=== PATIENT | male | born 1965 | race Two or more races ===

== ENCOUNTER 2017-01-29 08:22 | Inpatient (IN) | payer OTHER ==
[~2017-01-29] VITALS: Ht 188 cm; Wt 99.1 kg
[2017-01-29] VITALS (13 sets, daily range): BP systolic 93–135; BP diastolic 57–73
[~2017-01-29 08:22] MED LIST: GEMF600T3 PO; LISI10TA2 PO; OMEG1CAP38 PO; PRAV40TA2 PO
[2017-01-29 08:57] LABS: HEMATOCRIT 44.7 % (39.0-53.0); HEMOGLOBIN 15.1 g/dL (13.0-17.5); RED BLOOD COUNT 5.18 x10^6/uL (4.30-5.70); RED CELL DISTRIBUTION WIDTH 13.6 % (11.5-14.5); WHITE BLOOD COUNT 3.7 x10^3/uL (4.0-11.0)
[2017-01-29 09:08] LABS: CALCIUM 8.9 mg/dL (8.5-10.1); CREATININE 0.8 mg/dL (0.7-1.3); GFR 101.5; POTASSIUM 3.6 mmol/L (3.5-5.1); PROTHROMBIN TIME PATIENT 12.9 SEC (11.7-14.0)
[2017-01-29] MEDS ORDERED: LIDOCAINE 2% 20 ML VIAL. ONE (09:22)
[2017-01-29] MEDS ORDERED: IOHEXOL 300 MG/ML 100ML VIAL. ONE (09:22)
[2017-01-29] MEDS ORDERED: MIDAZOLAM HCL/PF 2 MG/2 ML VIAL. ONE (09:36)
[2017-01-29] MEDS ORDERED: fentaNYL PF VIAL 100 MCG/2 ML VIAL ONE (09:36)
--- NOTE | 2017-01-29 09:42 | PDOC ---
MODERATE SEDATION ASSESSMENT RISKS/ALTERNATIVES Risks/Alternatives Risks and alternatives of this type of sedation and procedure discussed with: RISK/ALTERNATIVES: Patient H & P ON CHART H & P H & P on chart and reviewed for co-morbid conditions and appropriate labs. H&P ON CHART: Yes STATUS PREG STATUS ASSESSED: Yes MEDS/ALLERGIES REVIEWED Meds/Allergies Reviewed Medications and Allergies including time and route of recently administered narcotics and sedatives. MEDS/ALLERGIES REVIEWED: Yes ASA RATING ASA RATING: II AIRWAY ASSESSMENT Airway Assessment Airway patency, oral function limitations, presence of caps, crowns, dentures, partials, and ability to extend neck assessed. AIRWAY ASSESSMENT: Yes MALLAMPATI SCORE MALLAMPATI SCORE: II PRE-SEDATION ASSESSMENT PRE-SEDATION ASSESSMENT: Yes ASIF BOWDEN MD Jan 29, 2017 09:42
[2017-01-29] MEDS ORDERED: NITROGLYCERIN SUBLINGUAL 0.4 MG BOTTLE OF 25. SL PRN (10:15)
[2017-01-29] MEDS ORDERED: IOHEXOL 300 MG/ML 100ML VIAL. IART ONE (10:15)
[2017-01-29] MEDS ORDERED: LIDOCAINE 2% 20 ML VIAL. IJ ONE (10:15)
[2017-01-29] MEDS ORDERED: MIDAZOLAM HCL/PF 2 MG/2 ML VIAL. IV ONE (10:15)
[2017-01-29] MEDS ORDERED: 0.9 % SODIUM CHLORIDE 10 ML DISP.SYRIN. IV PRN (10:15)
[2017-01-29] MEDS ORDERED: fentaNYL PF VIAL 100 MCG/2 ML VIAL IV ONE (10:15)
[2017-01-29] MEDS ORDERED: GEMF600T3 PO (11:09)
[2017-01-29] MEDS ORDERED: DAPA1TAB PO (11:09)
[2017-01-29] MEDS ORDERED: DEXTROSE 50% 25 GM / 50ML DISP.SYRIN. IV PRN (11:45)
[2017-01-29] MEDS: INSULIN ASPART 300 UNITS/3 ML INSULN.PEN SQ SCH ×2 (12:00→17:00)
[2017-01-29 12:17] LABS: BASO % 1 % (0-3); EOS % 1 % (0-3); HEMATOCRIT 45.1 % (39.0-53.0); HEMOGLOBIN 15.3 g/dL (13.0-17.5); LYMPH # 1.6 x10^3/uL (1.0-4.8); LYMPH % 44 % (24-48); MEAN CORPUSCULAR HEMOGLOBIN 29 pg (25-35); MEAN CORPUSCULAR HGB CONC 34 g/dL (31-37); MEAN CORPUSCULAR VOLUME 87 fL (79-100); MONO % 8 % (0-9); NEUT % 46 % (31-73); PLATELET COUNT 144 x10^3/uL (140-400); RED BLOOD COUNT 5.18 x10^6/uL (4.30-5.70); RED CELL DISTRIBUTION WIDTH 13.9 % (11.5-14.5); WHITE BLOOD COUNT 3.6 x10^3/uL (4.0-11.0)
[2017-01-29] MEDS ORDERED: PNEUMOCOCCAL VAX SCREEN BY RX. MC PRN (12:30)
[2017-01-29] MEDS ORDERED: PNEUMOC CONJ VACC 23-VALENT 0.5 ML VIAL. VAX IM ONE (13:00)
[2017-01-29] MEDS ORDERED: LISINOPRIL 10 MG TABLET PO SCH (15:30)
--- NOTE | 2017-01-29 15:51 | CARD ---
APPROVED REPORT Procedure(s) performed: Moderate Sedation: 40 Minutes HISTORY The patient is a 51 year-old male with a history of : previous [place], diabetes mellitus with treatment, coronary artery disease, previous PCI (The PCI date was ), hypertension, dyslipidemia. INDICATION The indication(s) include : positive stress test, unstable angina , chest pain. CASE TECHNIQUE The patient was brought electively into the cardiac catheterization lab. A timeout was performed conf irming the patient's name, date of , procedure, and site of procedure. All necessary parties wer e wearing the appropriate personal protective equipment and radiation monitoring devices. After expla ining the risks and benefits of the procedure, informed consent was obtained.(See nursing notes for m edications administered). The right groin was sterilely prepped and draped. The right femoral groin w as infiltrated with 2% Lidocaine subcutaneous anesthesia. During this case, Fluoroscopy and low osmol ar contrast were used for imaging. A sheath was inserted into the right femoral artery without diffic ulty. Coronary angiography was performed using coronary diagnostic catheters. The left coronary syste m was accessed and visualized with a Diagnostic catheter. The right coronary system was accessed and visualized with a Diagnostic catheter. The left ventricle was accessed and visualized with a Diagnost ic catheter. Left ventricular/Aortic Valve gradient assessed on pullback. Left ventriculogram was per formed in SCHMIDT projection. Hemostasis was obtained with manual pressure following sheath removal witho ut any complications. The patient tolerated the procedure well and there were no complications associ ated with the procedure. Coronary Angiography The patient's coronary anatomy is right dominant. The left main coronary artery is a medium size vessel free of disease. The left main bifurcates to th e left anterior descending and circumflex. The left anterior descending artery is a medium size vessel with stenosis. There is a 90% stenosis in the mid segment. The first diagonal branch is a medium size vessel with stenosis. There is a 90% scottie nosis in the proximal segment. The second diagonal branch is a small size vessel free of disease. The third diagonal branch is a small size vessel free of disease. The circumflex artery is a medium size vessel with stenosis. There is a 100% stenosis in the mid segm ent. The first obtuse marginal branch is a medium size vessel free of disease. The second obtuse raudel inal branch is a medium size vessel with stenosis. There is a 100% stenosis in the mid segment. above the stents The right coronary artery is a medium size vessel with stenosis. There is a 85% stenosis in the mid s egment. and a 90% distal lesion The right posterior descending artery is a medium size vessel with in timal irregularities and without significant stenosis. The right posterolateral branch is a medium si ze vessel with stenosis. There is a 100% stenosis in the ostial segment. Left Ventriculography The left ventricle is normal in size with normal contractility. The left ventricular ejection fractio n is estimated to be 50%. The left ventricular end diastolic pressure is 12 mmHg. There was no gradie nt across the aortic valve upon pullback. Conclusion This pt with a Hx of stenting to the RCA and the OM has all of the stents occluded. Severe [place] vessel CAD in a diabetic pt. The LV EF is low normal. I would recommend CABGS. Recommendations CABG
[2017-01-29] MEDS: GEMFIBROZIL 600 MG TABLET. PO SCH (15:55)
[2017-01-29] MEDS: OMEGA-3 FATTY ACIDS/FISH OIL 1,000 MG CAPSULE. PO SCH (15:55)
--- NOTE | 2017-01-29 18:12 | HP ---
ADMIT DATE: 01/29/2017 CHIEF COMPLAINT: Chest pain. HISTORY OF PRESENT ILLNESS: This patient is a 51-year-old gentleman with a known history of hypertension and diabetes who has known coronary artery disease and has had multiple stenting of the circumflex and the right coronary artery. The patient came to see me because he kept having episodes of exertional chest pains and a stress test was done in the office that showed significant changes with the EKG. It was decided to bring the patient in for a heart catheterization. After we obtained an informed consent, a heart catheterization was performed earlier today and it shows severe triple vessel coronary artery disease with a left ventricular ejection fraction of 50%. At the present time, the patient denies having any chest pains. PAST MEDICAL HISTORY: Significant for hypertension, diabetes and coronary artery disease. PHYSICAL EXAMINATION: GENERAL: The patient is not in acute distress at this time. HEENT: Pupils are reactive, oral mucosa well hydrated. NECK: Supple. No JVD. LUNGS: Clear. HEART: Regular rate and rhythm, normal S1, normal S2, no S3, no S4, no rubs, no clicks, no murmurs. ABDOMEN: Soft. Bowel sounds are present. EXTREMITIES: No edema. NEUROLOGIC: Grossly intact. IMPRESSION: This patient came in with exertional angina and has a known history of coronary artery disease with previous stenting. He had a heart catheterization done today that shows severe triple vessel coronary artery disease, therefore we are going to consult the CV surgeon for bypass surgery. This will be done during this admission. I have discussed this with the patient as well as the family. ASIF BOWDEN MD DR: MONIQUE/felipe JOB#: [id number] / [id number]
--- NOTE | 2017-01-29 18:28 | PDOC2 ---
CONSULT Date of Consult Date of Consult DATE: 01/29/17 TIME: 18:19 Reason for Consult Reason for Consult: Severe three-vessel coronary artery disease Referring Physician Referring Physician: Dr. Crow Identification/Chief Complaint Chief Complaint Angina and shortness of breath Problems: Source Source: Chart review, Patient History of Present Illness Reason for Visit: The patient is a 51-year-old male, with a history of diabetes and hyperlipidemia , and known ischemic heart disease status post PCI to the RCA and obtuse marginal proximally 10 years ago, who presents with a long-standing history of angina on exertion. He also reports shortness of breath. He had a stress test which was positive. He underwent coronary angiography today which demonstrated a 90% proximal LAD stenosis, an occluded mid left circumflex with an occluded OM stent, ostial disease in a relatively large first diagonal, an occluded RCA stent with a potentially bypassable RPDA. LV function is preserved on LV gram. I was consulted to consider the patient for coronary surgical revascularization. Past Medical History Cardiovascular: CAD, HTN, Hyperlipidemia Pulmonary: No pertinent hx GI: No pertinent hx Heme/Onc: No pertinent hx Hepatobiliary: No pertinent hx Psych: No pertinent hx Rheumatologic: No pertinent hx Infectious disease: No pertinent hx ENT: No pertinent hx Renal/: No pertinent hx Endocrine: No pertinent hx Dermatology: No pertinent hx Past Surgical History Past Surgical History: No pertinent history Family History Family History: No Significant Social History No ALCOHOL: none Drugs: None Lives: with Family Current Medications Current Medications Current Medications Heparin Sodium/ Sodium Chloride 500 ml @ As Directed STK-MED ONCE .ROUTE ; Start 01/29/17 at 09:21; Stop 01/29/17 at 09:22; Status DC Iohexol (Omnipaque 300 Mg/ml) 100 ml STK-MED ONCE .ROUTE ; Start 01/29/17 at 09 :22; Stop 01/29/17 at 09:23; Status DC Lidocaine HCl 20 ml STK-MED ONCE .ROUTE ; Start 01/29/17 at 09:22; Stop at 09:23; Status DC Fentanyl Citrate (Fentanyl 2ml Vial) 100 mcg STK-MED ONCE .ROUTE ; Start at 09:36; Stop 01/29/17 at 09:37; Status DC Midazolam HCl (Versed) 2 mg STK-MED ONCE .ROUTE ; Start 01/29/17 at 09:36; Stop 01/29/17 at 09:37; Status DC Heparin Sodium/ Sodium Chloride 1,000 unit 1X ONCE IART Last administered on 01/29/17 10:16; Start 01/29/17 at 10:15; Stop 01/29/17 at 10:16; Status DC Midazolam HCl (Versed) 2 mg 1X ONCE IV Last administered on 01/29/17 10:17; Start 01/29/17 at 10:15; Stop 01/29/17 at 10:16; Status DC Fentanyl Citrate (Fentanyl 2ml Vial) 100 mcg 1X ONCE IV Last administered on 01/29/17 10:17; Start 01/29/17 at 10:15; Stop 01/29/17 at 10:16; Status DC Iohexol (Omnipaque 300 Mg/ml) 100 ml 1X ONCE IART Last administered on 10:16; Start 01/29/17 at 10:15; Stop 01/29/17 at 10:16; Status DC Lidocaine HCl 17 ml 1X ONCE IJ Last administered on 01/29/17 10:16; Start 01/29/17 at 10:15; Stop 01/29/17 at 10:16; Status DC Sodium Chloride (Normal Saline Flush) 3 ml QSHIFT PRN IV AFTER MEDS AND BLOOD DRAWS; Start 01/29/17 at 10:15; Stop 01/30/17 at 10:14 Nitroglycerin (Nitrostat) 0.4 mg PRN Q5MIN PRN SL CHEST PAIN; Start 01/29/17 at 10:15; Stop 01/30/17 at 10:14 Gemfibrozil (Lopid) 600 mg DAILY PO Last administered on 01/29/17 15:55; Start 01/29/17 at 12:30 Fish Oil (Fish Oil) 1,000 mg DAILY PO Last administered on 01/29/17 15:55; Start 01/29/17 at 12:30 Atorvastatin Calcium (Lipitor) 10 mg QHS PO ; Start 01/29/17 at 21:00 Insulin Aspart (NovoLOG) 0-5 UNITS TIDWMEALS SQ ; Start 01/29/17 at 12:30 Dextrose (Dextrose 50%-Water Syringe) 12.5 gm PRN Q15MIN PRN IV SEE COMMENTS; Start 01/29/17 at 11:45 Pneumococcal Polyvalent Vaccine (Do NOT chart on this placeholder) 1 each PRN 1X PRN MC SEE COMMENTS; Start 01/29/17 at 12:30; Status UNV Pneumococcal Polyvalent Vaccine (Pneumovax 23) 0.5 ml ONCE ONCE VAX IM ; Start 01/29/17 at 13:00; Stop 01/29/17 at 13:01; Status DC Lisinopril (Prinivil) 10 mg DAILY PO ; Start 01/29/17 at 15:30; Stop 01/29/17 at 18:09; Status DC Metoprolol Tartrate (Lopressor) 25 mg BID PO ; Start 01/29/17 at 21:00 Zolpidem Tartrate (Ambien) 5 mg PRN QHS PRN PO INSOMNIA, MAY REPEAT IN 1HR; Start 01/29/17 at 18:15 Cefazolin Sodium/ Dextrose 50 ml @ 100 mls/hr 1X ONCE IV ; Start 01/30/17 at 06:00; Stop 01/30/17 at 06:29 Active Scripts Active Reported Gemfibrozil 600 Mg Tablet 1 Tab PO DAILY Xigduo Xr 5 mg-500 mg Tablet (Dapagliflozin/Metformin HCl) 1 Each Tab.bp.24h 1 Each PO BID Avery 3 Fish Oil Softgel (Avery-3 Fatty Acids/Fish Oil) 1 Each Capsule.dr 1 Each PO DAILY Pravastatin Sodium 40 Mg Tablet 40 Mg PO DAILY Lisinopril 10 Mg Tablet 10 Mg PO DAILY Allergies Allergies: Coded Allergies: No Known Drug Allergies (Unverified , 01/17/17) ROS General: No: Chills, Night Sweats, Fatigue, Malaise, Appetite PSYCHOLOGICAL ROS: No: Anxiety, Behavioral Disorder, Concentration difficultie , Decreased libido, Depression, Disorientation, Hallucinations, Hostility, Irritablity, Memory difficulties, Mood Swings, Obsessive thoughts, Physical abuse, Sexual abuse, Sleep disturbances, Suicidal ideation Eyes: No Blurry vision, No Decreased vision, No Double vision, No Dry eyes, No Excessive tearing, No Eye Pain, No Itchy Eyes, No Loss of vision, No Photophobia , No Scotomata, No Uses contacts, No Uses glasses HEENT: No: Heacaches, Visual Changes, Hearing change, Nasal congestion, Nasal discharge, Oral lesions, Sinus pain, Sore Throat, Epistaxis, Sneezing, Snoring, Tinnitus, Vertigo, Vocal changes ALLERGY AND IMMUNOLOGY: No: Hives, Insect Bite Sensitivity, Itchy/Watery Eyes, Nasal Congestion, Post Nasal Drip, Seasonal Allergies Hematological and Lymphatic: No: Bleeding Problems, Blood Clots, Blood Transfusions, Brusing, Night Sweats, Pallor, Swollen Lymph Nodes Respiratory: YES: SOB with excertion, No: Cough, Hemoptysis, Orthopnea, Pleuritic Pain, Shortness of breath, Sputum Changes, Stridor, Tachypnea, Wheezing Cardiovascular: yes Chest Pain, No Palpitations, No Orthopnea, No Paroxysmal Noc. Dyspnea, No Edema, No Lt Headedness Gastrointestinal: No Nausea, No Vomiting, No Abdominal Pain, No Diarrhea, No Constipation, No Melena, No Hematochezia Genitourinary: No Dysuria, No Frequency, No Incontinence, No Hematuria, No Retention, No Discharge, No Urgency, No Pain, No Flank Pain Musculoskeletal: No Gait Disturbance, No Joint Pain, No Joint Stiffness, No Joint Swelling, No Muscle Pain, No Muscular Weakness, No Pain In:, No Swelling In: Neurological: No Behavorial Changes, No Bowel/Bladder ControlChng, No Confusion , No Dizziness, No Gait Disturbance, No Headaches, No Impaired Coord/balance, No Memory Loss, No Numbness/Tingling, No Seizures, No Speech Problems, No Tremors, No Visual Changes, No Weakness Skin: Yes Other, No Dry Skin, No Eczema, No Hair Changes, No Lumps, No Mole Changes, No Mottling, No Nail Changes, No Pruritus, No Rash, No Skin Lesion Changes, No Acne Physical Exam General: Alert, Oriented X3, No acute distress HEENT: Atraumatic, PERRLA Lungs: Clear to auscultation Heart: Regular rate, Normal S1, Normal S2 Abdomen: Normal bowel sounds, Soft, No tenderness, No hepatosplenomegaly Extremities: No edema, Normal pulses, Other (Kristian's test positive on the left) Skin: No significant lesion Neuro: Normal gait, Normal speech, Strength at 5/5 X4 ext, Normal tone, Sensation intact, Cranial nerves 3-12 NL, Reflexes 2+ MUSCULOSKELETAL: No deformity Vitals VITALS Vital Signs Date Time Temp Pulse Resp B/P (MAP) Pulse Ox O2 Delivery O2 Flow Rate FiO2 01/29/17 15:29 100/67 01/29/17 15:00 98.2 72 16 98 Nasal Cannula 98.2 01/29/17 12:02 2.0 Labs Labs Laboratory Tests Test 01/29/17 08:50 01/29/17 09:04 01/29/17 11:45 01/29/17 17:33 White Blood Count 3.6 x10^3/uL (4.0-11.0) Red Blood Count 5.18 x10^6/uL (4.30-5.70) Hemoglobin 15.3 g/dL (13.0-17.5) Hematocrit 45.1 % (39.0-53.0) Mean Corpuscular Volume 87 fL (79-100) Mean Corpuscular Hemoglobin 29 pg (25-35) Mean Corpuscular Hemoglobin Concent 34 g/dL (31-37) Red Cell Distribution Width 13.9 % (11.5-14.5) Platelet Count 144 x10^3/uL (140-400) Neutrophils (%) (Auto) 46 % (31-73) Lymphocytes (%) (Auto) 44 % (24-48) Monocytes (%) (Auto) 8 % (0-9) Eosinophils (%) (Auto) 1 % (0-3) Basophils (%) (Auto) 1 % (0-3) Neutrophils # (Auto) 1.7 x10^3uL (1.8-7.7) Lymphocytes # (Auto) 1.6 x10^3/uL (1.0-4.8) Monocytes # (Auto) 0.3 x10^3/uL (0.0-1.1) Eosinophils # (Auto) 0.0 x10^3/uL (0.0-0.7) Basophils # (Auto) 0.0 x10^3/uL (0.0-0.2) Prothrombin Time 12.9 SEC (11.7-14.0) Prothromb Time International Ratio 1.0 (0.8-1.1) Sodium Level 140 mmol/L (136-145) Potassium Level 3.6 mmol/L (3.5-5.1) Chloride Level 103 mmol/L (98-107) Carbon Dioxide Level 27 mmol/L (21-32) Anion Gap 10 (6-14) Blood Urea Nitrogen 14 mg/dL (8-26) Creatinine 0.8 mg/dL (0.7-1.3) Estimated GFR (Cockcroft-Gault) 101.5 Glucose Level 127 mg/dL (70-99) Calcium Level 8.9 mg/dL (8.5-10.1) Glucose (Fingerstick) 76 mg/dL (70-99) 117 mg/dL (70-99) 86 mg/dL (70-99) Laboratory Tests Test 01/29/17 08:50 01/29/17 09:04 01/29/17 11:45 01/29/17 17:33 White Blood Count 3.6 x10^3/uL (4.0-11.0) Red Blood Count 5.18 x10^6/uL (4.30-5.70) Hemoglobin 15.3 g/dL (13.0-17.5) Hematocrit 45.1 % (39.0-53.0) Mean Corpuscular Volume 87 fL (79-100) Mean Corpuscular Hemoglobin 29 pg (25-35) Mean Corpuscular Hemoglobin Concent 34 g/dL (31-37) Red Cell Distribution Width 13.9 % (11.5-14.5) Platelet Count 144 x10^3/uL (140-400) Neutrophils (%) (Auto) 46 % (31-73) Lymphocytes (%) (Auto) 44 % (24-48) Monocytes (%) (Auto) 8 % (0-9) Eosinophils (%) (Auto) 1 % (0-3) Basophils (%) (Auto) 1 % (0-3) Neutrophils # (Auto) 1.7 x10^3uL (1.8-7.7) Lymphocytes # (Auto) 1.6 x10^3/uL (1.0-4.8) Monocytes # (Auto) 0.3 x10^3/uL (0.0-1.1) Eosinophils # (Auto) 0.0 x10^3/uL (0.0-0.7) Basophils # (Auto) 0.0 x10^3/uL (0.0-0.2) Prothrombin Time 12.9 SEC (11.7-14.0) Prothromb Time International Ratio 1.0 (0.8-1.1) Sodium Level 140 mmol/L (136-145) Potassium Level 3.6 mmol/L (3.5-5.1) Chloride Level 103 mmol/L (98-107) Carbon Dioxide Level 27 mmol/L (21-32) Anion Gap 10 (6-14) Blood Urea Nitrogen 14 mg/dL (8-26) Creatinine 0.8 mg/dL (0.7-1.3) Estimated GFR (Cockcroft-Gault) 101.5 Glucose Level 127 mg/dL (70-99) Calcium Level 8.9 mg/dL (8.5-10.1) Glucose (Fingerstick) 76 mg/dL (70-99) 117 mg/dL (70-99) 86 mg/dL (70-99) Images Images Coronary Angiography The patient's coronary anatomy is right dominant. The left main coronary artery is a medium size vessel free of disease. The left main bifurcates to the left anterior descending and circumflex. The left anterior descending artery is a medium size vessel with stenosis. There is a 90% stenosis in the mid segment. The first diagonal branch is a medium size vessel with stenosis. There is a 90% stenosis in the proximal segment. The second diagonal branch is a small size vessel free of disease. The third diagonal branch is a small size vessel free of disease. The circumflex artery is a medium size vessel with stenosis. There is a 100% stenosis in the mid segment. The first obtuse marginal branch is a medium size vessel free of disease. The second obtuse marginal branch is a medium size vessel with stenosis. There is a 100% stenosis in the mid segment. above the stents The right coronary artery is a medium size vessel with stenosis. There is a 85% stenosis in the mid segment. and a 90% distal lesion The right posterior descending artery is a medium size vessel with intimal irregularities and without significant stenosis. The right posterolateral branch is a medium size vessel with stenosis. There is a 100% stenosis in the ostial segment. Left Ventriculography The left ventricle is normal in size with normal contractility. The left ventricular ejection fraction is estimated to be 50%. The left ventricular end diastolic pressure is 12 mmHg. There was no gradient across the aortic valve upon pullback. Conclusion This pt with a Hx of stenting to the RCA and the OM has all of the stents occluded. Severe [place] vessel CAD in a diabetic pt. The LV EF is low normal. Assessment/Plan Assessment/Plan 51-year-old male, with a history of diabetes and hyperlipidemia, and known ischemic heart disease status post PCI to the RCA and obtuse marginal proximally 10 years ago, who presents with a long-standing history of angina on exertion. He also reports shortness of breath. He had a stress test which was positive. He underwent coronary angiography today which demonstrated a 90% proximal LAD stenosis, an occluded mid left circumflex with an occluded OM stent , ostial disease in a relatively large first diagonal, an occluded RCA stent with a potentially bypassable RPDA. LV function is preserved on LV gram. I was consulted to consider the patient for coronary surgical revascularization. The patient is a good candidate for CABG Will plan for CABG 3-4 on , February 01, 2017. I will use a left radial artery for the OM and the diagonal. It is possible that the OM may not be bypassable considering that the patient currently has a long stent. I will not be able to sew a graft on to the stent. Hopefully no be a spot distal to the stent in order to bypass the OM. Otherwise he will need a AMAYA to LAD, radial artery to D1 and possibly OM1, SVG to RPDA. I quoted a perioperative mortality of 1-2%, 1% risk of renal failure, 1% risk of stroke, 5%-10% risk of pneumonia, 5% risk of wound infection, 5-10% of re- sternotomy for bleeding, 5% risk of perioperative ID, 20%-30% risk of postoperative arrhythmias. The patient accepts these risks and agrees to proceed. Will obtain Transthoracic echo Carotid duplex Bilateral lower extremity vein mapping Noncontrast CT of the chest Crossmatch to units PRBCs, on hold for OR He has a good Kristian's test. He has a strong ulnar pulse on the left. He is right -handed. SB MOMIN MD Jan 29, 2017 18:28
[2017-01-29] MEDS: ATORVASTATIN CALCIUM 10 MG TABLET. PO SCH (20:53)
[2017-01-29] MEDS: METOPROLOL TART IMMED RELEASE 25 MG TABLET. PO SCH (20:54)
[2017-01-30 03:21] VITALS: BP 96/60
[2017-01-30 05:14] LABS: BASO % 1 % (0-3); EOS % 1 % (0-3); HEMATOCRIT 44.3 % (39.0-53.0); HEMOGLOBIN 15.2 g/dL (13.0-17.5); LYMPH # 2.3 x10^3/uL (1.0-4.8); LYMPH % 46 % (24-48); MEAN CORPUSCULAR HEMOGLOBIN 30 pg (25-35); MEAN CORPUSCULAR HGB CONC 34 g/dL (31-37); MEAN CORPUSCULAR VOLUME 86 fL (79-100); MONO % 8 % (0-9); NEUT % 45 % (31-73); PLATELET COUNT 142 x10^3/uL (140-400); RED BLOOD COUNT 5.14 x10^6/uL (4.30-5.70); RED CELL DISTRIBUTION WIDTH 14.1 % (11.5-14.5); WHITE BLOOD COUNT 4.9 x10^3/uL (4.0-11.0)
[2017-01-30 05:23] LABS: INR 1.1 (0.8-1.1); PROTHROMBIN TIME PATIENT 13.1 SEC (11.7-14.0)
[2017-01-30 05:43] LABS: ALBUMIN 3.8 g/dL (3.4-5.0); CALCIUM 8.8 mg/dL (8.5-10.1); CREATININE 0.7 mg/dL (0.7-1.3); DIRECT BILIRUBIN 0.1 mg/dL (0.0-0.2); GFR 118.4; POTASSIUM 3.4 mmol/L (3.5-5.1); TOTAL BILIRUBIN 0.6 mg/dL (0.2-1.0); TOTAL PROTEIN 7.5 g/dL (6.4-8.2)
[2017-01-30 07:00] VITALS: BP 102/67
--- NOTE | 2017-01-30 07:22 | RAD ---
Carotid ultrasound, 01/29/2017: History: Preop for CABG, vascular disease Duplex evaluation of the carotid arteries in neck was performed including grayscale, color-flow and spectral Doppler analysis There is mild smooth intimal thickening bilaterally. No significant focal plaque formation is seen. The peak systolic velocity in the right internal carotid artery is 59 cm/s with an end-diastolic velocity of 25 cm/s. The peak systolic velocity in the left internal carotid artery is 54 cm per sec with an end-diastolic velocity of 26 cm/s. Antegrade flow is present in both vertebral arteries in the neck. IMPRESSION: No duplex evidence of significant carotid stenosis in the neck. Note: Stenosis calculations for CTA, MRA and conventional angiography are based upon determination of the distal ICA diameter in accordance with the NASCET methodology. Stenosis calculations for Doppler studies are derived from validated velocity criteria which are known to correlate with NASCET methodology of determining stenosis.
--- NOTE | 2017-01-30 07:25 | RAD ---
Bilateral lower extremity vein mapping, 01/29/2017: History: Preop for coronary artery surgery Grayscale evaluation of the saphenous veins in both lower extremities was performed as requested. On the right, the greater saphenous vein is patent measuring 3.0 to 4.2 mm in diameter in the thigh and 2.6 to 3.3 mm in the lower leg. The right lesser saphenous vein is patent measuring 1.9 to 2.7 mm. On the left, the greater saphenous vein in the thigh is patent measuring 3.6 to 6.6 mm. In the lower leg it measures 2.8 to 3.3 mm. The left lesser saphenous vein is patent measuring 2.4 to 2.8 mm. IMPRESSION: Patent greater saphenous and lesser saphenous veins in both lower extremities with measurements as described above and fully delineated on the technologist worksheet available in the [employer] PACS system.
--- NOTE | 2017-01-30 07:30 | RAD ---
Portable chest, 01/30/2017: History: Preop CABG The heart size and pulmonary vascularity are normal. There is minimal linear atelectasis or scarring in the left base. The lungs are otherwise clear. No pleural fluid is evident. Impression: Minimal left basilar linear atelectasis or scarring.
[2017-01-30] MEDS: INSULIN ASPART 300 UNITS/3 ML INSULN.PEN SQ SCH ×3 (07:44→17:00)
[2017-01-30] MEDS: METOPROLOL TART IMMED RELEASE 25 MG TABLET. PO SCH ×2 (08:59→21:38)
[2017-01-30] MEDS: GEMFIBROZIL 600 MG TABLET. PO SCH (08:59)
[2017-01-30] MEDS: OMEGA-3 FATTY ACIDS/FISH OIL 1,000 MG CAPSULE. PO SCH (08:59)
--- NOTE | 2017-01-30 09:45 | RAD ---
CT chest without contrast 01/20/2017 Clinical indication: Preoperative CABG. Assess for lung lesions and ascending aortic calcifications. Comparison: None. Technique: Multiple CT images of the chest were obtained without contrast according to standard protocol. PQRS Compliance Statement: One or more of the following individualized dose reduction techniques were utilized for this examination: 1. Automated exposure control 2. Adjustment of the mA and/or kV according to patient size 3. Use of iterative reconstruction technique CT chest findings: Heart size is normal without significant pericardial effusion. There are three-vessel coronary artery calcifications. The thoracic aorta is normal in caliber with trace calcifications at the thoracic aortic arch. No axillary, mediastinal or obvious hilar lymphadenopathy, though evaluation is limited in the absence of intravenous contrast. The central airways are patent. There is a subpleural noncalcified nodule in the left lower lobe measuring 0.4 cm series 2/image 45. There is minimal linear atelectasis or scarring in the lung bases. No pleural effusion or pneumothorax. There are no destructive osseous lesions. Limited images of the upper abdomen: Grossly unremarkable. Impression: 1. Small, 0.4 cm, noncalcified left lower lobe pulmonary nodule, indeterminate. Follow-up CT chest in 3 months is recommended to assess for stability. 2. Normal caliber thoracic aorta with trace calcified atheromatous disease of the thoracic aortic arch. 3. Three-vessel coronary artery calcifications.
[2017-01-30 10:51] VITALS: BP 115/75
[2017-01-30 14:58] VITALS: BP 123/69
--- NOTE | 2017-01-30 16:58 | CARD ---
APPROVED REPORT EXAM: Two-dimensional and M-mode echocardiogram with Doppler and color Doppler. Other Information Quality : Good INDICATION Cardiac Disease: CAD Chest Pain Pre-Op CABG 2D DIMENSIONS RVDd2.9 (2.9-3.5cm)Left Atrium(2D)3.4 (1.6-4.0cm) IVSd1.2 (0.7-1.1cm)Aortic Root(2D)3.0 (2.0-3.7cm) LVDd5.0 (3.9-5.9cm)LVOT Diameter2.3 (1.8-2.4cm) PWd1.1 (0.7-1.1cm)LVDs4.0 (2.5-4.0cm) FS (%) 25.0 %SV50.3 ml LVEF(%)50.0 (>50%) Aortic Valve AoV Peak Jefferson.114.3cm/sAoV VTI22.5cm AO Peak GR.5.2mmHgLVOT Peak [place].97.2cm/s LVOT VTI 19.68cmAO Mean GR.3mmHg HAILE (VMAX)3.34oq3VBD (VTI)3.49cm2 Mitral Valve MV E Ntgyblzx68.0cm/sMV DECEL LRCN039io MV A Nechqwgq91.6cm/sMV TRS77mb E/A Ratio0.8MVA (PHT)3.63cm2 TDI E/Lateral E'4.3E/Medial E'7.2 Pulmonary Vein S1 Ckhmejrf09.8cm/sD2 Hsxrmzpd49.9cm/s LEFT VENTRICLE The left ventricle is normal size. There is mild concentric left ventricular hypertrophy. The Ejectio n Fraction of the LV is 50%. There is hypokinesis in the lateral wall. There is hypokinesis in the in ferior wall. Transmitral Doppler flow pattern is Grade I-abnormal relaxation pattern. RIGHT VENTRICLE The right ventricle is normal size. The right ventricular systolic function is normal. ATRIA The left atrium size is normal. The right atrium size is normal. The interatrial septum is intact wit h no evidence for an atrial septal defect or patent foramen ovale as noted on 2-D or Doppler imaging. AORTIC VALVE The aortic valve is normal in structure and function. Doppler and Color Flow revealed no significant aortic regurgitation. There is no significant aortic valvular stenosis. MITRAL VALVE The mitral valve is normal in structure and function. There is no evidence of mitral valve prolapse. There is no mitral valve stenosis. Doppler and Color Flow revealed no mitral valve regurgitation note d. TRICUSPID VALVE The tricuspid valve is normal in structure and function. Doppler and Color Flow revealed no tricuspid valve regurgitation noted. There is no tricuspid valve stenosis. PULMONIC VALVE The pulmonary valve is normal in structure and function. Doppler and Color Flow revealed no pulmonic valvular regurgitation. There is no pulmonic valvular stenosis. GREAT VESSELS The aortic root is normal in size. The ascending aorta is normal in size. The IVC is normal in size a nd collapses >50% with inspiration. PERICARDIAL EFFUSION There is no evidence of significant pericardial effusion. Critical Notification Critical Value: No <Conclusion> The Ejection Fraction of the LV is 50%. There is mild concentric left ventricular hypertrophy. Transmitral Doppler flow pattern is Grade I-abnormal relaxation pattern. The left atrium size is normal. The right atrium size is normal. The aortic valve is normal in structure and function. The mitral valve is normal in structure and function. The tricuspid valve is normal in structure and function. The pulmonary valve is normal in structure and function. There is no evidence of significant pericardial effusion.
--- NOTE | 2017-01-30 17:33 | PDOC ---
PROGRESS NOTES Subjective Subjective No new complaints. Patient going for CABG tomorrow. Objective Objective Vital Signs Date Time Temp Pulse Resp B/P (MAP) Pulse Ox O2 Delivery O2 Flow Rate FiO2 01/30/17 14:58 98.5 76 16 123/69 (87) 98 Room Air 98.5 01/29/17 20:00 2.0 Intake and Output 01/31/17 07:00 # Voids 3 Physical Exam Physical Exam No significant changes cardiac exam Assessment Assessment A escamilla with severe coronary artery disease. Going for CABG in a.m. Comment Review of Relevant I have reviewed the following items nguyễn (where applicable) has been applied. Labs Laboratory Tests Test 01/29/17 08:50 01/29/17 09:04 01/29/17 11:45 01/29/17 17:33 White Blood Count 3.6 x10^3/uL (4.0-11.0) Red Blood Count 5.18 x10^6/uL (4.30-5.70) Hemoglobin 15.3 g/dL (13.0-17.5) Hematocrit 45.1 % (39.0-53.0) Mean Corpuscular Volume 87 fL (79-100) Mean Corpuscular Hemoglobin 29 pg (25-35) Mean Corpuscular Hemoglobin Concent 34 g/dL (31-37) Red Cell Distribution Width 13.9 % (11.5-14.5) Platelet Count 144 x10^3/uL (140-400) Neutrophils (%) (Auto) 46 % (31-73) Lymphocytes (%) (Auto) 44 % (24-48) Monocytes (%) (Auto) 8 % (0-9) Eosinophils (%) (Auto) 1 % (0-3) Basophils (%) (Auto) 1 % (0-3) Neutrophils # (Auto) 1.7 x10^3uL (1.8-7.7) Lymphocytes # (Auto) 1.6 x10^3/uL (1.0-4.8) Monocytes # (Auto) 0.3 x10^3/uL (0.0-1.1) Eosinophils # (Auto) 0.0 x10^3/uL (0.0-0.7) Basophils # (Auto) 0.0 x10^3/uL (0.0-0.2) Prothrombin Time 12.9 SEC (11.7-14.0) Prothromb Time International Ratio 1.0 (0.8-1.1) Sodium Level 140 mmol/L (136-145) Potassium Level 3.6 mmol/L (3.5-5.1) Chloride Level 103 mmol/L (98-107) Carbon Dioxide Level 27 mmol/L (21-32) Anion Gap 10 (6-14) Blood Urea Nitrogen 14 mg/dL (8-26) Creatinine 0.8 mg/dL (0.7-1.3) Estimated GFR (Cockcroft-Gault) 101.5 Glucose Level 127 mg/dL (70-99) Calcium Level 8.9 mg/dL (8.5-10.1) Glucose (Fingerstick) 76 mg/dL (70-99) 117 mg/dL (70-99) 86 mg/dL (70-99) Test 01/29/17 21:20 01/30/17 03:50 01/30/17 07:21 01/30/17 11:51 Glucose (Fingerstick) 156 mg/dL (70-99) 126 mg/dL (70-99) 157 mg/dL (70-99) White Blood Count 4.9 x10^3/uL (4.0-11.0) Red Blood Count 5.14 x10^6/uL (4.30-5.70) Hemoglobin 15.2 g/dL (13.0-17.5) Hematocrit 44.3 % (39.0-53.0) Mean Corpuscular Volume 86 fL (79-100) Mean Corpuscular Hemoglobin 30 pg (25-35) Mean Corpuscular Hemoglobin Concent 34 g/dL (31-37) Red Cell Distribution Width 14.1 % (11.5-14.5) Platelet Count 142 x10^3/uL (140-400) Neutrophils (%) (Auto) 45 % (31-73) Lymphocytes (%) (Auto) 46 % (24-48) Monocytes (%) (Auto) 8 % (0-9) Eosinophils (%) (Auto) 1 % (0-3) Basophils (%) (Auto) 1 % (0-3) Neutrophils # (Auto) 2.2 x10^3uL (1.8-7.7) Lymphocytes # (Auto) 2.3 x10^3/uL (1.0-4.8) Monocytes # (Auto) 0.4 x10^3/uL (0.0-1.1) Eosinophils # (Auto) 0.0 x10^3/uL (0.0-0.7) Basophils # (Auto) 0.0 x10^3/uL (0.0-0.2) Prothrombin Time 13.1 SEC (11.7-14.0) Prothromb Time International Ratio 1.1 (0.8-1.1) Activated Partial Thromboplast Time 33 SEC (24-38) Sodium Level 138 mmol/L (136-145) Potassium Level 3.4 mmol/L (3.5-5.1) Chloride Level 102 mmol/L (98-107) Carbon Dioxide Level 28 mmol/L (21-32) Anion Gap 8 (6-14) Blood Urea Nitrogen 15 mg/dL (8-26) Creatinine 0.7 mg/dL (0.7-1.3) Estimated GFR (Cockcroft-Gault) 118.4 BUN/Creatinine Ratio 21 (6-20) Glucose Level 107 mg/dL (70-99) Calcium Level 8.8 mg/dL (8.5-10.1) Total Bilirubin 0.6 mg/dL (0.2-1.0) Direct Bilirubin 0.1 mg/dL (0.0-0.2) Aspartate Amino Transf (AST/SGOT) 18 U/L (15-37) Alanine Aminotransferase (ALT/SGPT) 25 U/L (16-63) Alkaline Phosphatase 58 U/L (46-116) Total Protein 7.5 g/dL (6.4-8.2) Albumin 3.8 g/dL (3.4-5.0) Albumin/Globulin Ratio 1.0 (1.0-1.7) Test 01/30/17 16:30 Glucose (Fingerstick) 132 mg/dL (70-99) Laboratory Tests Test 01/29/17 17:33 01/29/17 21:20 01/30/17 03:50 01/30/17 07:21 Glucose (Fingerstick) 86 mg/dL (70-99) 156 mg/dL (70-99) 126 mg/dL (70-99) White Blood Count 4.9 x10^3/uL (4.0-11.0) Red Blood Count 5.14 x10^6/uL (4.30-5.70) Hemoglobin 15.2 g/dL (13.0-17.5) Hematocrit 44.3 % (39.0-53.0) Mean Corpuscular Volume 86 fL (79-100) Mean Corpuscular Hemoglobin 30 pg (25-35) Mean Corpuscular Hemoglobin Concent 34 g/dL (31-37) Red Cell Distribution Width 14.1 % (11.5-14.5) Platelet Count 142 x10^3/uL (140-400) Neutrophils (%) (Auto) 45 % (31-73) Lymphocytes (%) (Auto) 46 % (24-48) Monocytes (%) (Auto) 8 % (0-9) Eosinophils (%) (Auto) 1 % (0-3) Basophils (%) (Auto) 1 % (0-3) Neutrophils # (Auto) 2.2 x10^3uL (1.8-7.7) Lymphocytes # (Auto) 2.3 x10^3/uL (1.0-4.8) Monocytes # (Auto) 0.4 x10^3/uL (0.0-1.1) Eosinophils # (Auto) 0.0 x10^3/uL (0.0-0.7) Basophils # (Auto) 0.0 x10^3/uL (0.0-0.2) Prothrombin Time 13.1 SEC (11.7-14.0) Prothromb Time International Ratio 1.1 (0.8-1.1) Activated Partial Thromboplast Time 33 SEC (24-38) Sodium Level 138 mmol/L (136-145) Potassium Level 3.4 mmol/L (3.5-5.1) Chloride Level 102 mmol/L (98-107) Carbon Dioxide Level 28 mmol/L (21-32) Anion Gap 8 (6-14) Blood Urea Nitrogen 15 mg/dL (8-26) Creatinine 0.7 mg/dL (0.7-1.3) Estimated GFR (Cockcroft-Gault) 118.4 BUN/Creatinine Ratio 21 (6-20) Glucose Level 107 mg/dL (70-99) Calcium Level 8.8 mg/dL (8.5-10.1) Total Bilirubin 0.6 mg/dL (0.2-1.0) Direct Bilirubin 0.1 mg/dL (0.0-0.2) Aspartate Amino Transf (AST/SGOT) 18 U/L (15-37) Alanine Aminotransferase (ALT/SGPT) 25 U/L (16-63) Alkaline Phosphatase 58 U/L (46-116) Total Protein 7.5 g/dL (6.4-8.2) Albumin 3.8 g/dL (3.4-5.0) Albumin/Globulin Ratio 1.0 (1.0-1.7) Test 01/30/17 11:51 01/30/17 16:30 Glucose (Fingerstick) 157 mg/dL (70-99) 132 mg/dL (70-99) Medications Current Medications Heparin Sodium/ Sodium Chloride 500 ml @ As Directed STK-MED ONCE .ROUTE ; Start 01/29/17 at 09:21; Stop 01/29/17 at 09:22; Status DC Iohexol (Omnipaque 300 Mg/ml) 100 ml STK-MED ONCE .ROUTE ; Start 01/29/17 at 09 :22; Stop 01/29/17 at 09:23; Status DC Lidocaine HCl 20 ml STK-MED ONCE .ROUTE ; Start 01/29/17 at 09:22; Stop at 09:23; Status DC Fentanyl Citrate (Fentanyl 2ml Vial) 100 mcg STK-MED ONCE .ROUTE ; Start at 09:36; Stop 01/29/17 at 09:37; Status DC Midazolam HCl (Versed) 2 mg STK-MED ONCE .ROUTE ; Start 01/29/17 at 09:36; Stop 01/29/17 at 09:37; Status DC Heparin Sodium/ Sodium Chloride 1,000 unit 1X ONCE IART Last administered on 01/29/17t 10:16; Start 01/29/17 at 10:15; Stop 01/29/17 at 10:16; Status DC Midazolam HCl (Versed) 2 mg 1X ONCE IV Last administered on 01/29/17t 10:17; Start 01/29/17 at 10:15; Stop 01/29/17 at 10:16; Status DC Fentanyl Citrate (Fentanyl 2ml Vial) 100 mcg 1X ONCE IV Last administered on 01/29/17 10:17; Start 01/29/17 at 10:15; Stop 01/29/17 at 10:16; Status DC Iohexol (Omnipaque 300 Mg/ml) 100 ml 1X ONCE IART Last administered on 10:16; Start 01/29/17 at 10:15; Stop 01/29/17 at 10:16; Status DC Lidocaine HCl 17 ml 1X ONCE IJ Last administered on 01/29/17 10:16; Start 01/29/17 at 10:15; Stop 01/29/17 at 10:16; Status DC Sodium Chloride (Normal Saline Flush) 3 ml QSHIFT PRN IV AFTER MEDS AND BLOOD DRAWS; Start 01/29/17 at 10:15; Stop 01/30/17 at 10:14; Status DC Nitroglycerin (Nitrostat) 0.4 mg PRN Q5MIN PRN SL CHEST PAIN; Start 01/29/17 at 10:15; Stop 01/30/17 at 10:14; Status DC Gemfibrozil (Lopid) 600 mg DAILY PO Last administered on 01/30/17 08:59; Start 01/29/17 at 12:30 Fish Oil (Fish Oil) 1,000 mg DAILY PO Last administered on 01/30/17 08:59; Start 01/29/17 at 12:30 Atorvastatin Calcium (Lipitor) 10 mg QHS PO Last administered on 01/29/17 20: 53; Start 01/29/17 at 21:00 Insulin Aspart (NovoLOG) 0-5 UNITS TIDWMEALS SQ ; Start 01/29/17 at 12:30 Dextrose (Dextrose 50%-Water Syringe) 12.5 gm PRN Q15MIN PRN IV SEE COMMENTS; Start 01/29/17 at 11:45 Pneumococcal Polyvalent Vaccine (Do NOT chart on this placeholder) 1 each PRN 1X PRN MC SEE COMMENTS; Start 01/29/17 at 12:30; Status UNV Pneumococcal Polyvalent Vaccine (Pneumovax 23) 0.5 ml ONCE ONCE VAX IM ; Start 01/29/17 at 13:00; Stop 01/29/17 at 13:01; Status DC Lisinopril (Prinivil) 10 mg DAILY PO ; Start 01/29/17 at 15:30; Stop 01/29/17 at 18:09; Status DC Metoprolol Tartrate (Lopressor) 25 mg BID PO Last administered on 01/30/17t 08 :59; Start 01/29/17 at 21:00 Zolpidem Tartrate (Ambien) 5 mg PRN QHS PRN PO INSOMNIA, MAY REPEAT IN 1HR; Start 01/29/17 at 18:15 Cefazolin Sodium/ Dextrose 50 ml @ 100 mls/hr 1X ONCE IV ; Start 01/30/17 at 06:00; Stop 01/30/17 at 06:29; Status DC Cefazolin Sodium/ Dextrose 50 ml @ 100 mls/hr 1X PREOP ONCE IV ; Start at 06:00; Stop 01/30/17 at 09:48; Status DC Ondansetron HCl (Zofran) 4 mg PRN Q6HRS PRN IV NAUSEA/VOMITING; Start at 07:00; Stop 02/01/17 at 06:59 Fentanyl Citrate (Fentanyl 2ml Vial) 25 mcg PRN Q5MIN PRN IV MILD PAIN; Start 01/31/17 at 07:00; Stop 02/01/17 at 06:59 Fentanyl Citrate (Fentanyl 2ml Vial) 50 mcg PRN Q5MIN PRN IV MODERATE PAIN; Start 01/31/17 at 07:00; Stop 02/01/17 at 06:59 Morphine Sulfate 1 mg PRN Q10MIN PRN IV SEVERE PAIN; Start 01/31/17 at 07:00; Stop 02/01/17 at 06:59 Ringer's Solution 1,000 ml @ 30 mls/hr Q24H IV ; Start 01/31/17 at 07:00; Stop 01/31/17 at 18:59 Lidocaine HCl (Xylocaine-Mpf 1% Vial) 2 ml PRN 1X PRN ID IV START; Start 01/31 at 07:00; Stop 02/01/17 at 06:59 Hydromorphone HCl (Dilaudid) 0.5 mg PRN Q10MIN PRN IV SEV PAIN, Second choice; Start 01/31/17 at 07:00; Stop 02/01/17 at 06:59 Prochlorperazine Edisylate (Compazine) 5 mg PACU PRN PRN IV NAUSEA, MRX1; Start 01/31/17 at 07:00; Stop 02/01/17 at 06:59 Active Scripts Active Reported Gemfibrozil 600 Mg Tablet 1 Tab PO DAILY Xigduo Xr 5 mg-500 mg Tablet (Dapagliflozin/Metformin HCl) 1 Each Tab.bp.24h 1 Each PO BID [place] 3 Fish Oil Softgel ([place]-3 Fatty Acids/Fish Oil) 1 Each Capsule. 1 Each PO DAILY Pravastatin Sodium 40 Mg Tablet 40 Mg PO DAILY Lisinopril 10 Mg Tablet 10 Mg PO DAILY Vitals/I & O Vital Sign - Last 24 Hours 01/29/17 01/29/17 01/29/17 01/29/17 19:20 20:00 20:54 23:52 Temp 98.2 97.3 98.2 97.3 Pulse 85 85 60 Resp 18 16 B/P (MAP) 112/67 (82) 112/67 93/57 (69) Pulse Ox 96 97 O2 Delivery Room Air Room Air Room Air O2 Flow Rate 2.0 01/30/17 01/30/17 01/30/17 01/30/17 03:21 07:00 08:00 08:59 Temp 97.9 98.4 97.9 98.4 Pulse 59 64 64 Resp 17 B/P (MAP) 96/60 (72) 102/67 (79) 102/67 Pulse Ox 98 98 O2 Delivery Room Air Room Air Room Air 01/30/17 01/30/17 10:51 14:58 Temp 98.4 98.5 98.4 98.5 Pulse 72 76 Resp 16 16 B/P (MAP) 115/75 (88) 123/69 (87) Pulse Ox 97 98 O2 Delivery Room Air Room Air ASIF BOWDEN MD Jan 30, 2017 17:33
[2017-01-30 19:07] VITALS: BP 106/74
[2017-01-30] MEDS: ATORVASTATIN CALCIUM 10 MG TABLET. PO SCH (21:38)
[2017-01-30 22:43] VITALS: BP 116/81
[2017-01-31] VITALS (17 sets, daily range): BP systolic 90–144; BP diastolic 55–81
--- NOTE | 2017-01-31 06:19 | EKG ---
[facility] [address] [place] [address] Test Date: 2017-01-31 Test Time: 06:16:04 Pat Name: YANCI RODRIGUEZ Department: Room: 211 1 Gender: M Institutional Commodity Analyst: JAROD : 1965 Requested By: SB MOMIN Order Number: [id number] Reading MD: Alvin Flynn MD Measurements Intervals [place] Rate: 72 P: 31 [place]: 166 QRS: 28 QRSD: 100 T: 8 QT: 388 QTc: 431 Interpretive Statements SINUS RHYTHM Electronically Signed On 01-31-2017 8:27:53 SUPERVISOR GLUING by Alvin Flynn MD
[2017-01-31] MEDS ORDERED: HEPARIN 30,000 UNIT/30 ML VIAL. ONE ×2 (06:36→07:29)
[2017-01-31] MEDS ORDERED: ROCURONIUM 100 MG/10 ML VIAL. ONE ×3 (06:37→11:23)
[2017-01-31] MEDS ORDERED: NITROGLYCERIN PREMIX 250 ML IV ONE (06:39)
[2017-01-31] MEDS ORDERED: AMINOCAPROIC ACID 5,000 MG/20 ML VIAL. IV ONE (06:41)
[2017-01-31] MEDS ORDERED: PHENYLEPHRINE 10 MG/ML VIAL. ONE (06:41)
[2017-01-31] MEDS ORDERED: ETOMIDATE 20 MG/10 ML VIAL. IV ONE (06:41)
[2017-01-31] MEDS ORDERED: LIDOCAINE 2% PF Vial for OR 5 ML VIAL. ONE (06:41)
[2017-01-31] MEDS ORDERED: SUFentanil 100 MCG/2 ML AMPUL. ONE ×4 (06:42→12:48)
[2017-01-31] MEDS ORDERED: MIDAZOLAM HCL/PF 2 MG/2 ML VIAL. ONE (06:43)
[2017-01-31] MEDS ORDERED: LIDOCAINE 1% PF 2 ML VIAL. ID PRN (07:00)
[2017-01-31] MEDS ORDERED: ONDANSETRON PF 4 MG/2 ML VIAL. IV PRN (07:00)
[2017-01-31] MEDS ORDERED: MORPHINE SULFATE 2 MG/ML DISP.SYRIN. IV PRN (07:00)
[2017-01-31] MEDS ORDERED: PROCHLORPERAZINE 10 MG/2 ML VIAL. IV PRN ×2 (07:00→15:00)
[2017-01-31] MEDS ORDERED: HYDROmorphone 2 MG/ML VIAL IV PRN (07:00)
[2017-01-31] MEDS ORDERED: fentaNYL PF VIAL 100 MCG/2 ML VIAL IV PRN ×2 (07:00)
[2017-01-31] MEDS ORDERED: IV RINGERS,LACTATED 1000ML 1,000 ML IV SCH (07:00)
[2017-01-31] MEDS ORDERED: 0.9 % SODIUM CHLORIDE 50 ML VIAL. IJ ONE (07:10)
[2017-01-31] MEDS ORDERED: ASPIRIN 300 MG SUPP.RECT ONE (07:10)
[2017-01-31] MEDS ORDERED: PAPAVERINE 60 MG/2 ML VIAL FOR OR ONLY. ONE (07:10)
[2017-01-31] MEDS ORDERED: VANCOMYCIN 10GM VIAL for OR. ONE (07:10)
[2017-01-31] MEDS ORDERED: SURGICEL HEMOSTAT 4X8 EACH. ONE (07:10)
[2017-01-31] MEDS ORDERED: ALBUMIN HUMAN 25% 200 ML IV ONE (07:27)
[2017-01-31] MEDS ORDERED: MAGNESIUM SULFATE 5 GM/10 ML VIAL. ONE (07:28)
[2017-01-31] MEDS ORDERED: MANNITOL 25% 12.5 G/50 ML VIAL FOR OR. ONE ×2 (07:28→13:40)
[2017-01-31] MEDS ORDERED: CALCIUM CHLORIDE 1,000 MG/10 ML DISP.SYRIN IV ONE (07:28)
[2017-01-31] MEDS ORDERED: HEPARIN 20,000 UNIT in IV RINGERS,LACTATED 1000ML 1,000 ML IRR ONE (08:00)
[2017-01-31] MEDS: INSULIN ASPART 300 UNITS/3 ML INSULN.PEN SQ SCH ×3 (08:00→17:00)
[2017-01-31] MEDS ORDERED: POTASSIUM CHLORIDE 15 MEQ, SODIUM BICARBONATE VIAL 12.5 MEQ in IV ELECTROLYTE-S (PH 7.4... IRR ONE (08:00)
[2017-01-31] MEDS ORDERED: ALBUMIN HUMAN 5% 1,000 ML IV ONE (08:00)
[2017-01-31] MEDS ORDERED: POTASSIUM CHLORIDE 70 MEQ, SODIUM BICARBONATE VIAL 12.5 MEQ, LIDOCAINE 2% 24 ML in IV E... IRR ONE (08:00)
[2017-01-31] MEDS ORDERED: HEPARIN for IV BOLUS 10,000 UNIT/10 ML VIAL. ONE (08:28)
[2017-01-31] MEDS ORDERED: HEPARIN PRESERVATIVE FREE 800 UNIT, NITROGLYCERIN 4 MG, VERAPAMIL 8 MG, SODIUM BICARBON... IRR ONE ×5 (08:30)
[2017-01-31] MEDS: OMEGA-3 FATTY ACIDS/FISH OIL 1,000 MG CAPSULE. PO SCH (09:00)
[2017-01-31] MEDS: METOPROLOL TART IMMED RELEASE 25 MG TABLET. PO SCH ×4 (09:00→21:00)
[2017-01-31] MEDS: GEMFIBROZIL 600 MG TABLET. PO SCH (09:00)
[2017-01-31] MEDS ORDERED: ceFAZolin 1GM IVPB FOR OMNI 100 ML IV ONE (10:06)
[2017-01-31] MEDS ORDERED: INSULIN REGULAR VIAL 150 UNIT in 0.9 % SODIUM CHLORIDE 150ML 150 ML IV ONE (10:15)
[2017-01-31] MEDS ORDERED: NOREPINEPHRIN PREMIX 250 ML IV ONE (10:15)
[2017-01-31] MEDS ORDERED: MIDAZOLAM HCL/PF 5 MG/5 ML VIAL. ONE ×2 (11:23→11:51)
[2017-01-31] MEDS ORDERED: ROCURONIUM 50 MG/5 ML VIAL. ONE (13:23)
[2017-01-31 13:52] LABS: HEMATOCRIT 31.4 % (39.0-53.0); HEMOGLOBIN 10.9 g/dL (13.0-17.5); WHITE BLOOD COUNT 4.9 x10^3/uL (4.0-11.0)
[2017-01-31 14:00] LABS: INR 1.7 (0.8-1.1); PROTHROMBIN TIME PATIENT 18.9 SEC (11.7-14.0)
--- NOTE | 2017-01-31 14:28 | PDOC ---
BRIEF OPERATIVE NOTE Date: Jan 31, 2017 Pre-Op Diagnosis Unstable angina Three vessel coronary artery disease Hypertension Hyperlipidemia Post-Op Diagnosis Unstable angina Three vessel coronary artery disease Hypertension Hyperlipidemia Procedure Performed CABG x 4 (AMAYA to LAD, radial to D1, SVG to OM, SVG to RPDA) Left radial artery harvest Left endoscopic greater saphenous vein harvest Surgeon Sb Momin MD Freight Unloader ANDRÉS Wang Anesthesiologist Jeremi Lawson Anesthesia Type: General Blood Loss Cellsaver IV Fluid Crystalloid: 2600 mls Albumin: 500 mls Cellsaver: 1000 mls Urine Output 700 mls Specimens Obtained None Findings Good 2mm LAD, D1 targets 1.5mm RPDA and OM targets (distal to stent) Excellent quality and flow AMAYA Good quality left radial and left GSV conduits Complications None Operative Note Additional remarks: CPB time: 136 min x clamp time: 110 min SB MOMIN MD Jan 31, 2017 14:28
[2017-01-31] MEDS ORDERED: CLEVIDIPINE BUTYRATE 100 ML IV PRN (14:30)
--- NOTE | 2017-01-31 14:36 | PDOC4 ---
Operative Note Operative Note Date Jan 31, 2017 Preoperative diagnosis Unstable angina Three vessel coronary artery disease S/p PCI to RCA and OM Hypertension Hyperlipidemia Postoperative diagnosis Unstable angina Three vessel coronary artery disease S/p PCI to RCA and OM Hypertension Hyperlipidemia Procedure CABG x 4 (AMAYA to LAD, radial to D1, SVG to OM, SVG to RPDA) Left radial artery harvest Left endoscopic greater saphenous vein harvest Surgeon Edel Momin MD Provisioning Specialist ANDRÉS Wang Anesthesiologist Jeremi Moy. Anesthesia General Blood loss Cellsaver IV fluids Crystalloid: 2600 mls Albumin: 500 mls Cellsaver: 1000 mls Urine output 700 mls Specimens obtained None Findings Good 2mm LAD, D1 targets 1.5mm RPDA and OM targets (distal to stent) Excellent quality and flow AMAYA Good quality left radial and left GSV conduits Complications None Additional remarks CPB time: 136 min x clamp time: 110 min Indication The patient is a 51-year-old male, with a history of diabetes and hyperlipidemia , and known ischemic heart disease, status post PCI to the RCA and obtuse marginal proximally 10 years ago, who presented with a long-standing history of angina on exertion. He also reports shortness of breath. He had a stress test which was positive. He underwent coronary angiography which demonstrated a 90% proximal LAD stenosis, an occluded mid left circumflex with an occluded OM stent , ostial disease in a relatively large first diagonal, an occluded RCA stent with a potentially bypassable RPDA. LV function was preserved on LV gram. A CABG was indicated. The risks, benefits and limitations of the procedure were explained to the patient who agreed to proceed. Informed consent was obtained. Operation After appropriate identification, the patient was brought to the operating room and placed supine on the operating table. Anesthesia was induced and the airway was secured with an endotracheal tube. A right IJ [place]-Rocky catheter and a right radial arterial line were placed. Antibiotics were delivered and the patient was preped and draped in the usual standard surgical sterile fashion. A timeout was then performed. We initially proceeded with harvesting the left radial artery with incision distal to the antecubital fossa and proximal to the wrist. The radial artery was harvested with the Harmonic. The incision was closed using 2-0 Vicryl. Fascia, 3-0 Vicryl for subcutaneous tissue and 4-0 Monocryl for the epidermis. A median sternotomy was then performed and the internal mammary artery was harvested, which was of good size and with excellent flow. Simultaneously the left greater saphenous vein was harvested endoscopically, which was of good quality and caliber. The pericardium was incised. The patient was heparinized. Cardiopulmonary bypass was established through the ascending aorta and the right atrium. The patient was cooled to 34 . Myocardial protection was achieved with antegrade blood cardioplegia. The cross-clamp was applied and diastolic arrest was achieved. Intermittent dosages of cardioplegia were given. Grafts: Saphenous vein graft to right posterior descending coronary artery, end to side anastomosis with 7-0 Prolene. 2 mm vessel. Saphenous vein graft to obtuse marginal coronary artery, end to side anastomosis with 7-0 Prolene. Calcified, 1.5 mm vessel. Left radial artery to diagonal 1 coronary artery, end to side anastomosis with 7 -0 Prolene. 2 mm vessel Left internal mammary artery to left anterior descending, end to side anastomosis with 7-0 Prolene. 2 mm vessel Three proximal anastomosis were performed using a 6-0 Prolene running suture. The cross-clamp was removed. The heart was allowed to rewarm and reperfuse. The grafts were de-aired. The patient resumed normal sinus rhythm and was from cardiopulmonary bypass without pharmacologic support. Heparin was reversed with protamine. Atrial and ventricular pacing wires were placed. Hemostasis was confirmed. An angled 32 Georg[place] chest tube was placed in the left pleural space, a 32Fr angled in the posterior pericardium and a 32 straight in the anterior pericardium. The sternotomy was closed with seven stainless steel wires. The incision was closed with a layer of 0 Vicryl, followed by 2-0 Vicryl and then 4-0 Monocryl for the epidermis. Sterile dressings were applied. The total cardiopulmonary bypass time was 136 minutes and the cross-clamp time was 110 minutes. The instrument, sponge and needle counts were correct. The patient was then transferred to the ICU in critical. EDEL MOMIN MD Jan 31, 2017 14:36
[2017-01-31 14:42] LABS: ART BE ISTAT -1 mmol/L (0-3); ART GLUC ISTAT 140 mg/dL (70-99); ART HCO3 ISTAT 23 mmol/L (21-28); ART HCT ISTAT 38 % (37-52); ART HGB ISTAT 12.9 g/dL (14-18); ART ION CA ISTAT 1.15 mmol/L (1.13-1.32); ART K ISTAT 3.5 mmol/L (3.5-5.0); ART NA ISTAT 139 mmol/L (135-145); ART PCO2 ISTAT 34 mmHg (35-45); ART PH ISTAT 7.43 (7.35-7.45); ART PO2 ISTAT 204 mmHg (75-100); ART SAT O2 SAT 100 % (95-99); ART TCO2 ISTAT 24 mmol/L (21-32); TOSPEC ART
[2017-01-31 14:42] LABS: ART BE ISTAT 0 mmol/L (0-3); ART GLUC ISTAT 142 mg/dL (70-99); ART HCO3 ISTAT 23 mmol/L (21-28); ART HCT ISTAT 41 % (37-52); ART HGB ISTAT 13.9 g/dL (14-18); ART ION CA ISTAT 1.12 mmol/L (1.13-1.32); ART K ISTAT 3.9 mmol/L (3.5-5.0); ART NA ISTAT 139 mmol/L (135-145); ART PCO2 ISTAT 31 mmHg (35-45); ART PH ISTAT 7.48 (7.35-7.45); ART PO2 ISTAT 220 mmHg (75-100); ART SAT O2 SAT 100 % (95-99); ART TCO2 ISTAT 24 mmol/L (21-32); TOSPEC ART
[2017-01-31 14:43] LABS: ART BE ISTAT -1 mmol/L (0-3); ART GLUC ISTAT 135 mg/dL (70-99); ART HCO3 ISTAT 24 mmol/L (21-28); ART HCT ISTAT 33 % (37-52); ART HGB ISTAT 11.2 g/dL (14-18); ART ION CA ISTAT 1.12 mmol/L (1.13-1.32); ART NA ISTAT 140 mmol/L (135-145); ART PCO2 ISTAT 40 mmHg (35-45); ART PH ISTAT 7.38 (7.35-7.45); ART PO2 ISTAT 262 mmHg (75-100); ART SAT O2 SAT 100 % (95-99); ART TCO2 ISTAT 25 mmol/L (21-32); TOSPEC ART
[2017-01-31 14:43] LABS: ART BE ISTAT 0 mmol/L (0-3); ART GLUC ISTAT 104 mg/dL (70-99); ART HCO3 ISTAT 24 mmol/L (21-28); ART HCT ISTAT 34 % (37-52); ART HGB ISTAT 11.6 g/dL (14-18); ART K ISTAT 3.7 mmol/L (3.5-5.0); ART NA ISTAT 141 mmol/L (135-145); ART PCO2 ISTAT 33 mmHg (35-45); ART PH ISTAT 7.46 (7.35-7.45); ART PO2 ISTAT 356 mmHg (75-100); ART SAT O2 SAT 100 % (95-99); ART TCO2 ISTAT 24 mmol/L (21-32); TOSPEC ART
[2017-01-31 14:43] LABS: ART BE ISTAT 4 mmol/L (0-3); ART GLUC ISTAT 113 mg/dL (70-99); ART HCO3 ISTAT 28 mmol/L (21-28); ART HCT ISTAT 30 % (37-52); ART HGB ISTAT 10.2 g/dL (14-18); ART ION CA ISTAT 1.51 mmol/L (1.13-1.32); ART K ISTAT 3.7 mmol/L (3.5-5.0); ART NA ISTAT 140 mmol/L (135-145); ART PCO2 ISTAT 36 mmHg (35-45); ART PO2 ISTAT 427 mmHg (75-100); ART SAT O2 SAT 100 % (95-99); ART TCO2 ISTAT 29 mmol/L (21-32); TOSPEC ART
[2017-01-31 14:43] LABS: ART BE ISTAT 0 mmol/L (0-3); ART GLUC ISTAT 134 mg/dL (70-99); ART HCO3 ISTAT 24 mmol/L (21-28); ART HCT ISTAT 34 % (37-52); ART HGB ISTAT 11.6 g/dL (14-18); ART ION CA ISTAT 1.12 mmol/L (1.13-1.32); ART K ISTAT 3.8 mmol/L (3.5-5.0); ART NA ISTAT 140 mmol/L (135-145); ART PCO2 ISTAT 36 mmHg (35-45); ART PH ISTAT 7.43 (7.35-7.45); ART PO2 ISTAT 225 mmHg (75-100); ART SAT O2 SAT 100 % (95-99); ART TCO2 ISTAT 25 mmol/L (21-32); TOSPEC ART
[2017-01-31 14:43] LABS: ART BE ISTAT 1 mmol/L (0-3); ART GLUC ISTAT 130 mg/dL (70-99); ART HCO3 ISTAT 26 mmol/L (21-28); ART HCT ISTAT 34 % (37-52); ART HGB ISTAT 11.6 g/dL (14-18); ART ION CA ISTAT 1.13 mmol/L (1.13-1.32); ART K ISTAT 3.9 mmol/L (3.5-5.0); ART NA ISTAT 140 mmol/L (135-145); ART PCO2 ISTAT 40 mmHg (35-45); ART PH ISTAT 7.42 (7.35-7.45); ART PO2 ISTAT 246 mmHg (75-100); ART SAT O2 SAT 100 % (95-99); ART TCO2 ISTAT 27 mmol/L (21-32); TOSPEC ART
[2017-01-31 14:43] LABS: ART BE ISTAT -1 mmol/L (0-3); ART GLUC ISTAT 132 mg/dL (70-99); ART HCO3 ISTAT 23 mmol/L (21-28); ART HCT ISTAT 34 % (37-52); ART HGB ISTAT 11.6 g/dL (14-18); ART ION CA ISTAT 1.03 mmol/L (1.13-1.32); ART K ISTAT 4.7 mmol/L (3.5-5.0); ART NA ISTAT 138 mmol/L (135-145); ART PCO2 ISTAT 33 mmHg (35-45); ART PH ISTAT 7.44 (7.35-7.45); ART PO2 ISTAT 275 mmHg (75-100); ART SAT O2 SAT 100 % (95-99); ART TCO2 ISTAT 24 mmol/L (21-32); TOSPEC ART
[2017-01-31] MEDS ORDERED: AMIODARONE 150 MG in IV DEXTROSE 5% 100 ML IV STA (14:51)
[2017-01-31] MEDS: IV RINGERS,LACTATED 1000ML 1,000 ML IV SCH (14:51)
--- NOTE | 2017-01-31 14:53 | RAD ---
Portable chest, 01/31/2017: History: Postop evaluation Comparison is made to a study from 01/30/2017. There as been an interval median sternotomy. The ET tube tip lies well above the sandra. A right jugular [place]-Rocky catheter extends into the proximal right main pulmonary artery region. An NG tube extends into the stomach. At least 2 mediastinal drains and a left chest tube are in place. An additional linear radiopacity overlies the right atrium of uncertain significance. Clinical correlation is suggested. The heart size and pulmonary vascularity are normal. There is mild streaky atelectasis/infiltrate in the left base. The right lung is clear. There is a tiny left apical pneumothorax. IMPRESSION: 1. Multiple tubes and catheters have been placed as described above. 2. Tiny left apical pneumothorax. 3. Mild left basilar atelectasis/infiltrate.
[2017-01-31] MEDS ORDERED: 0.9 % SODIUM CHLORIDE 10 ML DISP.SYRIN. IV PRN (15:00)
[2017-01-31] MEDS ORDERED: MAGNESIUM SULFATE 1GM 100 ML IV PRN (15:00)
[2017-01-31] MEDS ORDERED: oxyCODONE/APAP 5/325 1 TAB TABLET PO PRN (15:00)
[2017-01-31] MEDS ORDERED: ALBUTEROL SULFATE 2.5 MG/3 ML NEBU. NEB PRN (15:00)
[2017-01-31] MEDS ORDERED: ACETAMINOPHEN 325 MG TABLET. PO PRN (15:00)
[2017-01-31] MEDS ORDERED: KCL PER PROTOCOL MC PRN (15:00)
[2017-01-31] MEDS ORDERED: PROPOFOL 100 ML IV PRN (15:00)
[2017-01-31] MEDS ORDERED: ACETAMINOPHEN 650 MG SUPP.RECT. PR PRN (15:00)
[2017-01-31] MEDS ORDERED: ELECTROLYTE (ICU) PROTOCOL. MC PRN (15:00)
[2017-01-31] MEDS ORDERED: BISACODYL 10 MG SUPP.RECT. PR PRN (15:00)
[2017-01-31] MEDS ORDERED: DEXTROSE 50% 25 GM / 50ML DISP.SYRIN. IV PRN (15:00)
[2017-01-31] MEDS ORDERED: MEPERIDINE PF 25 MG/ML VIAL. IV PRN (15:00)
[2017-01-31] MEDS ORDERED: AMIODARONE 900 MG in IV DEXTROSE 5% 500 ML IV PRN (15:00)
[2017-01-31] MEDS ORDERED: INSULIN REGULAR VIAL 150 UNIT in 0.9 % SODIUM CHLORIDE 150ML 150 ML IV PRN (15:00)
[2017-01-31] MEDS ORDERED: MORPHINE SULFATE 10 MG/ML VIAL. ONE ×2 (15:00→15:09)
[2017-01-31] MEDS ORDERED: MORPHINE SULFATE 4 MG/ML DISP.SYRIN. IV PRN (15:15)
[2017-01-31] MEDS: ALBUMIN HUMAN 5% 250 ML IV PRN ×2 (15:25→19:15)
--- NOTE | 2017-01-31 15:29 | EKG ---
[facility] [address] [place] [address] Test Date: 2017-01-31 Test Time: 15:25:34 Pat Name: YANCI RODRIGUEZ Department: Room: 112 1 Gender: M Chemical Engraver: JAROD : 1965 Requested By: CHENG LEIJA Order Number: [id number] Reading MD: Steven Rich Measurements Intervals [place] Rate: 79 P: 44 MS: 174 QRS: 77 QRSD: 96 T: 30 QT: 382 QTc: 439 Interpretive Statements SINUS RHYTHM NORMAL ECG RI6.01 Compared to ECG 01/31/2017 06:16:04 No significant changes Electronically Signed On 01-31-2017 16:13:26 BUTTER PRODUCTION SUPERVISOR by Steven Rich
[2017-01-31 15:33] LABS: BASE EXCESS COOX -3 mmol/L (-3-3); CARBON MONOXIDE 0.3 % (0.0-1.9); HCO3 COOX 23 mmol/L (21-28); METHEMOGLOBIN 0.7 % (0.0-1.9); OXYHEMOGLOBIN 98.2 %; PCO2 COOX 44 mmHg (35-46); PH COOX 7.33 (7.35-7.45); PO2 COOX 291 mmHg (75-108); SAT O2 COOX 99 % (92-99); TOTAL HEMOGLOBIN 14.2 g/dL
[2017-01-31 15:34] LABS: FIO2 COOX 80
[2017-01-31 15:46] LABS: HEMATOCRIT 40.2 % (39.0-53.0); HEMOGLOBIN 13.7 g/dL (13.0-17.5); RED BLOOD COUNT 4.61 x10^6/uL (4.30-5.70); RED CELL DISTRIBUTION WIDTH 13.6 % (11.5-14.5); WHITE BLOOD COUNT 7.1 x10^3/uL (4.0-11.0)
[2017-01-31 15:59] LABS: CALCIUM 9.4 mg/dL (8.5-10.1); CREATININE 0.8 mg/dL (0.7-1.3); GFR 101.5; POTASSIUM 4.2 mmol/L (3.5-5.1)
[2017-01-31] MEDS: ASPIRIN ENTERIC COATED 325 MG TABLET.DR. PO SCH (16:00)
[2017-01-31] MEDS: MORPHINE SULFATE 4 MG/ML DISP.SYRIN. IV PRN ×3 (16:01→21:01)
[2017-01-31 16:05] LABS: INR 1.3 (0.8-1.1); PROTHROMBIN TIME PATIENT 15.8 SEC (11.7-14.0)
[2017-01-31] MEDS ORDERED: MAGNESIUM SULFATE 2GM 50 ML IV ONE (17:45)
[2017-01-31] MEDS ORDERED: POTASSIUM CHLORIDE 20MEQ 50 ML IV ONE ×2 (17:45→22:15)
[2017-01-31 17:49] LABS: HCO3 ABG 23 mmol/L (21-28); PCO2 ABG 52 mmHg (35-46); PH ABG 7.26 (7.35-7.45); PO2 ABG 101 mmHg (75-108); SAT O2 ABG 97 % (92-99)
[2017-01-31 17:51] LABS: FIO2 ABG 40
--- NOTE | 2017-01-31 18:55 | PDOC ---
PROGRESS NOTES Subjective Subjective Pt intubated post CABGS VS Stable Objective Objective Vital Signs Date Time Temp Pulse Resp B/P (MAP) Pulse Ox O2 Delivery O2 Flow Rate FiO2 01/31/17 18:00 98.9 84 16 96/59 (71) 99 Ventilator 98.9 01/31/17 16:01 2.0 Intake and Output 01/31/17 07:00 Intake Total 550 ml Balance 550 ml Intake Oral 550 ml # Voids 5 Physical Exam Physical Exam moving air well heart sounds with a rub Assessment Assessment Pt hemodynamically stable post CABGS. Agree with present plan Comment Review of Relevant I have reviewed the following items nguyễn (where applicable) has been applied. Labs Laboratory Tests Test 01/29/17 21:20 01/30/17 03:50 01/30/17 07:21 01/30/17 11:51 Glucose (Fingerstick) 156 mg/dL (70-99) 126 mg/dL (70-99) 157 mg/dL (70-99) White Blood Count 4.9 x10^3/uL (4.0-11.0) Red Blood Count 5.14 x10^6/uL (4.30-5.70) Hemoglobin 15.2 g/dL (13.0-17.5) Hematocrit 44.3 % (39.0-53.0) Mean Corpuscular Volume 86 fL (79-100) Mean Corpuscular Hemoglobin 30 pg (25-35) Mean Corpuscular Hemoglobin Concent 34 g/dL (31-37) Red Cell Distribution Width 14.1 % (11.5-14.5) Platelet Count 142 x10^3/uL (140-400) Neutrophils (%) (Auto) 45 % (31-73) Lymphocytes (%) (Auto) 46 % (24-48) Monocytes (%) (Auto) 8 % (0-9) Eosinophils (%) (Auto) 1 % (0-3) Basophils (%) (Auto) 1 % (0-3) Neutrophils # (Auto) 2.2 x10^3uL (1.8-7.7) Lymphocytes # (Auto) 2.3 x10^3/uL (1.0-4.8) Monocytes # (Auto) 0.4 x10^3/uL (0.0-1.1) Eosinophils # (Auto) 0.0 x10^3/uL (0.0-0.7) Basophils # (Auto) 0.0 x10^3/uL (0.0-0.2) Prothrombin Time 13.1 SEC (11.7-14.0) Prothromb Time International Ratio 1.1 (0.8-1.1) Activated Partial Thromboplast Time 33 SEC (24-38) Sodium Level 138 mmol/L (136-145) Potassium Level 3.4 mmol/L (3.5-5.1) Chloride Level 102 mmol/L (98-107) Carbon Dioxide Level 28 mmol/L (21-32) Anion Gap 8 (6-14) Blood Urea Nitrogen 15 mg/dL (8-26) Creatinine 0.7 mg/dL (0.7-1.3) Estimated GFR (Cockcroft-Gault) 118.4 BUN/Creatinine Ratio 21 (6-20) Glucose Level 107 mg/dL (70-99) Calcium Level 8.8 mg/dL (8.5-10.1) Total Bilirubin 0.6 mg/dL (0.2-1.0) Direct Bilirubin 0.1 mg/dL (0.0-0.2) Aspartate Amino Transf (AST/SGOT) 18 U/L (15-37) Alanine Aminotransferase (ALT/SGPT) 25 U/L (16-63) Alkaline Phosphatase 58 U/L (46-116) Total Protein 7.5 g/dL (6.4-8.2) Albumin 3.8 g/dL (3.4-5.0) Albumin/Globulin Ratio 1.0 (1.0-1.7) Test 01/30/17 16:30 01/30/17 20:32 01/31/17 05:14 01/31/17 08:23 Glucose (Fingerstick) 132 mg/dL (70-99) 171 mg/dL (70-99) 113 mg/dL (70-99) Bedside Hemoglobin (Calculated) 13.9 g/dL (14-18) Bedside Hematocrit 41 % (37-52) Bedside Arterial pH 7.48 (7.35-7.45) Bedside Arterial pCO2 31 mmHg (35-45) Bedside Arterial pO2 220 mmHg (75-100) Bedside Arterial HCO3 23 mmol/L (21-28) Bedside Arterial Total CO2 24 mmol/L (21-32) Arterial Bld O2 Saturation (Measur) 100 % (95-99) Bedside Arterial Blood Base Excess 0 mmol/L (0-3) Bedside FiO2 100.0 Bedside Sodium 139 mmol/L (135-145) Bedside Potassium 3.9 mmol/L (3.5-5.0) Glucose Level 142 mg/dL (70-99) Bedside Ionized Calcium (Juan) 1.12 mmol/L (1.13-1.32) Test 01/31/17 10:39 01/31/17 11:20 01/31/17 11:54 01/31/17 12:29 Bedside Hemoglobin (Calculated) 12.9 g/dL (14-18) 11.6 g/dL (14-18) 11.2 g/dL (14-18) 11.6 g/dL (14-18) Bedside Hematocrit 38 % (37-52) 34 % (37-52) 33 % (37-52) 34 % (37-52) Bedside Arterial pH 7.43 (7.35-7.45) 7.44 (7.35-7.45) 7.38 (7.35-7.45) 7.43 (7.35-7.45) Bedside Arterial pCO2 34 mmHg (35-45) 33 mmHg (35-45) 40 mmHg (35-45) 36 mmHg (35-45) Bedside Arterial pO2 204 mmHg (75-100) 275 mmHg (75-100) 262 mmHg (75-100) 225 mmHg (75-100) Bedside Arterial HCO3 23 mmol/L (21-28) 23 mmol/L (21-28) 24 mmol/L (21-28) 24 mmol/L (21-28) Bedside Arterial Total CO2 24 mmol/L (21-32) 24 mmol/L (21-32) 25 mmol/L (21-32) 25 mmol/L (21-32) Arterial Bld O2 Saturation (Measur) 100 % (95-99) 100 % (95-99) 100 % (95-99) 100 % (95-99) Bedside Arterial Blood Base Excess -1 mmol/L (0-3) -1 mmol/L (0-3) -1 mmol/L (0-3) 0 mmol/L (0-3) Bedside FiO2 100.0 70.0 70.0 70.0 Bedside Sodium 139 mmol/L (135-145) 138 mmol/L (135-145) 140 mmol/L (135-145) 140 mmol/L (135-145) Bedside Potassium 3.5 mmol/L (3.5-5.0) 4.7 mmol/L (3.5-5.0) 4.0 mmol/L (3.5-5.0) 3.8 mmol/L (3.5-5.0) Glucose Level 140 mg/dL (70-99) 132 mg/dL (70-99) 135 mg/dL (70-99) 134 mg/dL (70-99) Bedside Ionized Calcium (Juan) 1.15 mmol/L (1.13-1.32) 1.03 mmol/L (1.13-1.32) 1.12 mmol/L (1.13-1.32) 1.12 mmol/L (1.13-1.32) Test 01/31/17 13:00 01/31/17 13:43 01/31/17 13:49 01/31/17 14:26 Bedside Hemoglobin (Calculated) 11.6 g/dL (14-18) 10.2 g/dL (14-18) 11.6 g/dL (14-18) Bedside Hematocrit 34 % (37-52) 30 % (37-52) 34 % (37-52) Bedside Arterial pH 7.42 (7.35-7.45) 7.50 (7.35-7.45) 7.46 (7.35-7.45) Bedside Arterial pCO2 40 mmHg (35-45) 36 mmHg (35-45) 33 mmHg (35-45) Bedside Arterial pO2 246 mmHg (75-100) 427 mmHg (75-100) 356 mmHg (75-100) Bedside Arterial HCO3 26 mmol/L (21-28) 28 mmol/L (21-28) 24 mmol/L (21-28) Bedside Arterial Total CO2 27 mmol/L (21-32) 29 mmol/L (21-32) 24 mmol/L (21-32) Arterial Bld O2 Saturation (Measur) 100 % (95-99) 100 % (95-99) 100 % (95-99) Bedside Arterial Blood Base Excess 1 mmol/L (0-3) 4 mmol/L (0-3) 0 mmol/L (0-3) Bedside FiO2 75.0 100.0 100.0 Bedside Sodium 140 mmol/L (135-145) 140 mmol/L (135-145) 141 mmol/L (135-145) Bedside Potassium 3.9 mmol/L (3.5-5.0) 3.7 mmol/L (3.5-5.0) 3.7 mmol/L (3.5-5.0) Glucose Level 130 mg/dL (70-99) 113 mg/dL (70-99) 104 mg/dL (70-99) Bedside Ionized Calcium (Juan) 1.13 mmol/L (1.13-1.32) 1.51 mmol/L (1.13-1.32) 1.40 mmol/L (1.13-1.32) White Blood Count 4.9 x10^3/uL (4.0-11.0) Hemoglobin 10.9 g/dL (13.0-17.5) Hematocrit 31.4 % (39.0-53.0) Platelet Count 69 x10^3/uL (140-400) Prothrombin Time 18.9 SEC (11.7-14.0) Prothromb Time International Ratio 1.7 (0.8-1.1) Activated Partial Thromboplast Time 35 SEC (24-38) Fibrinogen 215 mg/dL (200-440) Test 01/31/17 14:51 01/31/17 15:21 01/31/17 15:30 01/31/17 17:30 O2 Saturation 99 % (92-99) 97 % (92-99) Arterial Blood pH 7.33 (7.35-7.45) 7.26 (7.35-7.45) Arterial Blood pCO2 at Patient Temp 44 mmHg (35-46) 52 mmHg (35-46) Arterial Blood pO2 at Patient Temp 291 mmHg (75-108) 101 mmHg (75-108) Arterial Blood HCO3 23 mmol/L (21-28) 23 mmol/L (21-28) Arterial Blood Base Excess -3 mmol/L (-3-3) -4 mmol/L (-3-3) Oxyhemoglobin 98.2 % Methemoglobin 0.7 % (0.0-1.9) Carbon Monoxide, Quantitative 0.3 % (0.0-1.9) FiO2 80 40 Glucose (Fingerstick) 108 mg/dL (70-99) White Blood Count 7.1 x10^3/uL (4.0-11.0) Red Blood Count 4.61 x10^6/uL (4.30-5.70) Hemoglobin 13.7 g/dL (13.0-17.5) Hematocrit 40.2 % (39.0-53.0) Mean Corpuscular Volume 87 fL (79-100) Mean Corpuscular Hemoglobin 30 pg (25-35) Mean Corpuscular Hemoglobin Concent 34 g/dL (31-37) Red Cell Distribution Width 13.6 % (11.5-14.5) Platelet Count 88 x10^3/uL (140-400) Prothrombin Time 15.8 SEC (11.7-14.0) Prothromb Time International Ratio 1.3 (0.8-1.1) Activated Partial Thromboplast Time 35 SEC (24-38) Sodium Level 141 mmol/L (136-145) Potassium Level 4.2 mmol/L (3.5-5.1) Chloride Level 108 mmol/L (98-107) Carbon Dioxide Level 26 mmol/L (21-32) Anion Gap 7 (6-14) Blood Urea Nitrogen 12 mg/dL (8-26) Creatinine 0.8 mg/dL (0.7-1.3) Estimated GFR (Cockcroft-Gault) 101.5 Glucose Level 106 mg/dL (70-99) Calcium Level 9.4 mg/dL (8.5-10.1) Magnesium Level 2.0 mg/dL (1.8-2.4) Laboratory Tests Test 01/30/17 20:32 01/31/17 05:14 01/31/17 08:23 01/31/17 10:39 Glucose (Fingerstick) 171 mg/dL (70-99) 113 mg/dL (70-99) Bedside Hemoglobin (Calculated) 13.9 g/dL (14-18) 12.9 g/dL (14-18) Bedside Hematocrit 41 % (37-52) 38 % (37-52) Bedside Arterial pH 7.48 (7.35-7.45) 7.43 (7.35-7.45) Bedside Arterial pCO2 31 mmHg (35-45) 34 mmHg (35-45) Bedside Arterial pO2 220 mmHg (75-100) 204 mmHg (75-100) Bedside Arterial HCO3 23 mmol/L (21-28) 23 mmol/L (21-28) Bedside Arterial Total CO2 24 mmol/L (21-32) 24 mmol/L (21-32) Arterial Bld O2 Saturation (Measur) 100 % (95-99) 100 % (95-99) Bedside Arterial Blood Base Excess 0 mmol/L (0-3) -1 mmol/L (0-3) Bedside FiO2 100.0 100.0 Bedside Sodium 139 mmol/L (135-145) 139 mmol/L (135-145) Bedside Potassium 3.9 mmol/L (3.5-5.0) 3.5 mmol/L (3.5-5.0) Glucose Level 142 mg/dL (70-99) 140 mg/dL (70-99) Bedside Ionized Calcium (Juan) 1.12 mmol/L (1.13-1.32) 1.15 mmol/L (1.13-1.32) Test 01/31/17 11:20 01/31/17 11:54 01/31/17 12:29 01/31/17 13:00 Bedside Hemoglobin (Calculated) 11.6 g/dL (14-18) 11.2 g/dL (14-18) 11.6 g/dL (14-18) 11.6 g/dL (14-18) Bedside Hematocrit 34 % (37-52) 33 % (37-52) 34 % (37-52) 34 % (37-52) Bedside Arterial pH 7.44 (7.35-7.45) 7.38 (7.35-7.45) 7.43 (7.35-7.45) 7.42 (7.35-7.45) Bedside Arterial pCO2 33 mmHg (35-45) 40 mmHg (35-45) 36 mmHg (35-45) 40 mmHg (35-45) Bedside Arterial pO2 275 mmHg (75-100) 262 mmHg (75-100) 225 mmHg (75-100) 246 mmHg (75-100) Bedside Arterial HCO3 23 mmol/L (21-28) 24 mmol/L (21-28) 24 mmol/L (21-28) 26 mmol/L (21-28) Bedside Arterial Total CO2 24 mmol/L (21-32) 25 mmol/L (21-32) 25 mmol/L (21-32) 27 mmol/L (21-32) Arterial Bld O2 Saturation (Measur) 100 % (95-99) 100 % (95-99) 100 % (95-99) 100 % (95-99) Bedside Arterial Blood Base Excess -1 mmol/L (0-3) -1 mmol/L (0-3) 0 mmol/L (0-3) 1 mmol/L (0-3) Bedside FiO2 70.0 70.0 70.0 75.0 Bedside Sodium 138 mmol/L (135-145) 140 mmol/L (135-145) 140 mmol/L (135-145) 140 mmol/L (135-145) Bedside Potassium 4.7 mmol/L (3.5-5.0) 4.0 mmol/L (3.5-5.0) 3.8 mmol/L (3.5-5.0) 3.9 mmol/L (3.5-5.0) Glucose Level 132 mg/dL (70-99) 135 mg/dL (70-99) 134 mg/dL (70-99) 130 mg/dL (70-99) Bedside Ionized Calcium (Juan) 1.03 mmol/L (1.13-1.32) 1.12 mmol/L (1.13-1.32) 1.12 mmol/L (1.13-1.32) 1.13 mmol/L (1.13-1.32) Test 01/31/17 13:43 01/31/17 13:49 01/31/17 14:26 01/31/17 14:51 Bedside Hemoglobin (Calculated) 10.2 g/dL (14-18) 11.6 g/dL (14-18) Bedside Hematocrit 30 % (37-52) 34 % (37-52) Bedside Arterial pH 7.50 (7.35-7.45) 7.46 (7.35-7.45) Bedside Arterial pCO2 36 mmHg (35-45) 33 mmHg (35-45) Bedside Arterial pO2 427 mmHg (75-100) 356 mmHg (75-100) Bedside Arterial HCO3 28 mmol/L (21-28) 24 mmol/L (21-28) Bedside Arterial Total CO2 29 mmol/L (21-32) 24 mmol/L (21-32) Arterial Bld O2 Saturation (Measur) 100 % (95-99) 100 % (95-99) Bedside Arterial Blood Base Excess 4 mmol/L (0-3) 0 mmol/L (0-3) Bedside FiO2 100.0 100.0 Bedside Sodium 140 mmol/L (135-145) 141 mmol/L (135-145) Bedside Potassium 3.7 mmol/L (3.5-5.0) 3.7 mmol/L (3.5-5.0) Glucose Level 113 mg/dL (70-99) 104 mg/dL (70-99) Bedside Ionized Calcium (Juan) 1.51 mmol/L (1.13-1.32) 1.40 mmol/L (1.13-1.32) White Blood Count 4.9 x10^3/uL (4.0-11.0) Hemoglobin 10.9 g/dL (13.0-17.5) Hematocrit 31.4 % (39.0-53.0) Platelet Count 69 x10^3/uL (140-400) Prothrombin Time 18.9 SEC (11.7-14.0) Prothromb Time International Ratio 1.7 (0.8-1.1) Activated Partial Thromboplast Time 35 SEC (24-38) Fibrinogen 215 mg/dL (200-440) O2 Saturation 99 % (92-99) Arterial Blood pH 7.33 (7.35-7.45) Arterial Blood pCO2 at Patient Temp 44 mmHg (35-46) Arterial Blood pO2 at Patient Temp 291 mmHg (75-108) Arterial Blood HCO3 23 mmol/L (21-28) Arterial Blood Base Excess -3 mmol/L (-3-3) Oxyhemoglobin 98.2 % Methemoglobin 0.7 % (0.0-1.9) Carbon Monoxide, Quantitative 0.3 % (0.0-1.9) FiO2 80 Test 01/31/17 15:21 01/31/17 15:30 01/31/17 17:30 Glucose (Fingerstick) 108 mg/dL (70-99) White Blood Count 7.1 x10^3/uL (4.0-11.0) Red Blood Count 4.61 x10^6/uL (4.30-5.70) Hemoglobin 13.7 g/dL (13.0-17.5) Hematocrit 40.2 % (39.0-53.0) Mean Corpuscular Volume 87 fL (79-100) Mean Corpuscular Hemoglobin 30 pg (25-35) Mean Corpuscular Hemoglobin Concent 34 g/dL (31-37) Red Cell Distribution Width 13.6 % (11.5-14.5) Platelet Count 88 x10^3/uL (140-400) Prothrombin Time 15.8 SEC (11.7-14.0) Prothromb Time International Ratio 1.3 (0.8-1.1) Activated Partial Thromboplast Time 35 SEC (24-38) Sodium Level 141 mmol/L (136-145) Potassium Level 4.2 mmol/L (3.5-5.1) Chloride Level 108 mmol/L (98-107) Carbon Dioxide Level 26 mmol/L (21-32) Anion Gap 7 (6-14) Blood Urea Nitrogen 12 mg/dL (8-26) Creatinine 0.8 mg/dL (0.7-1.3) Estimated GFR (Cockcroft-Gault) 101.5 Glucose Level 106 mg/dL (70-99) Calcium Level 9.4 mg/dL (8.5-10.1) Magnesium Level 2.0 mg/dL (1.8-2.4) O2 Saturation 97 % (92-99) Arterial Blood pH 7.26 (7.35-7.45) Arterial Blood pCO2 at Patient Temp 52 mmHg (35-46) Arterial Blood pO2 at Patient Temp 101 mmHg (75-108) Arterial Blood HCO3 23 mmol/L (21-28) Arterial Blood Base Excess -4 mmol/L (-3-3) FiO2 40 Medications Current Medications Heparin Sodium/ Sodium Chloride 500 ml @ As Directed STK-MED ONCE .ROUTE ; Start 01/29/17 at 09:21; Stop 01/29/17 at 09:22; Status DC Iohexol (Omnipaque 300 Mg/ml) 100 ml STK-MED ONCE .ROUTE ; Start 01/29/17 at 09 :22; Stop 01/29/17 at 09:23; Status DC Lidocaine HCl 20 ml STK-MED ONCE .ROUTE ; Start 01/29/17 at 09:22; Stop at 09:23; Status DC Fentanyl Citrate (Fentanyl 2ml Vial) 100 mcg STK-MED ONCE .ROUTE ; Start at 09:36; Stop 01/29/17 at 09:37; Status DC Midazolam HCl (Versed) 2 mg STK-MED ONCE .ROUTE ; Start 01/29/17 at 09:36; Stop 01/29/17 at 09:37; Status DC Heparin Sodium/ Sodium Chloride 1,000 unit 1X ONCE IART Last administered on 01/29/17 10:16; Start 01/29/17 at 10:15; Stop 01/29/17 at 10:16; Status DC Midazolam HCl (Versed) 2 mg 1X ONCE IV Last administered on 01/29/17 10:17; Start 01/29/17 at 10:15; Stop 01/29/17 at 10:16; Status DC Fentanyl Citrate (Fentanyl 2ml Vial) 100 mcg 1X ONCE IV Last administered on 01/29/17 10:17; Start 01/29/17 at 10:15; Stop 01/29/17 at 10:16; Status DC Iohexol (Omnipaque 300 Mg/ml) 100 ml 1X ONCE IART Last administered on 10:16; Start 01/29/17 at 10:15; Stop 01/29/17 at 10:16; Status DC Lidocaine HCl 17 ml 1X ONCE IJ Last administered on 01/29/17 10:16; Start 01/29/17 at 10:15; Stop 01/29/17 at 10:16; Status DC Sodium Chloride (Normal Saline Flush) 3 ml QSHIFT PRN IV AFTER MEDS AND BLOOD DRAWS; Start 01/29/17 at 10:15; Stop 01/30/17 at 10:14; Status DC Nitroglycerin (Nitrostat) 0.4 mg PRN Q5MIN PRN SL CHEST PAIN; Start 01/29/17 at 10:15; Stop 01/30/17 at 10:14; Status DC Gemfibrozil (Lopid) 600 mg DAILY PO Last administered on 01/30/17 08:59; Start 01/29/17 at 12:30 Fish Oil (Fish Oil) 1,000 mg DAILY PO Last administered on 01/30/17 08:59; Start 01/29/17 at 12:30 Atorvastatin Calcium (Lipitor) 10 mg QHS PO Last administered on 01/30/17 21: 38; Start 01/29/17 at 21:00 Insulin Aspart (NovoLOG) 0-5 UNITS TIDWMEALS SQ ; Start 01/29/17 at 12:30 Dextrose (Dextrose 50%-Water Syringe) 12.5 gm PRN Q15MIN PRN IV SEE COMMENTS; Start 01/29/17 at 11:45 Pneumococcal Polyvalent Vaccine (Do NOT chart on this placeholder) 1 each PRN 1X PRN MC SEE COMMENTS; Start 01/29/17 at 12:30; Status UNV Pneumococcal Polyvalent Vaccine (Pneumovax 23) 0.5 ml ONCE ONCE VAX IM ; Start 01/29/17 at 13:00; Stop 01/29/17 at 13:01; Status DC Lisinopril (Prinivil) 10 mg DAILY PO ; Start 01/29/17 at 15:30; Stop 01/29/17 at 18:09; Status DC Metoprolol Tartrate (Lopressor) 25 mg BID PO Last administered on 01/30/17 21 :38; Start 01/29/17 at 21:00 Zolpidem Tartrate (Ambien) 5 mg PRN QHS PRN PO INSOMNIA, MAY REPEAT IN 1HR; Start 01/29/17 at 18:15 Cefazolin Sodium/ Dextrose 50 ml @ 100 mls/hr 1X ONCE IV ; Start 01/30/17 at 06:00; Stop 01/30/17 at 06:29; Status DC Cefazolin Sodium/ Dextrose 50 ml @ 100 mls/hr 1X PREOP ONCE IV ; Start at 06:00; Stop 01/30/17 at 09:48; Status DC Ondansetron HCl (Zofran) 4 mg PRN Q6HRS PRN IV NAUSEA/VOMITING; Start at 07:00; Stop 02/01/17 at 06:59 Fentanyl Citrate (Fentanyl 2ml Vial) 25 mcg PRN Q5MIN PRN IV MILD PAIN; Start 01/31/17 at 07:00; Stop 02/01/17 at 06:59 Fentanyl Citrate (Fentanyl 2ml Vial) 50 mcg PRN Q5MIN PRN IV MODERATE PAIN; Start 01/31/17 at 07:00; Stop 02/01/17 at 06:59 Morphine Sulfate 1 mg PRN Q10MIN PRN IV SEVERE PAIN; Start 01/31/17 at 07:00; Stop 02/01/17 at 06:59 Ringer's Solution 1,000 ml @ 30 mls/hr Q24H IV Last administered on t 15:25; Start 01/31/17 at 07:00; Stop 01/31/17 at 18:59 Lidocaine HCl (Xylocaine-Mpf 1% Vial) 2 ml PRN 1X PRN ID IV START; Start 01/31 at 07:00; Stop 02/01/17 at 06:59 Hydromorphone HCl (Dilaudid) 0.5 mg PRN Q10MIN PRN IV SEV PAIN, Second choice; Start 01/31/17 at 07:00; Stop 02/01/17 at 06:59 Prochlorperazine Edisylate (Compazine) 5 mg PACU PRN PRN IV NAUSEA, MRX1; Start 01/31/17 at 07:00; Stop 02/01/17 at 06:59 Heparin Sodium (Porcine) 30,000 unit STK-MED ONCE .ROUTE ; Start 01/31/17 at 06 :36; Stop 01/31/17 at 06:37; Status DC Rocuronium [place] (Zemuron) 100 mg STK-MED ONCE .ROUTE ; Start 01/31/17 at 06: 37; Stop 01/31/17 at 06:38; Status DC Ephedrine Sulfate (Akovaz) 50 mg STK-MED ONCE .ROUTE ; Start 01/31/17 at 06:37 ; Stop 01/31/17 at 06:38; Status DC Nitroglycerin/ Dextrose 250 ml @ As Directed STK-MED ONCE IV ; Start 01/31/17 at 06:39; Stop 01/31/17 at 06:40; Status DC Aminocaproic Acid (Amicar) 5,000 mg STK-MED ONCE IV ; Start 01/31/17 at 06:41; Stop 01/31/17 at 06:42; Status DC Etomidate (Amidate) 20 mg STK-MED ONCE IV ; Start 01/31/17 at 06:41; Stop at 06:42; Status DC Lidocaine HCl (Lidocaine Pf 2% Vial) 5 ml STK-MED ONCE .ROUTE ; Start 01/31/17 at 06:41; Stop 01/31/17 at 06:42; Status DC Phenylephrine HCl (Ramy-Synephrine Inj) 10 mg STK-MED ONCE .ROUTE ; Start at 06:41; Stop 01/31/17 at 06:42; Status DC Sufentanil Citrate (Sufenta) 100 mcg STK-MED ONCE .ROUTE ; Start 01/31/17 at 06 :42; Stop 01/31/17 at 06:43; Status DC Midazolam HCl (Versed) 2 mg STK-MED ONCE .ROUTE ; Start 01/31/17 at 06:43; Stop 01/31/17 at 06:44; Status DC Vancomycin HCl (Vanco) 10 gm STK-MED ONCE .ROUTE Last administered on 08:19; Start 01/31/17 at 07:10; Stop 01/31/17 at 07:11; Status DC Cellulose 1 each STK-MED ONCE .ROUTE Last administered on 01/31/17 08:19; Start 01/31/17 at 07:10; Stop 01/31/17 at 07:11; Status DC Papaverine HCl 60 mg STK-MED ONCE .ROUTE Last administered on 01/31/17 08:19 ; Start 01/31/17 at 07:10; Stop 01/31/17 at 07:11; Status DC Aspirin (Aspirin) 300 mg STK-MED ONCE .ROUTE Last administered on 01/31/17 14 :45; Start 01/31/17 at 07:10; Stop 01/31/17 at 07:11; Status DC Sodium Chloride (Sodium Chloride) 50 ml STK-MED ONCE IJ Last administered on 08:19; Start 01/31/17 at 07:10; Stop 01/31/17 at 07:11; Status DC Cefazolin Sodium/ Dextrose 50 ml @ As Directed STK-MED ONCE IV ; Start at 07:20; Stop 01/31/17 at 07:21; Status DC Albumin Human 200 ml @ As Directed STK-MED ONCE IV ; Start 01/31/17 at 07:27; Stop 01/31/17 at 07:28; Status DC Mannitol (Mannitol) 12.5 g STK-MED ONCE .ROUTE ; Start 01/31/17 at 07:28; Stop 01/31/17 at 07:29; Status DC Magnesium Sulfate 5 gm STK-MED ONCE .ROUTE ; Start 01/31/17 at 07:28; Stop at 07:29; Status DC Calcium Chloride 1,000 mg STK-MED ONCE IV ; Start 01/31/17 at 07:28; Stop at 07:29; Status DC Heparin Sodium (Porcine) 30,000 unit STK-MED ONCE .ROUTE ; Start 01/31/17 at 07 :29; Stop 01/31/17 at 07:30; Status DC Potassium Chloride 70 meq/ Sodium Bicarbonate 12.5 meq/Lidocaine HCl 24 ml/ Parenteral Electrolytes 571.5 ml @ 571.5 mls/ hr 1X PERIOP ONCE IRR ; Start 01/31/17 at 08:00; Stop 01/31/17 at 08:59; Status DC Potassium Chloride 15 meq/ Sodium Bicarbonate 12.5 meq/Parenteral Electrolytes 520 ml @ 520 mls/hr 1X PERIOP ONCE IRR ; Start 01/31/17 at 08:00; Stop 01/31 at 08:59; Status DC Heparin Sodium (Porcine) 59813 unit/Ringer's Solution 1,020 ml @ 1,020 mls/hr 1X PERIOP ONCE IRR Last administered on 01/31/17 08:19; Start 01/31/17 at 08:00; Stop 01/31/17 at 08:59; Status DC Cefazolin Sodium 1 gm/Sodium Chloride 500 ml @ 500 mls/hr 1X PERIOP ONCE IRR Last administered on 01/31/17 08:19; Start 01/31/17 at 08:00; Stop 01/31/17 at 08:59; Status DC Albumin Human 1,000 ml @ As Directed STK-MED ONCE IV ; Start 01/31/17 at 08:00 ; Stop 01/31/17 at 08:03; Status DC Heparin Sodium (Porcine) 800 unit/ Nitroglycerin 4 mg/Verapamil HCl 8 mg/Sodium Bicarbonate 0.34 meq/Ringer's Solution 512.34 ml @ 512.34 mls/hr 1X PERIOP ONCE IRR Last administered on 01/31/17 08:19; Start 01/31/17 at 08:30; Stop 01/31/17 at 09:29; Status DC Sufentanil Citrate (Sufenta) 100 mcg STK-MED ONCE .ROUTE ; Start 01/31/17 at 08 :16; Stop 01/31/17 at 08:17; Status DC Heparin Sodium (Porcine) (Heparin Sodium) 10,000 unit STK-MED ONCE .ROUTE ; Start 01/31/17 at 08:28; Stop 01/31/17 at 08:29; Status DC Rocuronium [place] (Zemuron) 100 mg STK-MED ONCE .ROUTE ; Start 01/31/17 at 08: 48; Stop 01/31/17 at 08:49; Status DC Sufentanil Citrate (Sufenta) 100 mcg STK-MED ONCE .ROUTE ; Start 01/31/17 at 09 :45; Stop 01/31/17 at 09:46; Status DC Norepinephrine Bitartrate 250 ml @ 1.875 mls/ hr 1X ONCE IV ; Start 01/31/17 at 10:15; Stop 02/05/17 at 23:34 Insulin Human Regular 150 unit/ Sodium Chloride 151.5 ml @ 0 mls/hr 1X ONCE IV ; Start 01/31/17 at 10:15; Stop 01/31/17 at 10:16; Status DC Cefazolin Sodium 100 ml @ As Directed STK-MED ONCE IV ; Start 01/31/17 at 10: 06; Stop 01/31/17 at 10:07; Status DC Rocuronium [place] (Zemuron) 100 mg STK-MED ONCE .ROUTE ; Start 01/31/17 at 11: 23; Stop 01/31/17 at 11:24; Status DC Midazolam HCl (Versed) 5 mg STK-MED ONCE .ROUTE ; Start 01/31/17 at 11:23; Stop 01/31/17 at 11:24; Status DC Midazolam HCl (Versed) 5 mg STK-MED ONCE .ROUTE ; Start 01/31/17 at 11:51; Stop 01/31/17 at 11:52; Status DC Sufentanil Citrate (Sufenta) 100 mcg STK-MED ONCE .ROUTE ; Start 01/31/17 at 12 :48; Stop 01/31/17 at 12:49; Status DC Rocuronium [place] (Zemuron) 50 mg STK-MED ONCE .ROUTE ; Start 01/31/17 at 13: 23; Stop 01/31/17 at 13:24; Status DC Mannitol (Mannitol) 12.5 g STK-MED ONCE .ROUTE ; Start 01/31/17 at 13:40; Stop 01/31/17 at 13:41; Status DC Clevidipine 100 ml @ 0 mls/hr CONT PRN IV PER PROTOCOL Last administered on 15:57; Start 01/31/17 at 14:30 Sodium Chloride (Normal Saline Flush) 3 ml PRN Q12HR PRN IV AFTER MEDS AND BLOOD DRAWS; Start 01/31/17 at 15:00 Ringer's Solution 1,000 ml @ 30 mls/hr Q24H IV Last administered on 14:51; Start 01/31/17 at 14:51 Albumin Human 250 ml @ 60 mls/hr PRN Q4HRS PRN IV SEE I/O RECORD Last administered on 01/31/17 15:25; Start 01/31/17 at 15:00 Insulin Human Regular 150 unit/ Sodium Chloride 151.5 ml @ 0 mls/hr CONT PRN PRN IV SEE I/O RECORD; Start 01/31/17 at 15:00 Dextrose (Dextrose 50%-Water Syringe) 25 gm PRN Q15MIN PRN IV LOW BLOOD SUGAR; Start 01/31/17 at 15:00 Amiodarone HCl 150 mg/Dextrose 103 ml @ 200 mls/hr STAT STAT IV Last administered on 01/31/17 15:16; Start 01/31/17 at 14:51; Stop 01/31/17 at 15 :24; Status DC Amiodarone HCl 900 mg/Dextrose 518 ml @ 33.33 mls/ hr CONT PRN IV I/O Last administered on 01/31/17 15:16; Start 01/31/17 at 15:00 Info 1 ea CONT PRN PRN MC SEE COMMENTS; Start 01/31/17 at 15:00 Info 1 ea CONT PRN PRN MC SEE COMMENTS; Start 01/31/17 at 15:00 Magnesium Sulfate/ Dextrose 100 ml @ 100 mls/hr PRN DAILY PRN IV FOR MAG < 2.2 ; Start 01/31/17 at 15:00 Famotidine (Pepcid Vial) 20 mg BID IVP ; Start 01/31/17 at 21:00 Ondansetron HCl (Zofran) 4 mg PRN Q4HRS PRN IV NAUSEA/VOMITING; Start at 15:00 Prochlorperazine Edisylate (Compazine) 10 mg PRN Q6HRS PRN IV NAUSEA/VOMITING ( 2ND Choice); Start 01/31/17 at 15:00 Morphine Sulfate 2 mg PRN Q1HR PRN IV PAIN Last administered on 01/31/17t 16: 01; Start 01/31/17 at 15:00 Acetaminophen (Tylenol) 650 mg PRN Q4HRS PRN PO MILD PAIN / TEMP; Start at 15:00 Acetaminophen (Acetaminophen Supp) 650 mg PRN Q4HRS PRN MA MILD PAIN / TEMP; Start 01/31/17 at 15:00 Meperidine HCl (Demerol) 12.5 mg PRN Q15MIN PRN IV SHIVERING; Start 01/31/17 at 15:00; Stop 02/01/17 at 14:51 Propofol 100 ml @ 0 mls/hr CONT PRN PRN IV POSTOP SEDATION UNTIL EXTUBATE; Start 01/31/17 at 15:00 Bisacodyl (Dulcolax Supp) 10 mg PRN DAILY PRN MA NO BOWEL MOVEMENT; Start at 15:00 Aspirin (Ecotrin) 325 mg DAILYWBKFT PO ; Start 01/31/17 at 16:00 Albuterol Sulfate (Ventolin Neb Soln) 2.5 mg PRN Q4HRS PRN NEB SHORTNESS OF BREATH; Start 01/31/17 at 15:00 Metoprolol Tartrate (Lopressor) 25 mg BID PO ; Start 01/31/17 at 16:00 Nicardipine HCl 50 mg/Sodium Chloride 270 ml @ 0 mls/hr CONT PRN PRN IV PER PROTOCOL; Start 01/31/17 at 15:00 Oxycodone/ Acetaminophen (Percocet 5/325) 1 tab PRN Q4HRS PRN PO MILD PAIN; Start 01/31/17 at 15:00 Oxycodone/ Acetaminophen (Percocet 5/325) 2 tab PRN Q4HRS PRN PO MODERATE PAIN , SEVERE PAIN; Start 01/31/17 at 15:00 Cefazolin Sodium/ Dextrose 50 ml @ 100 mls/hr Q8H IV ; Start 01/31/17 at 22:00 ; Stop 02/02/17 at 06:29 Polyethylene Glycol (miraLAX PACKET) 17 gm QHS PO ; Start 02/01/17 at 21:00 Morphine Sulfate 1 mg PRN Q10MIN PRN IV PAIN; Start 01/31/17 at 15:15 Morphine Sulfate 10 mg STK-MED ONCE .ROUTE ; Start 01/31/17 at 15:09; Stop at 15:10; Status DC Magnesium Sulfate/ Dextrose 50 ml @ 25 mls/hr 1X ONCE IV Last administered on 01/31/17t 17:55; Start 01/31/17 at 17:45; Stop 01/31/17 at 19:44 Potassium Chloride 50 ml @ 50 mls/hr 1X ONCE IV Last administered on t 17:54; Start 01/31/17 at 17:45; Stop 01/31/17 at 18:44; Status DC Active Scripts Active Reported Gemfibrozil 600 Mg Tablet 1 Tab PO DAILY Xigduo Xr 5 mg-500 mg Tablet (Dapagliflozin/Metformin HCl) 1 Each Tab.bp.24h 1 Each PO BID Denniston 3 Fish Oil Softgel (Denniston-3 Fatty Acids/Fish Oil) 1 Each Capsule.dr 1 Each PO DAILY Pravastatin Sodium 40 Mg Tablet 40 Mg PO DAILY Lisinopril 10 Mg Tablet 10 Mg PO DAILY Vitals/I & O Vital Sign - Last 24 Hours 01/30/17 01/30/17 01/30/17 01/30/17 19:07 20:00 21:38 22:43 Temp 98.6 97.7 98.6 97.7 Pulse 78 78 72 Resp 16 16 B/P (MAP) 106/74 (85) 106/74 116/81 (93) Pulse Ox 96 95 O2 Delivery Room Air Room Air Room Air O2 Flow Rate 2.0 01/31/17 01/31/17 01/31/17 01/31/17 05:12 05:14 07:00 14:50 Temp 98.6 97.3 97.7 98.6 97.3 97.7 Pulse 70 67 71 76 Resp 16 20 12 B/P (MAP) 117/81 (93) 114/68 (83) 121/63 113/56 (75) Pulse Ox 100 98 100 O2 Delivery Room Air Room Air Ventilator 01/31/17 01/31/17 01/31/17 01/31/17 15:00 15:00 15:00 15:15 Temp 97.7 97.8 97.7 97.8 Pulse 77 77 78 Resp 13 10 B/P (MAP) 122/66 (84) 113/62 (79) Pulse Ox 100 100 100 O2 Delivery Ventilator Ventilator Ventilator 01/31/17 01/31/17 01/31/17 01/31/17 15:15 15:16 15:30 15:30 Temp 98.2 98.2 Pulse 77 80 78 78 Resp 11 B/P (MAP) 123/67 129/72 (91) Pulse Ox 100 O2 Delivery Ventilator 01/31/17 01/31/17 01/31/17 01/31/17 15:45 15:45 15:57 16:00 Temp 98.6 98.6 Pulse 80 78 Resp 11 B/P (MAP) 144/79 (100) 142/77 Pulse Ox 100 O2 Delivery Ventilator Mechanical Ventilator 01/31/17 01/31/17 01/31/17 01/31/17 16:00 16:00 16:01 16:30 Temp 98.9 98.9 Pulse 80 80 Resp 10 10 11 B/P (MAP) 126/66 (86) Pulse Ox 100 100 99 O2 Delivery Ventilator Room Air O2 Flow Rate 2.0 01/31/17 01/31/17 01/31/17 01/31/17 16:30 17:00 17:00 17:20 Temp 98.9 98.9 Pulse 82 89 86 Resp 10 11 B/P (MAP) 110/62 (78) 118/67 (84) Pulse Ox 99 99 100 O2 Delivery Ventilator Ventilator Ventilator 01/31/17 01/31/17 18:00 18:00 Temp 98.9 98.9 Pulse 83 84 Resp 16 B/P (MAP) 96/59 (71) Pulse Ox 99 O2 Delivery Ventilator Intake and Output 01/30/17 01/30/17 01/31/17 15:00 23:00 07:00 Intake Total 550 ml Balance 550 ml ASIF BOWDEN MD Jan 31, 2017 18:55
[2017-01-31 19:38] LABS: HCO3 ABG 19 mmol/L (21-28); PO2 ABG 107 mmHg (75-108); SAT O2 ABG 98 % (92-99)
[2017-01-31 19:39] LABS: FIO2 ABG 40; PCO2 ABG 30 mmHg (35-46); PH ABG 7.42 (7.35-7.45)
[2017-01-31 20:09] LABS: HCO3 ABG 22 mmol/L (21-28); PCO2 ABG 47 mmHg (35-46); PO2 ABG 118 mmHg (75-108); SAT O2 ABG 98 % (92-99)
[2017-01-31] MEDS ORDERED: SODIUM BICARB ADULT 8.4% 50 MEQ/50 ML DISP.SYRIN. IV ONE (20:30)
[2017-01-31 20:53] LABS: FIO2 ABG 40
[2017-01-31] MEDS: FAMOTIDINE 20 MG/2 ML VIAL IVP SCH (20:59)
[2017-01-31] MEDS: ATORVASTATIN CALCIUM 10 MG TABLET. PO SCH (21:00)
[2017-01-31 21:10] LABS: HEMATOCRIT 38.3 % (39.0-53.0)
[2017-01-31 22:29] LABS: HCO3 ABG 24 mmol/L (21-28); PCO2 ABG 44 mmHg (35-46); PH ABG 7.36 (7.35-7.45); PO2 ABG 110 mmHg (75-108); SAT O2 ABG 98 % (92-99)
[2017-01-31 22:53] LABS: FIO2 ABG 32
[2017-01-31] MEDS: KETOROLAC 15 MG/ML VIAL. IV SCH (23:04)
[2017-02-01] VITALS (24 sets, daily range): BP systolic 86–129; BP diastolic 52–78
[2017-02-01] MEDS: MORPHINE SULFATE 4 MG/ML DISP.SYRIN. IV PRN (01:09)
--- NOTE | 2017-02-01 04:12 | EKG ---
[facility] [address] [place] [address] Test Date: 2017-02-01 Test Time: 04:09:53 Pat Name: YANCI RODRIGUEZ Department: Room: 112 1 Gender: M [employer]obile [employer]er: : 1965 Requested By: CHENG LEIJA Order Number: [id number] Reading MD: Alvin Flynn MD Measurements Intervals Victor Rate: 81 P: 34 ME: 172 QRS: 43 QRSD: 92 T: 28 QT: 378 QTc: 445 Interpretive Statements SINUS RHYTHM MILD NON-SPECIFIC J-POINT ELEVATION, CORRELATE WITH SYMPTOMS. Electronically Signed On 02-01-2017 16:13:27 BOAT DISPATCHER by Alvin Flynn MD
[2017-02-01] MEDS: KETOROLAC 15 MG/ML VIAL. IV SCH ×4 (05:24→22:47)
[2017-02-01 05:28] LABS: HEMATOCRIT 36.7 % (39.0-53.0); HEMOGLOBIN 12.5 g/dL (13.0-17.5); RED BLOOD COUNT 4.17 x10^6/uL (4.30-5.70); RED CELL DISTRIBUTION WIDTH 13.7 % (11.5-14.5); WHITE BLOOD COUNT 6.3 x10^3/uL (4.0-11.0)
[2017-02-01 06:15] LABS: CALCIUM 8.3 mg/dL (8.5-10.1); CREATININE 0.7 mg/dL (0.7-1.3); GFR 118.4; MAGNESIUM 1.8 mg/dL (1.8-2.4); POTASSIUM 4.1 mmol/L (3.5-5.1)
[2017-02-01] MEDS: INSULIN ASPART 300 UNITS/3 ML INSULN.PEN SQ SCH ×3 (08:00→17:00)
[2017-02-01] MEDS ORDERED: POTASSIUM CHLORIDE 20MEQ 50 ML IV ONE (08:00)
[2017-02-01] MEDS ORDERED: MAGNESIUM SULFATE 2GM 50 ML IV ONE (08:00)
--- NOTE | 2017-02-01 08:48 | RAD ---
Single view chest radiograph 02/01/2017 Clinical indication: Post CABG. Comparison: Chest 01/31/2017 Findings: Interval removal of Barlow-Rocky catheter with right IJ vascular sheath in place. Removal of endotracheal and nasogastric tubes. Prior median sternotomy and CABG. Two left thoracostomy tubes are noted. Hypoinflation both lungs. Mild bibasilar atelectasis. Impression: 1. Removal of endotracheal and nasogastric tubes and right IJ Barlow-Rocky catheter. 2. Mild bibasilar atelectasis.
[2017-02-01] MEDS: METOPROLOL TART IMMED RELEASE 25 MG TABLET. PO SCH ×4 (09:00→21:00)
[2017-02-01] MEDS: oxyCODONE/APAP 5/325 1 TAB TABLET PO PRN ×3 (09:08→18:02)
[2017-02-01] MEDS: FAMOTIDINE 20 MG/2 ML VIAL IVP SCH ×2 (10:57→20:47)
[2017-02-01] MEDS: GEMFIBROZIL 600 MG TABLET. PO SCH (10:57)
[2017-02-01] MEDS: OMEGA-3 FATTY ACIDS/FISH OIL 1,000 MG CAPSULE. PO SCH (10:58)
[2017-02-01] MEDS: ASPIRIN ENTERIC COATED 325 MG TABLET.DR. PO SCH (10:58)
[2017-02-01] MEDS: ONDANSETRON PF 4 MG/2 ML VIAL. IV PRN ×2 (11:07→14:52)
[2017-02-01] MEDS ORDERED: FUROSEMIDE 20 MG/2 ML VIAL. IVP ONE (11:45)
[2017-02-01] MEDS: ALBUMIN HUMAN 5% 250 ML IV PRN ×2 (11:49→20:13)
--- NOTE | 2017-02-01 15:55 | PDOC ---
Progress Note Subjective Subjective Doing very well. Normotensive and in sinus rhythm. Minimal pain. Complains of some nausea. Hb 12.5, Creat 0.7. Chest x-ray looks good with expected postop findings. Minimal drain output. ROS ROS No nausea No vomiting No SOB No pain No rash Vital Sign Vital Signs Vital Signs Date Time Temp Pulse Resp B/P (MAP) Pulse Ox O2 Delivery O2 Flow Rate FiO2 02/01/17 15:00 70 14 87/53 (64) 100 Nasal Cannula 2.0 02/01/17 12:00 98.6 98.6 Physical Exam PHYSICAL EXAM GENERAL: NAD, Alert HEENT: PERRL, OC/OP NECK: Supple, no JVD, no LN LUNGS: Clear HEART: S1S2, no gallop, no murmur INCISIONS: intact, clean ABD: Soft, NT, no organomegaly, no rebound EXT: No edema, no cyanosis COUNT ROOM CLERK: Alert, oriented x 3, no focal neurologic deficit SKIN: No rash IV: ok Labs Lab Laboratory Tests Test 01/31/17 17:30 01/31/17 17:46 01/31/17 19:30 01/31/17 19:31 O2 Saturation 97 % (92-99) 98 % (92-99) Arterial Blood pH 7.26 (7.35-7.45) 7.42 (7.35-7.45) Arterial Blood pCO2 at Patient Temp 52 mmHg (35-46) 30 mmHg (35-46) Arterial Blood pO2 at Patient Temp 101 mmHg (75-108) 107 mmHg (75-108) Arterial Blood HCO3 23 mmol/L (21-28) 19 mmol/L (21-28) Arterial Blood Base Excess -4 mmol/L (-3-3) -4 mmol/L (-3-3) FiO2 40 40 Glucose (Fingerstick) 194 mg/dL (70-99) 194 mg/dL (70-99) Test 01/31/17 20:05 01/31/17 20:39 01/31/17 21:00 01/31/17 21:10 O2 Saturation 98 % (92-99) Arterial Blood pH 7.30 (7.35-7.45) Arterial Blood pCO2 at Patient Temp 47 mmHg (35-46) Arterial Blood pO2 at Patient Temp 118 mmHg (75-108) Arterial Blood HCO3 22 mmol/L (21-28) Arterial Blood Base Excess -4 mmol/L (-3-3) FiO2 40 Glucose (Fingerstick) 183 mg/dL (70-99) Hemoglobin 13.0 g/dL (13.0-17.5) Hematocrit 38.3 % (39.0-53.0) Mean Corpuscular Hemoglobin Concent 34 g/dL (31-37) Potassium Level 4.2 mmol/L (3.5-5.1) Nasal Screen MRSA (PCR) Negative (Negative) Test 01/31/17 21:44 01/31/17 22:25 01/31/17 23:02 02/01/17 00:19 Glucose (Fingerstick) 164 mg/dL (70-99) 96 mg/dL (70-99) 107 mg/dL (70-99) O2 Saturation 98 % (92-99) Arterial Blood pH 7.36 (7.35-7.45) Arterial Blood pCO2 at Patient Temp 44 mmHg (35-46) Arterial Blood pO2 at Patient Temp 110 mmHg (75-108) Arterial Blood HCO3 24 mmol/L (21-28) Arterial Blood Base Excess -1 mmol/L (-3-3) FiO2 32 Test 02/01/17 01:12 02/01/17 02:16 02/01/17 03:20 02/01/17 04:11 Glucose (Fingerstick) 71 mg/dL (70-99) 72 mg/dL (70-99) 119 mg/dL (70-99) 93 mg/dL (70-99) Test 02/01/17 05:00 02/01/17 05:17 02/01/17 06:40 02/01/17 08:00 White Blood Count 6.3 x10^3/uL (4.0-11.0) Red Blood Count 4.17 x10^6/uL (4.30-5.70) Hemoglobin 12.5 g/dL (13.0-17.5) Hematocrit 36.7 % (39.0-53.0) Mean Corpuscular Volume 88 fL (79-100) Mean Corpuscular Hemoglobin 30 pg (25-35) Mean Corpuscular Hemoglobin Concent 34 g/dL (31-37) Red Cell Distribution Width 13.7 % (11.5-14.5) Platelet Count 90 x10^3/uL (140-400) Sodium Level 139 mmol/L (136-145) Potassium Level 4.1 mmol/L (3.5-5.1) Chloride Level 105 mmol/L (98-107) Carbon Dioxide Level 25 mmol/L (21-32) Anion Gap 9 (6-14) Blood Urea Nitrogen 12 mg/dL (8-26) Creatinine 0.7 mg/dL (0.7-1.3) Estimated GFR (Cockcroft-Gault) 118.4 Glucose Level 168 mg/dL (70-99) Calcium Level 8.3 mg/dL (8.5-10.1) Magnesium Level 1.8 mg/dL (1.8-2.4) Glucose (Fingerstick) 79 mg/dL (70-99) 178 mg/dL (70-99) 193 mg/dL (70-99) Test 02/01/17 09:19 02/01/17 10:22 02/01/17 11:10 02/01/17 12:15 Glucose (Fingerstick) 186 mg/dL (70-99) 211 mg/dL (70-99) 165 mg/dL (70-99) 205 mg/dL (70-99) Test 02/01/17 13:23 02/01/17 14:28 02/01/17 15:41 Glucose (Fingerstick) 162 mg/dL (70-99) 138 mg/dL (70-99) 163 mg/dL (70-99) Objective Assessment POD#1, s/p CABG x 4 (AMAYA to LAD, radial to D1, SVG to OM, SVG to RPDA) Doing very well. Normotensive and in sinus rhythm. Minimal pain. Complains of some nausea. Hb 12.5, Creat 0.7. Chest x-ray looks good with expected postop findings. Minimal drain output. Plan Plan of Care D/c swan-prabha D/c a-line D/c mediastinal tubes Switch amiodarone drip to po for A. fib prophylaxis ASA, b gallo and statin Ambulation and pulmonary toilet OK to give iv Toradol for pain SB MOMIN MD Feb 01, 2017 15:55
--- NOTE | 2017-02-01 16:31 | PDOC ---
PROGRESS NOTES Subjective Subjective Patient is up in a chair. Usual postoperative complaints Objective Objective Vital Signs Date Time Temp Pulse Resp B/P (MAP) Pulse Ox O2 Delivery O2 Flow Rate FiO2 02/01/17 16:00 Nasal Cannula 2.0 02/01/17 16:00 72 19 98/53 (68) 100 02/01/17 12:00 98.6 98.6 Intake and Output 02/02/17 07:00 Intake Total 990 ml Output Total 855 ml Balance 135 ml Intake Oral 990 ml Output Urine Total 625 ml Chest Tube Drainage Total 230 ml Physical Exam Physical Exam No significant changes in cardiac exam Assessment Assessment Good progress post CABG. I agree with present plan. Comment Review of Relevant I have reviewed the following items nguyễn (where applicable) has been applied. Labs Laboratory Tests Test 01/30/17 20:32 01/31/17 05:14 01/31/17 08:23 01/31/17 10:38 Glucose (Fingerstick) 171 mg/dL (70-99) 113 mg/dL (70-99) Bedside Hemoglobin (Calculated) 13.9 g/dL (14-18) Bedside Hematocrit 41 % (37-52) Activated Clotting Time 101 SEC (90-125) 667 SEC (90-125) Bedside Arterial pH 7.48 (7.35-7.45) Bedside Arterial pCO2 31 mmHg (35-45) Bedside Arterial pO2 220 mmHg (75-100) Bedside Arterial HCO3 23 mmol/L (21-28) Bedside Arterial Total CO2 24 mmol/L (21-32) Arterial Bld O2 Saturation (Measur) 100 % (95-99) Bedside Arterial Blood Base Excess 0 mmol/L (0-3) Bedside FiO2 100.0 Bedside Sodium 139 mmol/L (135-145) Bedside Potassium 3.9 mmol/L (3.5-5.0) Glucose Level 142 mg/dL (70-99) Bedside Ionized Calcium (Juan) 1.12 mmol/L (1.13-1.32) Test 01/31/17 10:39 01/31/17 11:20 01/31/17 11:54 01/31/17 12:29 Bedside Hemoglobin (Calculated) 12.9 g/dL (14-18) 11.6 g/dL (14-18) 11.2 g/dL (14-18) 11.6 g/dL (14-18) Bedside Hematocrit 38 % (37-52) 34 % (37-52) 33 % (37-52) 34 % (37-52) Bedside Arterial pH 7.43 (7.35-7.45) 7.44 (7.35-7.45) 7.38 (7.35-7.45) 7.43 (7.35-7.45) Bedside Arterial pCO2 34 mmHg (35-45) 33 mmHg (35-45) 40 mmHg (35-45) 36 mmHg (35-45) Bedside Arterial pO2 204 mmHg (75-100) 275 mmHg (75-100) 262 mmHg (75-100) 225 mmHg (75-100) Bedside Arterial HCO3 23 mmol/L (21-28) 23 mmol/L (21-28) 24 mmol/L (21-28) 24 mmol/L (21-28) Bedside Arterial Total CO2 24 mmol/L (21-32) 24 mmol/L (21-32) 25 mmol/L (21-32) 25 mmol/L (21-32) Arterial Bld O2 Saturation (Measur) 100 % (95-99) 100 % (95-99) 100 % (95-99) 100 % (95-99) Bedside Arterial Blood Base Excess -1 mmol/L (0-3) -1 mmol/L (0-3) -1 mmol/L (0-3) 0 mmol/L (0-3) Bedside FiO2 100.0 70.0 70.0 70.0 Bedside Sodium 139 mmol/L (135-145) 138 mmol/L (135-145) 140 mmol/L (135-145) 140 mmol/L (135-145) Bedside Potassium 3.5 mmol/L (3.5-5.0) 4.7 mmol/L (3.5-5.0) 4.0 mmol/L (3.5-5.0) 3.8 mmol/L (3.5-5.0) Glucose Level 140 mg/dL (70-99) 132 mg/dL (70-99) 135 mg/dL (70-99) 134 mg/dL (70-99) Bedside Ionized Calcium (Juan) 1.15 mmol/L (1.13-1.32) 1.03 mmol/L (1.13-1.32) 1.12 mmol/L (1.13-1.32) 1.12 mmol/L (1.13-1.32) Activated Clotting Time 674 SEC (90-125) 584 SEC (90-125) 474 SEC (90-125) Test 01/31/17 13:00 01/31/17 13:43 01/31/17 13:49 01/31/17 14:26 Bedside Hemoglobin (Calculated) 11.6 g/dL (14-18) 10.2 g/dL (14-18) 11.6 g/dL (14-18) Bedside Hematocrit 34 % (37-52) 30 % (37-52) 34 % (37-52) Activated Clotting Time 485 SEC (90-125) 100 SEC (90-125) Bedside Arterial pH 7.42 (7.35-7.45) 7.50 (7.35-7.45) 7.46 (7.35-7.45) Bedside Arterial pCO2 40 mmHg (35-45) 36 mmHg (35-45) 33 mmHg (35-45) Bedside Arterial pO2 246 mmHg (75-100) 427 mmHg (75-100) 356 mmHg (75-100) Bedside Arterial HCO3 26 mmol/L (21-28) 28 mmol/L (21-28) 24 mmol/L (21-28) Bedside Arterial Total CO2 27 mmol/L (21-32) 29 mmol/L (21-32) 24 mmol/L (21-32) Arterial Bld O2 Saturation (Measur) 100 % (95-99) 100 % (95-99) 100 % (95-99) Bedside Arterial Blood Base Excess 1 mmol/L (0-3) 4 mmol/L (0-3) 0 mmol/L (0-3) Bedside FiO2 75.0 100.0 100.0 Bedside Sodium 140 mmol/L (135-145) 140 mmol/L (135-145) 141 mmol/L (135-145) Bedside Potassium 3.9 mmol/L (3.5-5.0) 3.7 mmol/L (3.5-5.0) 3.7 mmol/L (3.5-5.0) Glucose Level 130 mg/dL (70-99) 113 mg/dL (70-99) 104 mg/dL (70-99) Bedside Ionized Calcium (Juan) 1.13 mmol/L (1.13-1.32) 1.51 mmol/L (1.13-1.32) 1.40 mmol/L (1.13-1.32) White Blood Count 4.9 x10^3/uL (4.0-11.0) Hemoglobin 10.9 g/dL (13.0-17.5) Hematocrit 31.4 % (39.0-53.0) Platelet Count 69 x10^3/uL (140-400) Prothrombin Time 18.9 SEC (11.7-14.0) Prothromb Time International Ratio 1.7 (0.8-1.1) Activated Partial Thromboplast Time 35 SEC (24-38) Fibrinogen 215 mg/dL (200-440) Test 01/31/17 14:51 01/31/17 15:21 01/31/17 15:30 01/31/17 17:30 O2 Saturation 99 % (92-99) 97 % (92-99) Arterial Blood pH 7.33 (7.35-7.45) 7.26 (7.35-7.45) Arterial Blood pCO2 at Patient Temp 44 mmHg (35-46) 52 mmHg (35-46) Arterial Blood pO2 at Patient Temp 291 mmHg (75-108) 101 mmHg (75-108) Arterial Blood HCO3 23 mmol/L (21-28) 23 mmol/L (21-28) Arterial Blood Base Excess -3 mmol/L (-3-3) -4 mmol/L (-3-3) Oxyhemoglobin 98.2 % Methemoglobin 0.7 % (0.0-1.9) Carbon Monoxide, Quantitative 0.3 % (0.0-1.9) FiO2 80 40 Glucose (Fingerstick) 108 mg/dL (70-99) White Blood Count 7.1 x10^3/uL (4.0-11.0) Red Blood Count 4.61 x10^6/uL (4.30-5.70) Hemoglobin 13.7 g/dL (13.0-17.5) Hematocrit 40.2 % (39.0-53.0) Mean Corpuscular Volume 87 fL (79-100) Mean Corpuscular Hemoglobin 30 pg (25-35) Mean Corpuscular Hemoglobin Concent 34 g/dL (31-37) Red Cell Distribution Width 13.6 % (11.5-14.5) Platelet Count 88 x10^3/uL (140-400) Prothrombin Time 15.8 SEC (11.7-14.0) Prothromb Time International Ratio 1.3 (0.8-1.1) Activated Partial Thromboplast Time 35 SEC (24-38) Sodium Level 141 mmol/L (136-145) Potassium Level 4.2 mmol/L (3.5-5.1) Chloride Level 108 mmol/L (98-107) Carbon Dioxide Level 26 mmol/L (21-32) Anion Gap 7 (6-14) Blood Urea Nitrogen 12 mg/dL (8-26) Creatinine 0.8 mg/dL (0.7-1.3) Estimated GFR (Cockcroft-Gault) 101.5 Glucose Level 106 mg/dL (70-99) Calcium Level 9.4 mg/dL (8.5-10.1) Magnesium Level 2.0 mg/dL (1.8-2.4) Test 01/31/17 17:46 01/31/17 19:30 01/31/17 19:31 01/31/17 20:05 Glucose (Fingerstick) 194 mg/dL (70-99) 194 mg/dL (70-99) O2 Saturation 98 % (92-99) 98 % (92-99) Arterial Blood pH 7.42 (7.35-7.45) 7.30 (7.35-7.45) Arterial Blood pCO2 at Patient Temp 30 mmHg (35-46) 47 mmHg (35-46) Arterial Blood pO2 at Patient Temp 107 mmHg (75-108) 118 mmHg (75-108) Arterial Blood HCO3 19 mmol/L (21-28) 22 mmol/L (21-28) Arterial Blood Base Excess -4 mmol/L (-3-3) -4 mmol/L (-3-3) FiO2 40 40 Test 01/31/17 20:39 01/31/17 21:00 01/31/17 21:10 01/31/17 21:44 Glucose (Fingerstick) 183 mg/dL (70-99) 164 mg/dL (70-99) Hemoglobin 13.0 g/dL (13.0-17.5) Hematocrit 38.3 % (39.0-53.0) Mean Corpuscular Hemoglobin Concent 34 g/dL (31-37) Potassium Level 4.2 mmol/L (3.5-5.1) Nasal Screen MRSA (PCR) Negative (Negative) Test 01/31/17 22:25 01/31/17 23:02 02/01/17 00:19 02/01/17 01:12 O2 Saturation 98 % (92-99) Arterial Blood pH 7.36 (7.35-7.45) Arterial Blood pCO2 at Patient Temp 44 mmHg (35-46) Arterial Blood pO2 at Patient Temp 110 mmHg (75-108) Arterial Blood HCO3 24 mmol/L (21-28) Arterial Blood Base Excess -1 mmol/L (-3-3) FiO2 32 Glucose (Fingerstick) 96 mg/dL (70-99) 107 mg/dL (70-99) 71 mg/dL (70-99) Test 02/01/17 02:16 02/01/17 03:20 02/01/17 04:11 02/01/17 05:00 Glucose (Fingerstick) 72 mg/dL (70-99) 119 mg/dL (70-99) 93 mg/dL (70-99) White Blood Count 6.3 x10^3/uL (4.0-11.0) Red Blood Count 4.17 x10^6/uL (4.30-5.70) Hemoglobin 12.5 g/dL (13.0-17.5) Hematocrit 36.7 % (39.0-53.0) Mean Corpuscular Volume 88 fL (79-100) Mean Corpuscular Hemoglobin 30 pg (25-35) Mean Corpuscular Hemoglobin Concent 34 g/dL (31-37) Red Cell Distribution Width 13.7 % (11.5-14.5) Platelet Count 90 x10^3/uL (140-400) Sodium Level 139 mmol/L (136-145) Potassium Level 4.1 mmol/L (3.5-5.1) Chloride Level 105 mmol/L (98-107) Carbon Dioxide Level 25 mmol/L (21-32) Anion Gap 9 (6-14) Blood Urea Nitrogen 12 mg/dL (8-26) Creatinine 0.7 mg/dL (0.7-1.3) Estimated GFR (Cockcroft-Gault) 118.4 Glucose Level 168 mg/dL (70-99) Calcium Level 8.3 mg/dL (8.5-10.1) Magnesium Level 1.8 mg/dL (1.8-2.4) Test 02/01/17 05:17 02/01/17 06:40 02/01/17 08:00 02/01/17 09:19 Glucose (Fingerstick) 79 mg/dL (70-99) 178 mg/dL (70-99) 193 mg/dL (70-99) 186 mg/dL (70-99) Test 02/01/17 10:22 02/01/17 11:10 02/01/17 12:15 02/01/17 13:23 Glucose (Fingerstick) 211 mg/dL (70-99) 165 mg/dL (70-99) 205 mg/dL (70-99) 162 mg/dL (70-99) Test 02/01/17 14:28 02/01/17 15:41 Glucose (Fingerstick) 138 mg/dL (70-99) 163 mg/dL (70-99) Laboratory Tests Test 01/31/17 17:30 01/31/17 17:46 01/31/17 19:30 01/31/17 19:31 O2 Saturation 97 % (92-99) 98 % (92-99) Arterial Blood pH 7.26 (7.35-7.45) 7.42 (7.35-7.45) Arterial Blood pCO2 at Patient Temp 52 mmHg (35-46) 30 mmHg (35-46) Arterial Blood pO2 at Patient Temp 101 mmHg (75-108) 107 mmHg (75-108) Arterial Blood HCO3 23 mmol/L (21-28) 19 mmol/L (21-28) Arterial Blood Base Excess -4 mmol/L (-3-3) -4 mmol/L (-3-3) FiO2 40 40 Glucose (Fingerstick) 194 mg/dL (70-99) 194 mg/dL (70-99) Test 01/31/17 20:05 01/31/17 20:39 01/31/17 21:00 01/31/17 21:10 O2 Saturation 98 % (92-99) Arterial Blood pH 7.30 (7.35-7.45) Arterial Blood pCO2 at Patient Temp 47 mmHg (35-46) Arterial Blood pO2 at Patient Temp 118 mmHg (75-108) Arterial Blood HCO3 22 mmol/L (21-28) Arterial Blood Base Excess -4 mmol/L (-3-3) FiO2 40 Glucose (Fingerstick) 183 mg/dL (70-99) Hemoglobin 13.0 g/dL (13.0-17.5) Hematocrit 38.3 % (39.0-53.0) Mean Corpuscular Hemoglobin Concent 34 g/dL (31-37) Potassium Level 4.2 mmol/L (3.5-5.1) Nasal Screen MRSA (PCR) Negative (Negative) Test 01/31/17 21:44 01/31/17 22:25 01/31/17 23:02 02/01/17 00:19 Glucose (Fingerstick) 164 mg/dL (70-99) 96 mg/dL (70-99) 107 mg/dL (70-99) O2 Saturation 98 % (92-99) Arterial Blood pH 7.36 (7.35-7.45) Arterial Blood pCO2 at Patient Temp 44 mmHg (35-46) Arterial Blood pO2 at Patient Temp 110 mmHg (75-108) Arterial Blood HCO3 24 mmol/L (21-28) Arterial Blood Base Excess -1 mmol/L (-3-3) FiO2 32 Test 02/01/17 01:12 02/01/17 02:16 02/01/17 03:20 02/01/17 04:11 Glucose (Fingerstick) 71 mg/dL (70-99) 72 mg/dL (70-99) 119 mg/dL (70-99) 93 mg/dL (70-99) Test 02/01/17 05:00 02/01/17 05:17 02/01/17 06:40 02/01/17 08:00 White Blood Count 6.3 x10^3/uL (4.0-11.0) Red Blood Count 4.17 x10^6/uL (4.30-5.70) Hemoglobin 12.5 g/dL (13.0-17.5) Hematocrit 36.7 % (39.0-53.0) Mean Corpuscular Volume 88 fL (79-100) Mean Corpuscular Hemoglobin 30 pg (25-35) Mean Corpuscular Hemoglobin Concent 34 g/dL (31-37) Red Cell Distribution Width 13.7 % (11.5-14.5) Platelet Count 90 x10^3/uL (140-400) Sodium Level 139 mmol/L (136-145) Potassium Level 4.1 mmol/L (3.5-5.1) Chloride Level 105 mmol/L (98-107) Carbon Dioxide Level 25 mmol/L (21-32) Anion Gap 9 (6-14) Blood Urea Nitrogen 12 mg/dL (8-26) Creatinine 0.7 mg/dL (0.7-1.3) Estimated GFR (Cockcroft-Gault) 118.4 Glucose Level 168 mg/dL (70-99) Calcium Level 8.3 mg/dL (8.5-10.1) Magnesium Level 1.8 mg/dL (1.8-2.4) Glucose (Fingerstick) 79 mg/dL (70-99) 178 mg/dL (70-99) 193 mg/dL (70-99) Test 02/01/17 09:19 02/01/17 10:22 02/01/17 11:10 02/01/17 12:15 Glucose (Fingerstick) 186 mg/dL (70-99) 211 mg/dL (70-99) 165 mg/dL (70-99) 205 mg/dL (70-99) Test 02/01/17 13:23 02/01/17 14:28 02/01/17 15:41 Glucose (Fingerstick) 162 mg/dL (70-99) 138 mg/dL (70-99) 163 mg/dL (70-99) Medications Current Medications Heparin Sodium/ Sodium Chloride 500 ml @ As Directed STK-MED ONCE .ROUTE ; Start 01/29/17 at 09:21; Stop 01/29/17 at 09:22; Status DC Iohexol (Omnipaque 300 Mg/ml) 100 ml STK-MED ONCE .ROUTE ; Start 01/29/17 at 09 :22; Stop 01/29/17 at 09:23; Status DC Lidocaine HCl 20 ml STK-MED ONCE .ROUTE ; Start 01/29/17 at 09:22; Stop at 09:23; Status DC Fentanyl Citrate (Fentanyl 2ml Vial) 100 mcg STK-MED ONCE .ROUTE ; Start at 09:36; Stop 01/29/17 at 09:37; Status DC Midazolam HCl (Versed) 2 mg STK-MED ONCE .ROUTE ; Start 01/29/17 at 09:36; Stop 01/29/17 at 09:37; Status DC Heparin Sodium/ Sodium Chloride 1,000 unit 1X ONCE IART Last administered on 01/29/17 10:16; Start 01/29/17 at 10:15; Stop 01/29/17 at 10:16; Status DC Midazolam HCl (Versed) 2 mg 1X ONCE IV Last administered on 01/29/17 10:17; Start 01/29/17 at 10:15; Stop 01/29/17 at 10:16; Status DC Fentanyl Citrate (Fentanyl 2ml Vial) 100 mcg 1X ONCE IV Last administered on 01/29/17 10:17; Start 01/29/17 at 10:15; Stop 01/29/17 at 10:16; Status DC Iohexol (Omnipaque 300 Mg/ml) 100 ml 1X ONCE IART Last administered on 10:16; Start 01/29/17 at 10:15; Stop 01/29/17 at 10:16; Status DC Lidocaine HCl 17 ml 1X ONCE IJ Last administered on 01/29/17 10:16; Start 01/29/17 at 10:15; Stop 01/29/17 at 10:16; Status DC Sodium Chloride (Normal Saline Flush) 3 ml QSHIFT PRN IV AFTER MEDS AND BLOOD DRAWS; Start 01/29/17 at 10:15; Stop 01/30/17 at 10:14; Status DC Nitroglycerin (Nitrostat) 0.4 mg PRN Q5MIN PRN SL CHEST PAIN; Start 01/29/17 at 10:15; Stop 01/30/17 at 10:14; Status DC Gemfibrozil (Lopid) 600 mg DAILY PO Last administered on 02/01/17 10:57; Start 01/29/17 at 12:30 Fish Oil (Fish Oil) 1,000 mg DAILY PO Last administered on 02/01/17 10:58; Start 01/29/17 at 12:30 Atorvastatin Calcium (Lipitor) 10 mg QHS PO Last administered on 01/30/17 21: 38; Start 01/29/17 at 21:00 Insulin Aspart (NovoLOG) 0-5 UNITS TIDWMEALS SQ Last administered on t 11:13; Start 01/29/17 at 12:30 Dextrose (Dextrose 50%-Water Syringe) 12.5 gm PRN Q15MIN PRN IV SEE COMMENTS; Start 01/29/17 at 11:45 Pneumococcal Polyvalent Vaccine (Do NOT chart on this placeholder) 1 each PRN 1X PRN MC SEE COMMENTS; Start 01/29/17 at 12:30; Status UNV Pneumococcal Polyvalent Vaccine (Pneumovax 23) 0.5 ml ONCE ONCE VAX IM ; Start 01/29/17 at 13:00; Stop 01/29/17 at 13:01; Status DC Lisinopril (Prinivil) 10 mg DAILY PO ; Start 01/29/17 at 15:30; Stop 01/29/17 at 18:09; Status DC Metoprolol Tartrate (Lopressor) 25 mg BID PO Last administered on 01/30/17t 21 :38; Start 01/29/17 at 21:00 Zolpidem Tartrate (Ambien) 5 mg PRN QHS PRN PO INSOMNIA, MAY REPEAT IN 1HR; Start 01/29/17 at 18:15 Cefazolin Sodium/ Dextrose 50 ml @ 100 mls/hr 1X ONCE IV ; Start 01/30/17 at 06:00; Stop 01/30/17 at 06:29; Status DC Cefazolin Sodium/ Dextrose 50 ml @ 100 mls/hr 1X PREOP ONCE IV ; Start at 06:00; Stop 01/30/17 at 09:48; Status DC Ondansetron HCl (Zofran) 4 mg PRN Q6HRS PRN IV NAUSEA/VOMITING; Start at 07:00; Stop 02/01/17 at 06:59; Status DC Fentanyl Citrate (Fentanyl 2ml Vial) 25 mcg PRN Q5MIN PRN IV MILD PAIN; Start 01/31/17 at 07:00; Stop 02/01/17 at 06:59; Status DC Fentanyl Citrate (Fentanyl 2ml Vial) 50 mcg PRN Q5MIN PRN IV MODERATE PAIN; Start 01/31/17 at 07:00; Stop 02/01/17 at 06:59; Status DC Morphine Sulfate 1 mg PRN Q10MIN PRN IV SEVERE PAIN; Start 01/31/17 at 07:00; Stop 02/01/17 at 06:59; Status DC Ringer's Solution 1,000 ml @ 30 mls/hr Q24H IV Last administered on t 15:25; Start 01/31/17 at 07:00; Stop 01/31/17 at 18:59; Status DC Lidocaine HCl (Xylocaine-Mpf 1% Vial) 2 ml PRN 1X PRN ID IV START; Start 01/31 at 07:00; Stop 02/01/17 at 06:59; Status DC Hydromorphone HCl (Dilaudid) 0.5 mg PRN Q10MIN PRN IV SEV PAIN, Second choice; Start 01/31/17 at 07:00; Stop 02/01/17 at 06:59; Status DC Prochlorperazine Edisylate (Compazine) 5 mg PACU PRN PRN IV NAUSEA, MRX1; Start 01/31/17 at 07:00; Stop 02/01/17 at 06:59; Status DC Heparin Sodium (Porcine) 30,000 unit STK-MED ONCE .ROUTE ; Start 01/31/17 at 06 :36; Stop 01/31/17 at 06:37; Status DC Rocuronium Friendship (Zemuron) 100 mg STK-MED ONCE .ROUTE ; Start 01/31/17 at 06: 37; Stop 01/31/17 at 06:38; Status DC Ephedrine Sulfate (Akovaz) 50 mg STK-MED ONCE .ROUTE ; Start 01/31/17 at 06:37 ; Stop 01/31/17 at 06:38; Status DC Nitroglycerin/ Dextrose 250 ml @ As Directed STK-MED ONCE IV ; Start 01/31/17 at 06:39; Stop 01/31/17 at 06:40; Status DC Aminocaproic Acid (Amicar) 5,000 mg STK-MED ONCE IV ; Start 01/31/17 at 06:41; Stop 01/31/17 at 06:42; Status DC Etomidate (Amidate) 20 mg STK-MED ONCE IV ; Start 01/31/17 at 06:41; Stop at 06:42; Status DC Lidocaine HCl (Lidocaine Pf 2% Vial) 5 ml STK-MED ONCE .ROUTE ; Start 01/31/17 at 06:41; Stop 01/31/17 at 06:42; Status DC Phenylephrine HCl (Ramy-Synephrine Inj) 10 mg STK-MED ONCE .ROUTE ; Start at 06:41; Stop 01/31/17 at 06:42; Status DC Sufentanil Citrate (Sufenta) 100 mcg STK-MED ONCE .ROUTE ; Start 01/31/17 at 06 :42; Stop 01/31/17 at 06:43; Status DC Midazolam HCl (Versed) 2 mg STK-MED ONCE .ROUTE ; Start 01/31/17 at 06:43; Stop 01/31/17 at 06:44; Status DC Vancomycin HCl (Vanco) 10 gm STK-MED ONCE .ROUTE Last administered on 08:19; Start 01/31/17 at 07:10; Stop 01/31/17 at 07:11; Status DC Cellulose 1 each STK-MED ONCE .ROUTE Last administered on 01/31/17 08:19; Start 01/31/17 at 07:10; Stop 01/31/17 at 07:11; Status DC Papaverine HCl 60 mg STK-MED ONCE .ROUTE Last administered on 01/31/17 08:19 ; Start 01/31/17 at 07:10; Stop 01/31/17 at 07:11; Status DC Aspirin (Aspirin) 300 mg STK-MED ONCE .ROUTE Last administered on 01/31/17 14 :45; Start 01/31/17 at 07:10; Stop 01/31/17 at 07:11; Status DC Sodium Chloride (Sodium Chloride) 50 ml STK-MED ONCE IJ Last administered on 08:19; Start 01/31/17 at 07:10; Stop 01/31/17 at 07:11; Status DC Cefazolin Sodium/ Dextrose 50 ml @ As Directed STK-MED ONCE IV ; Start at 07:20; Stop 01/31/17 at 07:21; Status DC Albumin Human 200 ml @ As Directed STK-MED ONCE IV ; Start 01/31/17 at 07:27; Stop 01/31/17 at 07:28; Status DC Mannitol (Mannitol) 12.5 g STK-MED ONCE .ROUTE ; Start 01/31/17 at 07:28; Stop 01/31/17 at 07:29; Status DC Magnesium Sulfate 5 gm STK-MED ONCE .ROUTE ; Start 01/31/17 at 07:28; Stop at 07:29; Status DC Calcium Chloride 1,000 mg STK-MED ONCE IV ; Start 01/31/17 at 07:28; Stop at 07:29; Status DC Heparin Sodium (Porcine) 30,000 unit STK-MED ONCE .ROUTE ; Start 01/31/17 at 07 :29; Stop 01/31/17 at 07:30; Status DC Potassium Chloride 70 meq/ Sodium Bicarbonate 12.5 meq/Lidocaine HCl 24 ml/ Parenteral Electrolytes 571.5 ml @ 571.5 mls/ hr 1X PERIOP ONCE IRR ; Start 01/31/17 at 08:00; Stop 01/31/17 at 08:59; Status DC Potassium Chloride 15 meq/ Sodium Bicarbonate 12.5 meq/Parenteral Electrolytes 520 ml @ 520 mls/hr 1X PERIOP ONCE IRR ; Start 01/31/17 at 08:00; Stop 01/31 at 08:59; Status DC Heparin Sodium (Porcine) 74473 unit/Ringer's Solution 1,020 ml @ 1,020 mls/hr 1X PERIOP ONCE IRR Last administered on 01/31/17 08:19; Start 01/31/17 at 08:00; Stop 01/31/17 at 08:59; Status DC Cefazolin Sodium 1 gm/Sodium Chloride 500 ml @ 500 mls/hr 1X PERIOP ONCE IRR Last administered on 01/31/17 08:19; Start 01/31/17 at 08:00; Stop 01/31/17 at 08:59; Status DC Albumin Human 1,000 ml @ As Directed STK-MED ONCE IV ; Start 01/31/17 at 08:00 ; Stop 01/31/17 at 08:03; Status DC Heparin Sodium (Porcine) 800 unit/ Nitroglycerin 4 mg/Verapamil HCl 8 mg/Sodium Bicarbonate 0.34 meq/Ringer's Solution 512.34 ml @ 512.34 mls/hr 1X PERIOP ONCE IRR Last administered on 01/31/17 08:19; Start 01/31/17 at 08:30; Stop 01/31/17 at 09:29; Status DC Sufentanil Citrate (Sufenta) 100 mcg STK-MED ONCE .ROUTE ; Start 01/31/17 at 08 :16; Stop 01/31/17 at 08:17; Status DC Heparin Sodium (Porcine) (Heparin Sodium) 10,000 unit STK-MED ONCE .ROUTE ; Start 01/31/17 at 08:28; Stop 01/31/17 at 08:29; Status DC Rocuronium Friendship (Zemuron) 100 mg STK-MED ONCE .ROUTE ; Start 01/31/17 at 08: 48; Stop 01/31/17 at 08:49; Status DC Sufentanil Citrate (Sufenta) 100 mcg STK-MED ONCE .ROUTE ; Start 01/31/17 at 09 :45; Stop 01/31/17 at 09:46; Status DC Norepinephrine Bitartrate 250 ml @ 1.875 mls/ hr 1X ONCE IV ; Start 01/31/17 at 10:15; Stop 02/05/17 at 23:34 Insulin Human Regular 150 unit/ Sodium Chloride 151.5 ml @ 0 mls/hr 1X ONCE IV ; Start 01/31/17 at 10:15; Stop 01/31/17 at 10:16; Status DC Cefazolin Sodium 100 ml @ As Directed STK-MED ONCE IV ; Start 01/31/17 at 10: 06; Stop 01/31/17 at 10:07; Status DC Rocuronium Friendship (Zemuron) 100 mg STK-MED ONCE .ROUTE ; Start 01/31/17 at 11: 23; Stop 01/31/17 at 11:24; Status DC Midazolam HCl (Versed) 5 mg STK-MED ONCE .ROUTE ; Start 01/31/17 at 11:23; Stop 01/31/17 at 11:24; Status DC Midazolam HCl (Versed) 5 mg STK-MED ONCE .ROUTE ; Start 01/31/17 at 11:51; Stop 01/31/17 at 11:52; Status DC Sufentanil Citrate (Sufenta) 100 mcg STK-MED ONCE .ROUTE ; Start 01/31/17 at 12 :48; Stop 01/31/17 at 12:49; Status DC Rocuronium Friendship (Zemuron) 50 mg STK-MED ONCE .ROUTE ; Start 01/31/17 at 13: 23; Stop 01/31/17 at 13:24; Status DC Mannitol (Mannitol) 12.5 g STK-MED ONCE .ROUTE ; Start 01/31/17 at 13:40; Stop 01/31/17 at 13:41; Status DC Clevidipine 100 ml @ 0 mls/hr CONT PRN IV PER PROTOCOL Last administered on 15:57; Start 01/31/17 at 14:30 Sodium Chloride (Normal Saline Flush) 3 ml PRN Q12HR PRN IV AFTER MEDS AND BLOOD DRAWS; Start 01/31/17 at 15:00 Ringer's Solution 1,000 ml @ 30 mls/hr Q24H IV Last administered on 14:51; Start 01/31/17 at 14:51 Albumin Human 250 ml @ 60 mls/hr PRN Q4HRS PRN IV SEE I/O RECORD Last administered on 02/01/17 11:49; Start 01/31/17 at 15:00 Insulin Human Regular 150 unit/ Sodium Chloride 151.5 ml @ 0 mls/hr CONT PRN PRN IV SEE I/O RECORD; Start 01/31/17 at 15:00 Dextrose (Dextrose 50%-Water Syringe) 25 gm PRN Q15MIN PRN IV LOW BLOOD SUGAR; Start 01/31/17 at 15:00 Amiodarone HCl 150 mg/Dextrose 103 ml @ 200 mls/hr STAT STAT IV Last administered on 01/31/17 15:16; Start 01/31/17 at 14:51; Stop 01/31/17 at 15 :24; Status DC Amiodarone HCl 900 mg/Dextrose 518 ml @ 33.33 mls/ hr CONT PRN IV I/O Last administered on 01/31/17 15:16; Start 01/31/17 at 15:00 Info 1 ea CONT PRN PRN MC SEE COMMENTS; Start 01/31/17 at 15:00 Info 1 ea CONT PRN PRN MC SEE COMMENTS; Start 01/31/17 at 15:00 Magnesium Sulfate/ Dextrose 100 ml @ 100 mls/hr PRN DAILY PRN IV FOR MAG < 2.2 ; Start 01/31/17 at 15:00 Famotidine (Pepcid Vial) 20 mg BID IVP Last administered on 02/01/17 10:57; Start 01/31/17 at 21:00 Ondansetron HCl (Zofran) 4 mg PRN Q4HRS PRN IV NAUSEA/VOMITING Last administered on 02/01/17 14:52; Start 01/31/17 at 15:00 Prochlorperazine Edisylate (Compazine) 10 mg PRN Q6HRS PRN IV NAUSEA/VOMITING ( 2ND Choice); Start 01/31/17 at 15:00 Morphine Sulfate 2 mg PRN Q1HR PRN IV PAIN Last administered on 02/01/17 01: 09; Start 01/31/17 at 15:00 Acetaminophen (Tylenol) 650 mg PRN Q4HRS PRN PO MILD PAIN / TEMP; Start at 15:00 Acetaminophen (Acetaminophen Supp) 650 mg PRN Q4HRS PRN NV MILD PAIN / TEMP; Start 01/31/17 at 15:00 Meperidine HCl (Demerol) 12.5 mg PRN Q15MIN PRN IV SHIVERING; Start 01/31/17 at 15:00; Stop 02/01/17 at 14:51; Status DC Propofol 100 ml @ 0 mls/hr CONT PRN PRN IV POSTOP SEDATION UNTIL EXTUBATE; Start 01/31/17 at 15:00 Bisacodyl (Dulcolax Supp) 10 mg PRN DAILY PRN NV NO BOWEL MOVEMENT; Start at 15:00 Aspirin (Ecotrin) 325 mg DAILYWBKFT PO Last administered on 02/01/17 10:58; Start 01/31/17 at 16:00 Albuterol Sulfate (Ventolin Neb Soln) 2.5 mg PRN Q4HRS PRN NEB SHORTNESS OF BREATH; Start 01/31/17 at 15:00 Metoprolol Tartrate (Lopressor) 25 mg BID PO ; Start 01/31/17 at 16:00 Nicardipine HCl 50 mg/Sodium Chloride 270 ml @ 0 mls/hr CONT PRN PRN IV PER PROTOCOL; Start 01/31/17 at 15:00 Oxycodone/ Acetaminophen (Percocet 5/325) 1 tab PRN Q4HRS PRN PO MILD PAIN; Start 01/31/17 at 15:00 Oxycodone/ Acetaminophen (Percocet 5/325) 2 tab PRN Q4HRS PRN PO MODERATE PAIN , SEVERE PAIN Last administered on 02/01/17 13:25; Start 01/31/17 at 15:00 Cefazolin Sodium/ Dextrose 50 ml @ 100 mls/hr Q8H IV Last administered on 13:25; Start 01/31/17 at 22:00; Stop 02/02/17 at 06:29 Polyethylene Glycol (miraLAX PACKET) 17 gm QHS PO ; Start 02/01/17 at 21:00 Morphine Sulfate 1 mg PRN Q10MIN PRN IV PAIN; Start 01/31/17 at 15:15 Morphine Sulfate 10 mg STK-MED ONCE .ROUTE ; Start 01/31/17 at 15:09; Stop at 15:10; Status DC Magnesium Sulfate/ Dextrose 50 ml @ 25 mls/hr 1X ONCE IV Last administered on 01/31/17 17:55; Start 01/31/17 at 17:45; Stop 01/31/17 at 19:44; Status DC Potassium Chloride 50 ml @ 50 mls/hr 1X ONCE IV Last administered on 17:54; Start 01/31/17 at 17:45; Stop 01/31/17 at 18:44; Status DC Sodium Bicarbonate 50 meq 1X ONCE IV Last administered on 01/31/17 20:39; Start 01/31/17 at 20:30; Stop 01/31/17 at 20:31; Status DC Potassium Chloride 50 ml @ 50 mls/hr 1X ONCE IV Last administered on 22:18; Start 01/31/17 at 22:15; Stop 01/31/17 at 23:14; Status DC Ketorolac Tromethamine (Toradol) 15 mg Q6H IV Last administered on 02/01/17 10:57; Start 01/31/17 at 23:00; Stop 02/05/17 at 22:59 Potassium Chloride 50 ml @ 50 mls/hr 1X ONCE IV Last administered on 07:59; Start 02/01/17 at 08:00; Stop 02/01/17 at 08:59; Status DC Magnesium Sulfate/ Dextrose 50 ml @ 25 mls/hr 1X ONCE IV Last administered on 02/01/17 07:59; Start 02/01/17 at 08:00; Stop 02/01/17 at 09:59; Status DC Morphine Sulfate 10 mg STK-MED ONCE .ROUTE ; Start 01/31/17 at 15:00; Stop at 08:40; Status DC Furosemide (Lasix) 20 mg 1X ONCE IVP Last administered on 02/01/17t 13:25; Start 02/01/17 at 11:45; Stop 02/01/17 at 11:46; Status DC Amiodarone HCl (Cordarone) 200 mg BID PO ; Start 02/01/17 at 16:00 Active Scripts Active Reported Gemfibrozil 600 Mg Tablet 1 Tab PO DAILY Xigduo Xr 5 mg-500 mg Tablet (Dapagliflozin/Metformin HCl) 1 Each Tab.bp.24h 1 Each PO BID [place] 3 Fish Oil Softgel ([place]-3 Fatty Acids/Fish Oil) 1 Each Capsule.dr 1 Each PO DAILY Pravastatin Sodium 40 Mg Tablet 40 Mg PO DAILY Lisinopril 10 Mg Tablet 10 Mg PO DAILY Vitals/I & O Vital Sign - Last 24 Hours 01/31/17 01/31/17 01/31/17 01/31/17 17:00 17:00 17:20 18:00 Pulse 89 86 83 Resp 11 B/P (MAP) 118/67 (84) Pulse Ox 99 100 O2 Delivery Ventilator Ventilator 01/31/17 01/31/17 01/31/17 01/31/17 18:00 19:00 19:00 19:15 Temp 98.9 98.9 Pulse 84 80 74 Resp 16 16 B/P (MAP) 96/59 (71) 90/55 (67) Pulse Ox 99 99 O2 Delivery Ventilator Ventilator Ventilator 01/31/17 01/31/17 01/31/17 01/31/17 19:34 19:45 20:00 20:00 Temp 99.0 99.0 Pulse 81 81 Resp 16 14 B/P (MAP) 99/57 (71) 99/57 (71) Pulse Ox 100 100 99 O2 Delivery Ventilator CPAP trial Ventilator 01/31/17 01/31/17 01/31/17 01/31/17 20:00 20:30 21:00 21:00 Temp 99.2 99.2 Pulse 78 82 Resp 18 B/P (MAP) 104/55 (71) 104/55 (71) Pulse Ox 98 100 O2 Delivery Mechanical Ventilator Nasal Cannula Nasal Cannula O2 Flow Rate 5.0 3.0 01/31/17 01/31/17 01/31/17 01/31/17 21:01 22:00 22:00 23:00 Temp 99.1 99.4 99.1 99.4 Pulse 82 82 84 Resp 18 16 18 B/P (MAP) 114/57 (76) 111/57 (75) 126/63 (84) Pulse Ox 100 100 O2 Delivery Nasal Cannula Nasal Cannula Nasal Cannula O2 Flow Rate 5.0 3.0 2.0 01/31/17 01/31/17 01/31/17 01/31/17 23:00 23:59 23:59 23:59 Temp 99.2 99.2 Pulse 84 83 83 Resp 20 B/P (MAP) 126/63 (84) 119/57 (77) Pulse Ox 100 O2 Delivery Nasal Cannula Nasal Cannula O2 Flow Rate 2.0 2.0 02/01/17 02/01/17 02/01/17 02/01/17 01:00 01:00 01:09 02:00 Temp 99.0 98.9 99.0 98.9 Pulse 80 80 82 Resp 18 18 16 B/P (MAP) 113/55 (74) 112/54 (73) Pulse Ox 99 99 O2 Delivery Nasal Cannula Nasal Cannula O2 Flow Rate 2.0 2.0 02/01/17 02/01/17 02/01/17 02/01/17 02:00 03:00 03:00 04:00 Temp 99.1 99.1 99.1 99.1 Pulse 82 80 80 82 Resp 16 20 B/P (MAP) 115/54 (74) 119/54 (75) Pulse Ox 99 99 O2 Delivery Nasal Cannula Nasal Cannula O2 Flow Rate 2.0 2.0 02/01/17 02/01/17 02/01/17 02/01/17 04:00 04:00 05:00 05:00 Temp 99.5 99.5 Pulse 82 82 82 Resp 20 B/P (MAP) 129/58 (81) Pulse Ox 99 O2 Delivery Nasal Cannula Nasal Cannula O2 Flow Rate 2.0 2.0 02/01/17 02/01/17 02/01/17 02/01/17 06:00 07:00 08:00 08:00 Temp 98.5 98.5 Pulse 82 88 84 Resp 20 21 20 B/P (MAP) 98/60 (73) 86/55 (65) 94/58 (70) Pulse Ox 99 99 99 O2 Delivery Nasal Cannula Nasal Cannula Nasal Cannula Nasal Cannula O2 Flow Rate 2.0 2.0 2.0 2.0 02/01/17 02/01/17 02/01/17 02/01/17 09:00 09:08 10:00 11:00 Pulse 76 85 78 Resp 18 23 17 B/P (MAP) 95/63 (74) 110/61 (77) 113/78 (90) Pulse Ox 99 99 98 99 O2 Delivery Nasal Cannula Nasal Cannula Nasal Cannula Nasal Cannula O2 Flow Rate 2.0 2.0 2.0 2.0 02/01/17 02/01/17 02/01/17 02/01/17 12:00 12:00 13:00 13:25 Temp 98.6 98.6 Pulse 74 77 Resp 15 18 16 B/P (MAP) 100/58 (72) 91/58 (69) Pulse Ox 100 98 98 O2 Delivery Nasal Cannula Nasal Cannula Nasal Cannula Nasal Cannula O2 Flow Rate 2.0 2.0 2.0 2.0 02/01/17 02/01/17 02/01/17 02/01/17 14:00 14:25 15:00 16:00 Pulse 77 70 72 Resp 21 21 14 19 B/P (MAP) 114/71 (85) 87/53 (64) 98/53 (68) Pulse Ox 100 100 100 100 O2 Delivery Nasal Cannula Nasal Cannula Nasal Cannula Nasal Cannula O2 Flow Rate 2.0 2.0 2.0 2.0 02/01/17 16:00 O2 Delivery Nasal Cannula O2 Flow Rate 2.0 Intake and Output 02/01/17 02/01/17 02/02/17 15:00 23:00 07:00 Intake Total 990 ml Output Total 755 ml 100 ml Balance 235 ml -100 ml ASIF BOWDEN MD Feb 01, 2017 16:31
[2017-02-01] MEDS: IV RINGERS,LACTATED 1000ML 1,000 ML IV SCH (18:02)
[2017-02-01] MEDS: AMIODARONE HCL 200 MG TABLET. PO SCH (18:02)
[2017-02-01 19:21] LABS: CALCIUM 8.4 mg/dL (8.5-10.1); CREATININE 0.9 mg/dL (0.7-1.3); GFR 88.6; MAGNESIUM 2.1 mg/dL (1.8-2.4); POTASSIUM 3.8 mmol/L (3.5-5.1)
[2017-02-01] MEDS: ATORVASTATIN CALCIUM 10 MG TABLET. PO SCH (20:47)
[2017-02-01] MEDS: POLYETHYLENE GLYCOL 3350 17 GM PACKET. PO SCH (20:47)
[2017-02-01] MEDS ORDERED: MAGNESIUM SULFATE 1GM 100 ML IV ONE (21:15)
[2017-02-01] MEDS: POTASSIUM CHLORIDE 20MEQ 50 ML IV SCH ×2 (22:06→23:25)
[2017-02-02] VITALS (16 sets, daily range): BP systolic 87–125; BP diastolic 47–75
[2017-02-02] MEDS: ZOLPIDEM 5 MG TABLET. PO PRN ×2 (00:16→20:47)
[2017-02-02] MEDS ORDERED: ALBUMIN HUMAN 5% 500 ML IV ONE (01:30)
[2017-02-02] MEDS: KETOROLAC 15 MG/ML VIAL. IV SCH ×2 (05:44→11:27)
[2017-02-02] MEDS ORDERED: ALBUMIN HUMAN 5% 250 ML IV ONE ×2 (05:45→12:00)
[2017-02-02] MEDS: INSULIN ASPART 300 UNITS/3 ML INSULN.PEN SQ SCH ×3 (08:00→17:00)
[2017-02-02] MEDS: FAMOTIDINE 20 MG/2 ML VIAL IVP SCH ×2 (08:03→20:47)
[2017-02-02] MEDS: OMEGA-3 FATTY ACIDS/FISH OIL 1,000 MG CAPSULE. PO SCH (08:03)
[2017-02-02] MEDS: AMIODARONE HCL 200 MG TABLET. PO SCH ×2 (08:04→20:46)
[2017-02-02] MEDS: METOPROLOL TART IMMED RELEASE 25 MG TABLET. PO SCH ×3 (08:04→20:47)
[2017-02-02] MEDS: ASPIRIN ENTERIC COATED 325 MG TABLET.DR. PO SCH (08:04)
[2017-02-02] MEDS: GEMFIBROZIL 600 MG TABLET. PO SCH (08:04)
[2017-02-02 09:56] LABS: BASO % 0 % (0-3); EOS % 0 % (0-3); HEMATOCRIT 31.8 % (39.0-53.0); HEMOGLOBIN 10.7 g/dL (13.0-17.5); LYMPH # 0.8 x10^3/uL (1.0-4.8); LYMPH % 13 % (24-48); MEAN CORPUSCULAR HEMOGLOBIN 30 pg (25-35); MEAN CORPUSCULAR HGB CONC 34 g/dL (31-37); MEAN CORPUSCULAR VOLUME 88 fL (79-100); MONO % 8 % (0-9); NEUT % 79 % (31-73); PLATELET COUNT 68 x10^3/uL (140-400); RED BLOOD COUNT 3.61 x10^6/uL (4.30-5.70); RED CELL DISTRIBUTION WIDTH 14.1 % (11.5-14.5); WHITE BLOOD COUNT 5.7 x10^3/uL (4.0-11.0)
[2017-02-02 10:43] LABS: BASO % 0 % (0-3); EOS % 0 % (0-3); HEMATOCRIT 31.2 % (39.0-53.0); HEMOGLOBIN 10.4 g/dL (13.0-17.5); LYMPH # 0.7 x10^3/uL (1.0-4.8); LYMPH % 11 % (24-48); MEAN CORPUSCULAR HEMOGLOBIN 30 pg (25-35); MEAN CORPUSCULAR HGB CONC 33 g/dL (31-37); MEAN CORPUSCULAR VOLUME 88 fL (79-100); MONO % 7 % (0-9); NEUT % 81 % (31-73); PLATELET COUNT 68 x10^3/uL (140-400); RED BLOOD COUNT 3.54 x10^6/uL (4.30-5.70); WHITE BLOOD COUNT 6.3 x10^3/uL (4.0-11.0)
[2017-02-02 10:54] LABS: CALCIUM 7.9 mg/dL (8.5-10.1); CREATININE 0.7 mg/dL (0.7-1.3); GFR 118.4; MAGNESIUM 1.9 mg/dL (1.8-2.4); POTASSIUM 3.7 mmol/L (3.5-5.1)
[2017-02-02] MEDS ORDERED: MAGNESIUM SULFATE 2GM 50 ML IV ONE (11:00)
[2017-02-02] MEDS ORDERED: POTASSIUM CHLORIDE 20MEQ 50 ML IV ONE (11:00)
[2017-02-02] MEDS: IV NORMAL SALINE 1000ML BAG 1,000 ML IV SCH ×2 (12:00→17:53)
--- NOTE | 2017-02-02 13:26 | PDOC ---
Progress Note Subjective Subjective Doing very well. Normotensive and in sinus rhythm. Minimal pain. Borderline urine output the creatinine stable at 0.7. Not taking much by mouth. Minimal drain output. ROS ROS No nausea No vomiting No pain No rash Vital Sign Vital Signs Vital Signs Date Time Temp Pulse Resp B/P (MAP) Pulse Ox O2 Delivery O2 Flow Rate FiO2 02/02/17 12:43 76 12 106/56 (73) 96 Room Air 02/02/17 12:00 98.3 98.3 02/02/17 07:00 2.0 Physical Exam PHYSICAL EXAM GENERAL: NAD, Alert HEENT: PERRL, OC/OP NECK: Supple, no JVD, no LN LUNGS: Clear HEART: S1S2, no gallop, no murmur INCISIONS: intact, clean ABD: Soft, NT, no organomegaly, no rebound EXT: No edema, no cyanosis [employer]: Alert, oriented x 3, no focal neurologic deficit SKIN: No rash IV: ok Labs Lab Laboratory Tests Test 02/01/17 14:28 02/01/17 15:41 02/01/17 16:44 02/01/17 17:57 Glucose (Fingerstick) 138 mg/dL (70-99) 163 mg/dL (70-99) 171 mg/dL (70-99) 116 mg/dL (70-99) Test 02/01/17 18:56 02/01/17 18:58 02/01/17 19:51 02/01/17 20:50 Sodium Level 137 mmol/L (136-145) Potassium Level 3.8 mmol/L (3.5-5.1) Chloride Level 101 mmol/L (98-107) Carbon Dioxide Level 29 mmol/L (21-32) Anion Gap 7 (6-14) Blood Urea Nitrogen 14 mg/dL (8-26) Creatinine 0.9 mg/dL (0.7-1.3) Estimated GFR (Cockcroft-Gault) 88.6 Glucose Level 231 mg/dL (70-99) Calcium Level 8.4 mg/dL (8.5-10.1) Magnesium Level 2.1 mg/dL (1.8-2.4) Glucose (Fingerstick) 240 mg/dL (70-99) 169 mg/dL (70-99) 106 mg/dL (70-99) Test 02/01/17 21:58 02/01/17 23:03 02/02/17 00:06 02/02/17 01:08 Glucose (Fingerstick) 143 mg/dL (70-99) 95 mg/dL (70-99) 135 mg/dL (70-99) 111 mg/dL (70-99) Test 02/02/17 02:11 02/02/17 03:16 02/02/17 05:38 02/02/17 06:47 Glucose (Fingerstick) 92 mg/dL (70-99) 89 mg/dL (70-99) 98 mg/dL (70-99) 87 mg/dL (70-99) Test 02/02/17 07:54 02/02/17 09:15 02/02/17 09:30 02/02/17 10:07 Glucose (Fingerstick) 80 mg/dL (70-99) 146 mg/dL (70-99) 158 mg/dL (70-99) White Blood Count 5.7 x10^3/uL (4.0-11.0) Red Blood Count 3.61 x10^6/uL (4.30-5.70) Hemoglobin 10.7 g/dL (13.0-17.5) Hematocrit 31.8 % (39.0-53.0) Mean Corpuscular Volume 88 fL (79-100) Mean Corpuscular Hemoglobin 30 pg (25-35) Mean Corpuscular Hemoglobin Concent 34 g/dL (31-37) Red Cell Distribution Width 14.1 % (11.5-14.5) Platelet Count 68 x10^3/uL (140-400) Neutrophils (%) (Auto) 79 % (31-73) Lymphocytes (%) (Auto) 13 % (24-48) Monocytes (%) (Auto) 8 % (0-9) Eosinophils (%) (Auto) 0 % (0-3) Basophils (%) (Auto) 0 % (0-3) Neutrophils # (Auto) 4.5 x10^3uL (1.8-7.7) Lymphocytes # (Auto) 0.8 x10^3/uL (1.0-4.8) Monocytes # (Auto) 0.4 x10^3/uL (0.0-1.1) Eosinophils # (Auto) 0.0 x10^3/uL (0.0-0.7) Basophils # (Auto) 0.0 x10^3/uL (0.0-0.2) Test 02/02/17 10:15 02/02/17 11:29 02/02/17 13:01 White Blood Count 6.3 x10^3/uL (4.0-11.0) Red Blood Count 3.54 x10^6/uL (4.30-5.70) Hemoglobin 10.4 g/dL (13.0-17.5) Hematocrit 31.2 % (39.0-53.0) Mean Corpuscular Volume 88 fL (79-100) Mean Corpuscular Hemoglobin 30 pg (25-35) Mean Corpuscular Hemoglobin Concent 33 g/dL (31-37) Red Cell Distribution Width 14.0 % (11.5-14.5) Platelet Count 68 x10^3/uL (140-400) Neutrophils (%) (Auto) 81 % (31-73) Lymphocytes (%) (Auto) 11 % (24-48) Monocytes (%) (Auto) 7 % (0-9) Eosinophils (%) (Auto) 0 % (0-3) Basophils (%) (Auto) 0 % (0-3) Neutrophils # (Auto) 5.1 x10^3uL (1.8-7.7) Lymphocytes # (Auto) 0.7 x10^3/uL (1.0-4.8) Monocytes # (Auto) 0.5 x10^3/uL (0.0-1.1) Eosinophils # (Auto) 0.0 x10^3/uL (0.0-0.7) Basophils # (Auto) 0.0 x10^3/uL (0.0-0.2) Sodium Level 138 mmol/L (136-145) Potassium Level 3.7 mmol/L (3.5-5.1) Chloride Level 102 mmol/L (98-107) Carbon Dioxide Level 26 mmol/L (21-32) Anion Gap 10 (6-14) Blood Urea Nitrogen 15 mg/dL (8-26) Creatinine 0.7 mg/dL (0.7-1.3) Estimated GFR (Cockcroft-Gault) 118.4 Glucose Level 154 mg/dL (70-99) Calcium Level 7.9 mg/dL (8.5-10.1) Magnesium Level 1.9 mg/dL (1.8-2.4) Glucose (Fingerstick) 154 mg/dL (70-99) 133 mg/dL (70-99) Objective Assessment POD#2, s/p CABG x 4 (AMAYA to LAD, radial to D1, SVG to OM, SVG to RPDA) Doing very well. Normotensive and in sinus rhythm. Minimal pain. Borderline urine output the creatinine stable at 0.7. Not taking much by mouth. Minimal drain output. Plan Plan of Care D/c pleural tube D/c pacing wires D/c cordis D/c Lux Will start some maintenance IV fluids until patient's by mouth intake is adequate Oral amiodarone for A. fib prophylaxis ASA, b gallo and statin Ambulation and pulmonary toilet Transfer to stepdown Platelet count of 68k noted. Stop Toradol SB MOMIN MD Feb 02, 2017 13:26
[2017-02-02] MEDS: IV RINGERS,LACTATED 1000ML 1,000 ML IV SCH (14:51)
--- NOTE | 2017-02-02 15:16 | PDOC ---
PROGRESS NOTES Subjective Subjective Patient is feeling better today. Objective Objective Vital Signs Date Time Temp Pulse Resp B/P (MAP) Pulse Ox O2 Delivery O2 Flow Rate FiO2 02/02/17 12:43 76 12 106/56 (73) 96 Room Air 02/02/17 12:00 98.3 98.3 02/02/17 07:00 2.0 Intake and Output 02/03/17 07:00 Intake Total 300 ml Output Total 275 ml Balance 25 ml Intake Oral 300 ml Output Urine Total 205 ml Chest Tube Drainage Total 70 ml Physical Exam Physical Exam No significant changes in cardiac exam Assessment Assessment Patient improving post CABG. May be transferred out of ICU. Comment Review of Relevant I have reviewed the following items nguyễn (where applicable) has been applied. Labs Laboratory Tests Test 01/31/17 15:21 01/31/17 15:30 01/31/17 17:30 01/31/17 17:46 Glucose (Fingerstick) 108 mg/dL (70-99) 194 mg/dL (70-99) White Blood Count 7.1 x10^3/uL (4.0-11.0) Red Blood Count 4.61 x10^6/uL (4.30-5.70) Hemoglobin 13.7 g/dL (13.0-17.5) Hematocrit 40.2 % (39.0-53.0) Mean Corpuscular Volume 87 fL (79-100) Mean Corpuscular Hemoglobin 30 pg (25-35) Mean Corpuscular Hemoglobin Concent 34 g/dL (31-37) Red Cell Distribution Width 13.6 % (11.5-14.5) Platelet Count 88 x10^3/uL (140-400) Prothrombin Time 15.8 SEC (11.7-14.0) Prothromb Time International Ratio 1.3 (0.8-1.1) Activated Partial Thromboplast Time 35 SEC (24-38) Sodium Level 141 mmol/L (136-145) Potassium Level 4.2 mmol/L (3.5-5.1) Chloride Level 108 mmol/L (98-107) Carbon Dioxide Level 26 mmol/L (21-32) Anion Gap 7 (6-14) Blood Urea Nitrogen 12 mg/dL (8-26) Creatinine 0.8 mg/dL (0.7-1.3) Estimated GFR (Cockcroft-Gault) 101.5 Glucose Level 106 mg/dL (70-99) Calcium Level 9.4 mg/dL (8.5-10.1) Magnesium Level 2.0 mg/dL (1.8-2.4) O2 Saturation 97 % (92-99) Arterial Blood pH 7.26 (7.35-7.45) Arterial Blood pCO2 at Patient Temp 52 mmHg (35-46) Arterial Blood pO2 at Patient Temp 101 mmHg (75-108) Arterial Blood HCO3 23 mmol/L (21-28) Arterial Blood Base Excess -4 mmol/L (-3-3) FiO2 40 Test 01/31/17 19:30 01/31/17 19:31 01/31/17 20:05 01/31/17 20:39 O2 Saturation 98 % (92-99) 98 % (92-99) Arterial Blood pH 7.42 (7.35-7.45) 7.30 (7.35-7.45) Arterial Blood pCO2 at Patient Temp 30 mmHg (35-46) 47 mmHg (35-46) Arterial Blood pO2 at Patient Temp 107 mmHg (75-108) 118 mmHg (75-108) Arterial Blood HCO3 19 mmol/L (21-28) 22 mmol/L (21-28) Arterial Blood Base Excess -4 mmol/L (-3-3) -4 mmol/L (-3-3) FiO2 40 40 Glucose (Fingerstick) 194 mg/dL (70-99) 183 mg/dL (70-99) Test 01/31/17 21:00 01/31/17 21:10 01/31/17 21:44 01/31/17 22:25 Hemoglobin 13.0 g/dL (13.0-17.5) Hematocrit 38.3 % (39.0-53.0) Mean Corpuscular Hemoglobin Concent 34 g/dL (31-37) Potassium Level 4.2 mmol/L (3.5-5.1) Nasal Screen MRSA (PCR) Negative (Negative) Glucose (Fingerstick) 164 mg/dL (70-99) O2 Saturation 98 % (92-99) Arterial Blood pH 7.36 (7.35-7.45) Arterial Blood pCO2 at Patient Temp 44 mmHg (35-46) Arterial Blood pO2 at Patient Temp 110 mmHg (75-108) Arterial Blood HCO3 24 mmol/L (21-28) Arterial Blood Base Excess -1 mmol/L (-3-3) FiO2 32 Test 01/31/17 23:02 02/01/17 00:19 02/01/17 01:12 02/01/17 02:16 Glucose (Fingerstick) 96 mg/dL (70-99) 107 mg/dL (70-99) 71 mg/dL (70-99) 72 mg/dL (70-99) Test 02/01/17 03:20 02/01/17 04:11 02/01/17 05:00 02/01/17 05:17 Glucose (Fingerstick) 119 mg/dL (70-99) 93 mg/dL (70-99) 79 mg/dL (70-99) White Blood Count 6.3 x10^3/uL (4.0-11.0) Red Blood Count 4.17 x10^6/uL (4.30-5.70) Hemoglobin 12.5 g/dL (13.0-17.5) Hematocrit 36.7 % (39.0-53.0) Mean Corpuscular Volume 88 fL (79-100) Mean Corpuscular Hemoglobin 30 pg (25-35) Mean Corpuscular Hemoglobin Concent 34 g/dL (31-37) Red Cell Distribution Width 13.7 % (11.5-14.5) Platelet Count 90 x10^3/uL (140-400) Sodium Level 139 mmol/L (136-145) Potassium Level 4.1 mmol/L (3.5-5.1) Chloride Level 105 mmol/L (98-107) Carbon Dioxide Level 25 mmol/L (21-32) Anion Gap 9 (6-14) Blood Urea Nitrogen 12 mg/dL (8-26) Creatinine 0.7 mg/dL (0.7-1.3) Estimated GFR (Cockcroft-Gault) 118.4 Glucose Level 168 mg/dL (70-99) Calcium Level 8.3 mg/dL (8.5-10.1) Magnesium Level 1.8 mg/dL (1.8-2.4) Test 02/01/17 06:40 02/01/17 08:00 02/01/17 09:19 02/01/17 10:22 Glucose (Fingerstick) 178 mg/dL (70-99) 193 mg/dL (70-99) 186 mg/dL (70-99) 211 mg/dL (70-99) Test 02/01/17 11:10 02/01/17 12:15 02/01/17 13:23 02/01/17 14:28 Glucose (Fingerstick) 165 mg/dL (70-99) 205 mg/dL (70-99) 162 mg/dL (70-99) 138 mg/dL (70-99) Test 02/01/17 15:41 02/01/17 16:44 02/01/17 17:57 02/01/17 18:56 Glucose (Fingerstick) 163 mg/dL (70-99) 171 mg/dL (70-99) 116 mg/dL (70-99) Sodium Level 137 mmol/L (136-145) Potassium Level 3.8 mmol/L (3.5-5.1) Chloride Level 101 mmol/L (98-107) Carbon Dioxide Level 29 mmol/L (21-32) Anion Gap 7 (6-14) Blood Urea Nitrogen 14 mg/dL (8-26) Creatinine 0.9 mg/dL (0.7-1.3) Estimated GFR (Cockcroft-Gault) 88.6 Glucose Level 231 mg/dL (70-99) Calcium Level 8.4 mg/dL (8.5-10.1) Magnesium Level 2.1 mg/dL (1.8-2.4) Test 02/01/17 18:58 02/01/17 19:51 02/01/17 20:50 02/01/17 21:58 Glucose (Fingerstick) 240 mg/dL (70-99) 169 mg/dL (70-99) 106 mg/dL (70-99) 143 mg/dL (70-99) Test 02/01/17 23:03 02/02/17 00:06 02/02/17 01:08 02/02/17 02:11 Glucose (Fingerstick) 95 mg/dL (70-99) 135 mg/dL (70-99) 111 mg/dL (70-99) 92 mg/dL (70-99) Test 02/02/17 03:16 02/02/17 05:38 02/02/17 06:47 02/02/17 07:54 Glucose (Fingerstick) 89 mg/dL (70-99) 98 mg/dL (70-99) 87 mg/dL (70-99) 80 mg/dL (70-99) Test 02/02/17 09:15 02/02/17 09:30 02/02/17 10:07 02/02/17 10:15 Glucose (Fingerstick) 146 mg/dL (70-99) 158 mg/dL (70-99) White Blood Count 5.7 x10^3/uL (4.0-11.0) 6.3 x10^3/uL (4.0-11.0) Red Blood Count 3.61 x10^6/uL (4.30-5.70) 3.54 x10^6/uL (4.30-5.70) Hemoglobin 10.7 g/dL (13.0-17.5) 10.4 g/dL (13.0-17.5) Hematocrit 31.8 % (39.0-53.0) 31.2 % (39.0-53.0) Mean Corpuscular Volume 88 fL (79-100) 88 fL (79-100) Mean Corpuscular Hemoglobin 30 pg (25-35) 30 pg (25-35) Mean Corpuscular Hemoglobin Concent 34 g/dL (31-37) 33 g/dL (31-37) Red Cell Distribution Width 14.1 % (11.5-14.5) 14.0 % (11.5-14.5) Platelet Count 68 x10^3/uL (140-400) 68 x10^3/uL (140-400) Neutrophils (%) (Auto) 79 % (31-73) 81 % (31-73) Lymphocytes (%) (Auto) 13 % (24-48) 11 % (24-48) Monocytes (%) (Auto) 8 % (0-9) 7 % (0-9) Eosinophils (%) (Auto) 0 % (0-3) 0 % (0-3) Basophils (%) (Auto) 0 % (0-3) 0 % (0-3) Neutrophils # (Auto) 4.5 x10^3uL (1.8-7.7) 5.1 x10^3uL (1.8-7.7) Lymphocytes # (Auto) 0.8 x10^3/uL (1.0-4.8) 0.7 x10^3/uL (1.0-4.8) Monocytes # (Auto) 0.4 x10^3/uL (0.0-1.1) 0.5 x10^3/uL (0.0-1.1) Eosinophils # (Auto) 0.0 x10^3/uL (0.0-0.7) 0.0 x10^3/uL (0.0-0.7) Basophils # (Auto) 0.0 x10^3/uL (0.0-0.2) 0.0 x10^3/uL (0.0-0.2) Sodium Level 138 mmol/L (136-145) Potassium Level 3.7 mmol/L (3.5-5.1) Chloride Level 102 mmol/L (98-107) Carbon Dioxide Level 26 mmol/L (21-32) Anion Gap 10 (6-14) Blood Urea Nitrogen 15 mg/dL (8-26) Creatinine 0.7 mg/dL (0.7-1.3) Estimated GFR (Cockcroft-Gault) 118.4 Glucose Level 154 mg/dL (70-99) Calcium Level 7.9 mg/dL (8.5-10.1) Magnesium Level 1.9 mg/dL (1.8-2.4) Test 02/02/17 11:29 02/02/17 13:01 Glucose (Fingerstick) 154 mg/dL (70-99) 133 mg/dL (70-99) Laboratory Tests Test 02/01/17 15:41 02/01/17 16:44 02/01/17 17:57 02/01/17 18:56 Glucose (Fingerstick) 163 mg/dL (70-99) 171 mg/dL (70-99) 116 mg/dL (70-99) Sodium Level 137 mmol/L (136-145) Potassium Level 3.8 mmol/L (3.5-5.1) Chloride Level 101 mmol/L (98-107) Carbon Dioxide Level 29 mmol/L (21-32) Anion Gap 7 (6-14) Blood Urea Nitrogen 14 mg/dL (8-26) Creatinine 0.9 mg/dL (0.7-1.3) Estimated GFR (Cockcroft-Gault) 88.6 Glucose Level 231 mg/dL (70-99) Calcium Level 8.4 mg/dL (8.5-10.1) Magnesium Level 2.1 mg/dL (1.8-2.4) Test 02/01/17 18:58 02/01/17 19:51 02/01/17 20:50 02/01/17 21:58 Glucose (Fingerstick) 240 mg/dL (70-99) 169 mg/dL (70-99) 106 mg/dL (70-99) 143 mg/dL (70-99) Test 02/01/17 23:03 02/02/17 00:06 02/02/17 01:08 02/02/17 02:11 Glucose (Fingerstick) 95 mg/dL (70-99) 135 mg/dL (70-99) 111 mg/dL (70-99) 92 mg/dL (70-99) Test 02/02/17 03:16 02/02/17 05:38 02/02/17 06:47 02/02/17 07:54 Glucose (Fingerstick) 89 mg/dL (70-99) 98 mg/dL (70-99) 87 mg/dL (70-99) 80 mg/dL (70-99) Test 02/02/17 09:15 02/02/17 09:30 02/02/17 10:07 02/02/17 10:15 Glucose (Fingerstick) 146 mg/dL (70-99) 158 mg/dL (70-99) White Blood Count 5.7 x10^3/uL (4.0-11.0) 6.3 x10^3/uL (4.0-11.0) Red Blood Count 3.61 x10^6/uL (4.30-5.70) 3.54 x10^6/uL (4.30-5.70) Hemoglobin 10.7 g/dL (13.0-17.5) 10.4 g/dL (13.0-17.5) Hematocrit 31.8 % (39.0-53.0) 31.2 % (39.0-53.0) Mean Corpuscular Volume 88 fL (79-100) 88 fL (79-100) Mean Corpuscular Hemoglobin 30 pg (25-35) 30 pg (25-35) Mean Corpuscular Hemoglobin Concent 34 g/dL (31-37) 33 g/dL (31-37) Red Cell Distribution Width 14.1 % (11.5-14.5) 14.0 % (11.5-14.5) Platelet Count 68 x10^3/uL (140-400) 68 x10^3/uL (140-400) Neutrophils (%) (Auto) 79 % (31-73) 81 % (31-73) Lymphocytes (%) (Auto) 13 % (24-48) 11 % (24-48) Monocytes (%) (Auto) 8 % (0-9) 7 % (0-9) Eosinophils (%) (Auto) 0 % (0-3) 0 % (0-3) Basophils (%) (Auto) 0 % (0-3) 0 % (0-3) Neutrophils # (Auto) 4.5 x10^3uL (1.8-7.7) 5.1 x10^3uL (1.8-7.7) Lymphocytes # (Auto) 0.8 x10^3/uL (1.0-4.8) 0.7 x10^3/uL (1.0-4.8) Monocytes # (Auto) 0.4 x10^3/uL (0.0-1.1) 0.5 x10^3/uL (0.0-1.1) Eosinophils # (Auto) 0.0 x10^3/uL (0.0-0.7) 0.0 x10^3/uL (0.0-0.7) Basophils # (Auto) 0.0 x10^3/uL (0.0-0.2) 0.0 x10^3/uL (0.0-0.2) Sodium Level 138 mmol/L (136-145) Potassium Level 3.7 mmol/L (3.5-5.1) Chloride Level 102 mmol/L (98-107) Carbon Dioxide Level 26 mmol/L (21-32) Anion Gap 10 (6-14) Blood Urea Nitrogen 15 mg/dL (8-26) Creatinine 0.7 mg/dL (0.7-1.3) Estimated GFR (Cockcroft-Gault) 118.4 Glucose Level 154 mg/dL (70-99) Calcium Level 7.9 mg/dL (8.5-10.1) Magnesium Level 1.9 mg/dL (1.8-2.4) Test 02/02/17 11:29 02/02/17 13:01 Glucose (Fingerstick) 154 mg/dL (70-99) 133 mg/dL (70-99) Medications Current Medications Heparin Sodium/ Sodium Chloride 500 ml @ As Directed STK-MED ONCE .ROUTE ; Start 01/29/17 at 09:21; Stop 01/29/17 at 09:22; Status DC Iohexol (Omnipaque 300 Mg/ml) 100 ml STK-MED ONCE .ROUTE ; Start 01/29/17 at 09 :22; Stop 01/29/17 at 09:23; Status DC Lidocaine HCl 20 ml STK-MED ONCE .ROUTE ; Start 01/29/17 at 09:22; Stop at 09:23; Status DC Fentanyl Citrate (Fentanyl 2ml Vial) 100 mcg STK-MED ONCE .ROUTE ; Start at 09:36; Stop 01/29/17 at 09:37; Status DC Midazolam HCl (Versed) 2 mg STK-MED ONCE .ROUTE ; Start 01/29/17 at 09:36; Stop 01/29/17 at 09:37; Status DC Heparin Sodium/ Sodium Chloride 1,000 unit 1X ONCE IART Last administered on 01/29/17 10:16; Start 01/29/17 at 10:15; Stop 01/29/17 at 10:16; Status DC Midazolam HCl (Versed) 2 mg 1X ONCE IV Last administered on 01/29/17 10:17; Start 01/29/17 at 10:15; Stop 01/29/17 at 10:16; Status DC Fentanyl Citrate (Fentanyl 2ml Vial) 100 mcg 1X ONCE IV Last administered on 01/29/17 10:17; Start 01/29/17 at 10:15; Stop 01/29/17 at 10:16; Status DC Iohexol (Omnipaque 300 Mg/ml) 100 ml 1X ONCE IART Last administered on 10:16; Start 01/29/17 at 10:15; Stop 01/29/17 at 10:16; Status DC Lidocaine HCl 17 ml 1X ONCE IJ Last administered on 01/29/17 10:16; Start 01/29/17 at 10:15; Stop 01/29/17 at 10:16; Status DC Sodium Chloride (Normal Saline Flush) 3 ml QSHIFT PRN IV AFTER MEDS AND BLOOD DRAWS; Start 01/29/17 at 10:15; Stop 01/30/17 at 10:14; Status DC Nitroglycerin (Nitrostat) 0.4 mg PRN Q5MIN PRN SL CHEST PAIN; Start 01/29/17 at 10:15; Stop 01/30/17 at 10:14; Status DC Gemfibrozil (Lopid) 600 mg DAILY PO Last administered on 02/02/17 08:04; Start 01/29/17 at 12:30 Fish Oil (Fish Oil) 1,000 mg DAILY PO Last administered on 02/02/17 08:03; Start 01/29/17 at 12:30 Atorvastatin Calcium (Lipitor) 10 mg QHS PO Last administered on 02/01/17 20: 47; Start 01/29/17 at 21:00 Insulin Aspart (NovoLOG) 0-5 UNITS TIDWMEALS SQ Last administered on 11:41; Start 01/29/17 at 12:30; Stop 02/02/17 at 13:19; Status DC Dextrose (Dextrose 50%-Water Syringe) 12.5 gm PRN Q15MIN PRN IV SEE COMMENTS; Start 01/29/17 at 11:45 Pneumococcal Polyvalent Vaccine (Do NOT chart on this placeholder) 1 each PRN 1X PRN MC SEE COMMENTS; Start 01/29/17 at 12:30; Status UNV Pneumococcal Polyvalent Vaccine (Pneumovax 23) 0.5 ml ONCE ONCE VAX IM ; Start 01/29/17 at 13:00; Stop 01/29/17 at 13:01; Status DC Lisinopril (Prinivil) 10 mg DAILY PO ; Start 01/29/17 at 15:30; Stop 01/29/17 at 18:09; Status DC Metoprolol Tartrate (Lopressor) 25 mg BID PO Last administered on 01/30/17 21 :38; Start 01/29/17 at 21:00 Zolpidem Tartrate (Ambien) 5 mg PRN QHS PRN PO INSOMNIA, MAY REPEAT IN 1HR Last administered on 02/02/17 00:16; Start 01/29/17 at 18:15 Cefazolin Sodium/ Dextrose 50 ml @ 100 mls/hr 1X ONCE IV ; Start 01/30/17 at 06:00; Stop 01/30/17 at 06:29; Status DC Cefazolin Sodium/ Dextrose 50 ml @ 100 mls/hr 1X PREOP ONCE IV ; Start at 06:00; Stop 01/30/17 at 09:48; Status DC Ondansetron HCl (Zofran) 4 mg PRN Q6HRS PRN IV NAUSEA/VOMITING; Start at 07:00; Stop 02/01/17 at 06:59; Status DC Fentanyl Citrate (Fentanyl 2ml Vial) 25 mcg PRN Q5MIN PRN IV MILD PAIN; Start 01/31/17 at 07:00; Stop 02/01/17 at 06:59; Status DC Fentanyl Citrate (Fentanyl 2ml Vial) 50 mcg PRN Q5MIN PRN IV MODERATE PAIN; Start 01/31/17 at 07:00; Stop 02/01/17 at 06:59; Status DC Morphine Sulfate 1 mg PRN Q10MIN PRN IV SEVERE PAIN; Start 01/31/17 at 07:00; Stop 02/01/17 at 06:59; Status DC Ringer's Solution 1,000 ml @ 30 mls/hr Q24H IV Last administered on t 15:25; Start 01/31/17 at 07:00; Stop 01/31/17 at 18:59; Status DC Lidocaine HCl (Xylocaine-Mpf 1% Vial) 2 ml PRN 1X PRN ID IV START; Start 01/31 at 07:00; Stop 02/01/17 at 06:59; Status DC Hydromorphone HCl (Dilaudid) 0.5 mg PRN Q10MIN PRN IV SEV PAIN, Second choice; Start 01/31/17 at 07:00; Stop 02/01/17 at 06:59; Status DC Prochlorperazine Edisylate (Compazine) 5 mg PACU PRN PRN IV NAUSEA, MRX1; Start 01/31/17 at 07:00; Stop 02/01/17 at 06:59; Status DC Heparin Sodium (Porcine) 30,000 unit STK-MED ONCE .ROUTE ; Start 01/31/17 at 06 :36; Stop 01/31/17 at 06:37; Status DC Rocuronium [place] (Zemuron) 100 mg STK-MED ONCE .ROUTE ; Start 01/31/17 at 06: 37; Stop 01/31/17 at 06:38; Status DC Ephedrine Sulfate (Akovaz) 50 mg STK-MED ONCE .ROUTE ; Start 01/31/17 at 06:37 ; Stop 01/31/17 at 06:38; Status DC Nitroglycerin/ Dextrose 250 ml @ As Directed STK-MED ONCE IV ; Start 01/31/17 at 06:39; Stop 01/31/17 at 06:40; Status DC Aminocaproic Acid (Amicar) 5,000 mg STK-MED ONCE IV ; Start 01/31/17 at 06:41; Stop 01/31/17 at 06:42; Status DC Etomidate (Amidate) 20 mg STK-MED ONCE IV ; Start 01/31/17 at 06:41; Stop at 06:42; Status DC Lidocaine HCl (Lidocaine Pf 2% Vial) 5 ml STK-MED ONCE .ROUTE ; Start 01/31/17 at 06:41; Stop 01/31/17 at 06:42; Status DC Phenylephrine HCl (Ramy-Synephrine Inj) 10 mg STK-MED ONCE .ROUTE ; Start at 06:41; Stop 01/31/17 at 06:42; Status DC Sufentanil Citrate (Sufenta) 100 mcg STK-MED ONCE .ROUTE ; Start 01/31/17 at 06 :42; Stop 01/31/17 at 06:43; Status DC Midazolam HCl (Versed) 2 mg STK-MED ONCE .ROUTE ; Start 01/31/17 at 06:43; Stop 01/31/17 at 06:44; Status DC Vancomycin HCl (Vanco) 10 gm STK-MED ONCE .ROUTE Last administered on t 08:19; Start 01/31/17 at 07:10; Stop 01/31/17 at 07:11; Status DC Cellulose 1 each STK-MED ONCE .ROUTE Last administered on 01/31/17 08:19; Start 01/31/17 at 07:10; Stop 01/31/17 at 07:11; Status DC Papaverine HCl 60 mg STK-MED ONCE .ROUTE Last administered on 01/31/17 08:19 ; Start 01/31/17 at 07:10; Stop 01/31/17 at 07:11; Status DC Aspirin (Aspirin) 300 mg STK-MED ONCE .ROUTE Last administered on 01/31/17 14 :45; Start 01/31/17 at 07:10; Stop 01/31/17 at 07:11; Status DC Sodium Chloride (Sodium Chloride) 50 ml STK-MED ONCE IJ Last administered on 08:19; Start 01/31/17 at 07:10; Stop 01/31/17 at 07:11; Status DC Cefazolin Sodium/ Dextrose 50 ml @ As Directed STK-MED ONCE IV ; Start at 07:20; Stop 01/31/17 at 07:21; Status DC Albumin Human 200 ml @ As Directed STK-MED ONCE IV ; Start 01/31/17 at 07:27; Stop 01/31/17 at 07:28; Status DC Mannitol (Mannitol) 12.5 g STK-MED ONCE .ROUTE ; Start 01/31/17 at 07:28; Stop 01/31/17 at 07:29; Status DC Magnesium Sulfate 5 gm STK-MED ONCE .ROUTE ; Start 01/31/17 at 07:28; Stop at 07:29; Status DC Calcium Chloride 1,000 mg STK-MED ONCE IV ; Start 01/31/17 at 07:28; Stop at 07:29; Status DC Heparin Sodium (Porcine) 30,000 unit STK-MED ONCE .ROUTE ; Start 01/31/17 at 07 :29; Stop 01/31/17 at 07:30; Status DC Potassium Chloride 70 meq/ Sodium Bicarbonate 12.5 meq/Lidocaine HCl 24 ml/ Parenteral Electrolytes 571.5 ml @ 571.5 mls/ hr 1X PERIOP ONCE IRR ; Start 01/31/17 at 08:00; Stop 01/31/17 at 08:59; Status DC Potassium Chloride 15 meq/ Sodium Bicarbonate 12.5 meq/Parenteral Electrolytes 520 ml @ 520 mls/hr 1X PERIOP ONCE IRR ; Start 01/31/17 at 08:00; Stop 01/31 at 08:59; Status DC Heparin Sodium (Porcine) 06508 unit/Ringer's Solution 1,020 ml @ 1,020 mls/hr 1X PERIOP ONCE IRR Last administered on 01/31/17 08:19; Start 01/31/17 at 08:00; Stop 01/31/17 at 08:59; Status DC Cefazolin Sodium 1 gm/Sodium Chloride 500 ml @ 500 mls/hr 1X PERIOP ONCE IRR Last administered on 01/31/17 08:19; Start 01/31/17 at 08:00; Stop 01/31/17 at 08:59; Status DC Albumin Human 1,000 ml @ As Directed STK-MED ONCE IV ; Start 01/31/17 at 08:00 ; Stop 01/31/17 at 08:03; Status DC Heparin Sodium (Porcine) 800 unit/ Nitroglycerin 4 mg/Verapamil HCl 8 mg/Sodium Bicarbonate 0.34 meq/Ringer's Solution 512.34 ml @ 512.34 mls/hr 1X PERIOP ONCE IRR Last administered on 01/31/17 08:19; Start 01/31/17 at 08:30; Stop 01/31/17 at 09:29; Status DC Sufentanil Citrate (Sufenta) 100 mcg STK-MED ONCE .ROUTE ; Start 01/31/17 at 08 :16; Stop 01/31/17 at 08:17; Status DC Heparin Sodium (Porcine) (Heparin Sodium) 10,000 unit STK-MED ONCE .ROUTE ; Start 01/31/17 at 08:28; Stop 01/31/17 at 08:29; Status DC Rocuronium [place] (Zemuron) 100 mg STK-MED ONCE .ROUTE ; Start 01/31/17 at 08: 48; Stop 01/31/17 at 08:49; Status DC Sufentanil Citrate (Sufenta) 100 mcg STK-MED ONCE .ROUTE ; Start 01/31/17 at 09 :45; Stop 01/31/17 at 09:46; Status DC Norepinephrine Bitartrate 250 ml @ 1.875 mls/ hr 1X ONCE IV ; Start 01/31/17 at 10:15; Stop 02/02/17 at 13:15; Status DC Insulin Human Regular 150 unit/ Sodium Chloride 151.5 ml @ 0 mls/hr 1X ONCE IV ; Start 01/31/17 at 10:15; Stop 01/31/17 at 10:16; Status DC Cefazolin Sodium 100 ml @ As Directed STK-MED ONCE IV ; Start 01/31/17 at 10: 06; Stop 01/31/17 at 10:07; Status DC Rocuronium [place] (Zemuron) 100 mg STK-MED ONCE .ROUTE ; Start 01/31/17 at 11: 23; Stop 01/31/17 at 11:24; Status DC Midazolam HCl (Versed) 5 mg STK-MED ONCE .ROUTE ; Start 01/31/17 at 11:23; Stop 01/31/17 at 11:24; Status DC Midazolam HCl (Versed) 5 mg STK-MED ONCE .ROUTE ; Start 01/31/17 at 11:51; Stop 01/31/17 at 11:52; Status DC Sufentanil Citrate (Sufenta) 100 mcg STK-MED ONCE .ROUTE ; Start 01/31/17 at 12 :48; Stop 01/31/17 at 12:49; Status DC Rocuronium [place] (Zemuron) 50 mg STK-MED ONCE .ROUTE ; Start 01/31/17 at 13: 23; Stop 01/31/17 at 13:24; Status DC Mannitol (Mannitol) 12.5 g STK-MED ONCE .ROUTE ; Start 01/31/17 at 13:40; Stop 01/31/17 at 13:41; Status DC Clevidipine 100 ml @ 0 mls/hr CONT PRN IV PER PROTOCOL Last administered on t 15:57; Start 01/31/17 at 14:30; Stop 02/02/17 at 13:15; Status DC Sodium Chloride (Normal Saline Flush) 3 ml PRN Q12HR PRN IV AFTER MEDS AND BLOOD DRAWS; Start 01/31/17 at 15:00 Ringer's Solution 1,000 ml @ 30 mls/hr Q24H IV Last administered on t 18:02; Start 01/31/17 at 14:51 Albumin Human 250 ml @ 60 mls/hr PRN Q4HRS PRN IV SEE I/O RECORD Last administered on 02/01/17 20:13; Start 01/31/17 at 15:00 Insulin Human Regular 150 unit/ Sodium Chloride 151.5 ml @ 0 mls/hr CONT PRN PRN IV SEE I/O RECORD Last administered on 02/01/17 19:36; Start 01/31/17 at 15:00 Dextrose (Dextrose 50%-Water Syringe) 25 gm PRN Q15MIN PRN IV LOW BLOOD SUGAR; Start 01/31/17 at 15:00 Amiodarone HCl 150 mg/Dextrose 103 ml @ 200 mls/hr STAT STAT IV Last administered on 01/31/17 15:16; Start 01/31/17 at 14:51; Stop 01/31/17 at 15 :24; Status DC Amiodarone HCl 900 mg/Dextrose 518 ml @ 33.33 mls/ hr CONT PRN IV I/O Last administered on 01/31/17 15:16; Start 01/31/17 at 15:00; Stop 02/02/17 at 13 :15; Status DC Info 1 ea CONT PRN PRN MC SEE COMMENTS; Start 01/31/17 at 15:00 Info 1 ea CONT PRN PRN MC SEE COMMENTS; Start 01/31/17 at 15:00; Stop at 13:15; Status DC Magnesium Sulfate/ Dextrose 100 ml @ 100 mls/hr PRN DAILY PRN IV FOR MAG < 2.2 ; Start 01/31/17 at 15:00 Famotidine (Pepcid Vial) 20 mg BID IVP Last administered on 02/02/17 08:03; Start 01/31/17 at 21:00 Ondansetron HCl (Zofran) 4 mg PRN Q4HRS PRN IV NAUSEA/VOMITING Last administered on 02/01/17 14:52; Start 01/31/17 at 15:00 Prochlorperazine Edisylate (Compazine) 10 mg PRN Q6HRS PRN IV NAUSEA/VOMITING ( 2ND Choice); Start 01/31/17 at 15:00 Morphine Sulfate 2 mg PRN Q1HR PRN IV PAIN Last administered on 02/01/17 01: 09; Start 01/31/17 at 15:00 Acetaminophen (Tylenol) 650 mg PRN Q4HRS PRN PO MILD PAIN / TEMP; Start at 15:00 Acetaminophen (Acetaminophen Supp) 650 mg PRN Q4HRS PRN MO MILD PAIN / TEMP; Start 01/31/17 at 15:00 Meperidine HCl (Demerol) 12.5 mg PRN Q15MIN PRN IV SHIVERING; Start 01/31/17 at 15:00; Stop 02/01/17 at 14:51; Status DC Propofol 100 ml @ 0 mls/hr CONT PRN PRN IV POSTOP SEDATION UNTIL EXTUBATE; Start 01/31/17 at 15:00; Stop 02/02/17 at 13:16; Status DC Bisacodyl (Dulcolax Supp) 10 mg PRN DAILY PRN MO NO BOWEL MOVEMENT; Start at 15:00 Aspirin (Ecotrin) 325 mg DAILYWBKFT PO Last administered on 02/02/17 08:04; Start 01/31/17 at 16:00 Albuterol Sulfate (Ventolin Neb Soln) 2.5 mg PRN Q4HRS PRN NEB SHORTNESS OF BREATH; Start 01/31/17 at 15:00 Metoprolol Tartrate (Lopressor) 25 mg BID PO ; Start 01/31/17 at 16:00; Stop 02/02/17 at 13:16; Status DC Nicardipine HCl 50 mg/Sodium Chloride 270 ml @ 0 mls/hr CONT PRN PRN IV PER PROTOCOL; Start 01/31/17 at 15:00; Stop 02/02/17 at 13:16; Status DC Oxycodone/ Acetaminophen (Percocet 5/325) 1 tab PRN Q4HRS PRN PO MILD PAIN Last administered on 02/02/17 08:05; Start 01/31/17 at 15:00 Oxycodone/ Acetaminophen (Percocet 5/325) 2 tab PRN Q4HRS PRN PO MODERATE PAIN , SEVERE PAIN Last administered on 02/01/17 18:02; Start 01/31/17 at 15:00 Cefazolin Sodium/ Dextrose 50 ml @ 100 mls/hr Q8H IV Last administered on 06:24; Start 01/31/17 at 22:00; Stop 02/02/17 at 06:29; Status DC Polyethylene Glycol (miraLAX PACKET) 17 gm QHS PO Last administered on 20:47; Start 02/01/17 at 21:00 Morphine Sulfate 1 mg PRN Q10MIN PRN IV PAIN; Start 01/31/17 at 15:15 Morphine Sulfate 10 mg STK-MED ONCE .ROUTE ; Start 01/31/17 at 15:09; Stop at 15:10; Status DC Magnesium Sulfate/ Dextrose 50 ml @ 25 mls/hr 1X ONCE IV Last administered on 01/31/17 17:55; Start 01/31/17 at 17:45; Stop 01/31/17 at 19:44; Status DC Potassium Chloride 50 ml @ 50 mls/hr 1X ONCE IV Last administered on 17:54; Start 01/31/17 at 17:45; Stop 01/31/17 at 18:44; Status DC Sodium Bicarbonate 50 meq 1X ONCE IV Last administered on 01/31/17 20:39; Start 01/31/17 at 20:30; Stop 01/31/17 at 20:31; Status DC Potassium Chloride 50 ml @ 50 mls/hr 1X ONCE IV Last administered on 22:18; Start 01/31/17 at 22:15; Stop 01/31/17 at 23:14; Status DC Ketorolac Tromethamine (Toradol) 15 mg Q6H IV Last administered on 02/02/17 11:27; Start 01/31/17 at 23:00; Stop 02/02/17 at 12:44; Status DC Potassium Chloride 50 ml @ 50 mls/hr 1X ONCE IV Last administered on 07:59; Start 02/01/17 at 08:00; Stop 02/01/17 at 08:59; Status DC Magnesium Sulfate/ Dextrose 50 ml @ 25 mls/hr 1X ONCE IV Last administered on 02/01/17 07:59; Start 02/01/17 at 08:00; Stop 02/01/17 at 09:59; Status DC Morphine Sulfate 10 mg STK-MED ONCE .ROUTE ; Start 01/31/17 at 15:00; Stop at 08:40; Status DC Furosemide (Lasix) 20 mg 1X ONCE IVP Last administered on 02/01/17 13:25; Start 02/01/17 at 11:45; Stop 02/01/17 at 11:46; Status DC Amiodarone HCl (Cordarone) 200 mg BID PO Last administered on 02/02/17 08:04 ; Start 02/01/17 at 16:00 Magnesium Sulfate/ Dextrose 100 ml @ 100 mls/hr 1X ONCE IV Last administered on 02/01/17 22:50; Start 02/01/17 at 21:15; Stop 02/01/17 at 22:14; Status DC Potassium Chloride 50 ml @ 50 mls/hr Q1H IV Last administered on 02/01/17 23: 25; Start 02/01/17 at 21:15; Stop 02/01/17 at 23:14; Status DC Albumin Human 500 ml @ 250 mls/hr 1X ONCE IV Last administered on 02/02/17 01:29; Start 02/02/17 at 01:30; Stop 02/02/17 at 03:29; Status DC Albumin Human 250 ml @ 62.5 mls/hr 1X ONCE IV Last administered on 06:24; Start 02/02/17 at 05:45; Stop 02/02/17 at 09:44; Status DC Potassium Chloride 50 ml @ 50 mls/hr 1X ONCE IV Last administered on 12:19; Start 02/02/17 at 11:00; Stop 02/02/17 at 11:59; Status DC Magnesium Sulfate/ Dextrose 50 ml @ 25 mls/hr 1X ONCE IV Last administered on 02/02/17 12:19; Start 02/02/17 at 11:00; Stop 02/02/17 at 12:59; Status DC Albumin Human 250 ml @ 62.5 mls/hr 1X ONCE IV Last administered on 12:31; Start 02/02/17 at 12:00; Stop 02/02/17 at 15:59 Sodium Chloride 1,000 ml @ 75 mls/hr [id number] IV Last administered on 12:00; Start 02/02/17 at 12:00 Insulin Aspart (NovoLOG) 0-7 UNITS TIDWMEALS SQ ; Start 02/02/17 at 17:00 Active Scripts Active Reported Gemfibrozil 600 Mg Tablet 1 Tab PO DAILY Xigduo Xr 5 mg-500 mg Tablet (Dapagliflozin/Metformin HCl) 1 Each Tab.bp.24h 1 Each PO BID Winters 3 Fish Oil Softgel (Winters-3 Fatty Acids/Fish Oil) 1 Each Capsule.dr 1 Each PO DAILY Pravastatin Sodium 40 Mg Tablet 40 Mg PO DAILY Lisinopril 10 Mg Tablet 10 Mg PO DAILY Vitals/I & O Vital Sign - Last 24 Hours 02/01/17 02/01/17 02/01/17 02/01/17 16:00 16:00 17:00 18:00 Temp 98.5 98.5 Pulse 72 68 72 Resp 19 13 19 B/P (MAP) 98/53 (68) 91/52 (65) 95/59 (71) Pulse Ox 100 100 98 O2 Delivery Nasal Cannula Nasal Cannula Nasal Cannula Room Air O2 Flow Rate 2.0 2.0 2.0 02/01/17 02/01/17 02/01/17 02/01/17 18:02 18:02 18:52 19:00 Pulse 72 87 Resp 16 18 B/P (MAP) 91/52 101/54 (70) Pulse Ox 100 100 96 O2 Delivery Nasal Cannula Room Air Room Air O2 Flow Rate 2.0 02/01/17 02/01/17 02/01/17 02/01/17 20:00 20:00 21:00 22:00 Temp 98.4 98.4 Pulse 76 78 76 Resp 16 18 18 B/P (MAP) 88/54 (65) 94/60 (71) 99/57 (71) Pulse Ox 96 98 94 O2 Delivery Room Air Room Air Room Air Room Air 02/01/17 02/01/17 02/01/17 02/02/17 23:00 23:59 23:59 01:00 Temp 99.0 99.0 Pulse 74 68 66 Resp 16 16 14 B/P (MAP) 112/64 (80) 94/54 (67) 101/57 (72) Pulse Ox 100 99 100 O2 Delivery Nasal Cannula Nasal Cannula Nasal Cannula Nasal Cannula O2 Flow Rate 2.0 2.0 2.0 2.0 02/02/17 02/02/17 02/02/17 02/02/17 02:00 03:00 03:45 04:00 Temp 98.4 98.4 Pulse 72 65 68 Resp 14 12 12 B/P (MAP) 87/47 (60) 95/55 (68) 116/63 (80) Pulse Ox 100 100 100 O2 Delivery Nasal Cannula Nasal Cannula Nasal Cannula Nasal Cannula O2 Flow Rate 2.0 2.0 2.0 2.0 02/02/17 02/02/17 02/02/17 02/02/17 05:00 06:00 07:00 08:00 Pulse 67 70 70 Resp 12 16 14 B/P (MAP) 96/59 (71) 104/75 (85) 99/57 (71) Pulse Ox 100 100 100 O2 Delivery Nasal Cannula Nasal Cannula Nasal Cannula Room Air O2 Flow Rate 2.0 2.0 2.0 02/02/17 02/02/17 02/02/17 02/02/17 08:00 08:04 08:05 09:00 Temp 98.4 98.4 Pulse 77 77 85 Resp 19 16 B/P (MAP) 100/60 (73) 100/60 102/52 (69) Pulse Ox 93 93 92 O2 Delivery Room Air Room Air Room Air 02/02/17 02/02/17 02/02/17 02/02/17 09:22 10:00 11:00 12:00 Temp 98.3 98.3 Pulse 75 75 76 Resp 19 19 19 B/P (MAP) 96/61 (73) 110/62 (78) 98/56 (70) Pulse Ox 94 95 95 95 O2 Delivery Room Air Room Air Room Air Room Air 02/02/17 02/02/17 12:00 12:43 Pulse 76 Resp 12 B/P (MAP) 106/56 (73) Pulse Ox 96 O2 Delivery Room Air Room Air Intake and Output 02/02/17 02/02/17 02/03/17 15:00 23:00 07:00 Intake Total 300 ml Output Total 275 ml Balance 25 ml ASIF BOWDEN MD Feb 02, 2017 15:15
[2017-02-02] MEDS: oxyCODONE/APAP 5/325 1 TAB TABLET PO PRN ×2 (15:24→22:33)
[2017-02-02] MEDS: ONDANSETRON PF 4 MG/2 ML VIAL. IV PRN (18:53)
[2017-02-02] MEDS: ATORVASTATIN CALCIUM 10 MG TABLET. PO SCH (20:46)
[2017-02-02] MEDS: POLYETHYLENE GLYCOL 3350 17 GM PACKET. PO SCH (20:47)
[2017-02-03] MEDS: IV NORMAL SALINE 1000ML BAG 1,000 ML IV SCH ×3 (01:20→14:40)
[2017-02-03 06:22] VITALS: BP 122/71
[2017-02-03] MEDS: oxyCODONE/APAP 5/325 1 TAB TABLET PO PRN ×4 (06:29→20:27)
[2017-02-03] MEDS: INSULIN ASPART 300 UNITS/3 ML INSULN.PEN SQ SCH ×3 (08:00→17:00)
[2017-02-03] MEDS: GEMFIBROZIL 600 MG TABLET. PO SCH (08:18)
[2017-02-03] MEDS: OMEGA-3 FATTY ACIDS/FISH OIL 1,000 MG CAPSULE. PO SCH (08:18)
[2017-02-03] MEDS: METOPROLOL TART IMMED RELEASE 25 MG TABLET. PO SCH ×2 (08:18→20:18)
[2017-02-03] MEDS: AMIODARONE HCL 200 MG TABLET. PO SCH ×2 (08:19→20:17)
[2017-02-03] MEDS: FAMOTIDINE 20 MG/2 ML VIAL IVP SCH ×2 (08:20→20:18)
[2017-02-03] MEDS: ASPIRIN ENTERIC COATED 325 MG TABLET.DR. PO SCH (08:20)
[2017-02-03 11:13] VITALS: BP 107/61
--- NOTE | 2017-02-03 12:56 | PDOC ---
PROGRESS NOTES Subjective Subjective The patient is feeling better today. Good diuresis. Objective Objective Vital Signs Date Time Temp Pulse Resp B/P (MAP) Pulse Ox O2 Delivery O2 Flow Rate FiO2 02/03/17 11:39 16 91 Room Air 2.0 02/03/17 11:13 99.7 70 107/61 (76) 99.7 Intake and Output 02/04/17 07:00 Intake Total 400 ml Balance 400 ml Intake Oral 400 ml Physical Exam Physical Exam Lungs moving air better, less rales, no wheezing Heart no changes Extremities less edema Assessment Assessment Acute CHF is improving. Continue with the Lasix drip and dobutamine drip for 24 hours more. Comment Review of Relevant I have reviewed the following items nguyễn (where applicable) has been applied. Labs Laboratory Tests Test 02/01/17 13:23 02/01/17 14:28 02/01/17 15:41 02/01/17 16:44 Glucose (Fingerstick) 162 mg/dL (70-99) 138 mg/dL (70-99) 163 mg/dL (70-99) 171 mg/dL (70-99) Test 02/01/17 17:57 02/01/17 18:56 02/01/17 18:58 02/01/17 19:51 Glucose (Fingerstick) 116 mg/dL (70-99) 240 mg/dL (70-99) 169 mg/dL (70-99) Sodium Level 137 mmol/L (136-145) Potassium Level 3.8 mmol/L (3.5-5.1) Chloride Level 101 mmol/L (98-107) Carbon Dioxide Level 29 mmol/L (21-32) Anion Gap 7 (6-14) Blood Urea Nitrogen 14 mg/dL (8-26) Creatinine 0.9 mg/dL (0.7-1.3) Estimated GFR (Cockcroft-Gault) 88.6 Glucose Level 231 mg/dL (70-99) Calcium Level 8.4 mg/dL (8.5-10.1) Magnesium Level 2.1 mg/dL (1.8-2.4) Test 02/01/17 20:50 02/01/17 21:58 02/01/17 23:03 02/02/17 00:06 Glucose (Fingerstick) 106 mg/dL (70-99) 143 mg/dL (70-99) 95 mg/dL (70-99) 135 mg/dL (70-99) Test 02/02/17 01:08 02/02/17 02:11 02/02/17 03:16 02/02/17 05:38 Glucose (Fingerstick) 111 mg/dL (70-99) 92 mg/dL (70-99) 89 mg/dL (70-99) 98 mg/dL (70-99) Test 02/02/17 06:47 02/02/17 07:54 02/02/17 09:15 02/02/17 09:30 Glucose (Fingerstick) 87 mg/dL (70-99) 80 mg/dL (70-99) 146 mg/dL (70-99) White Blood Count 5.7 x10^3/uL (4.0-11.0) Red Blood Count 3.61 x10^6/uL (4.30-5.70) Hemoglobin 10.7 g/dL (13.0-17.5) Hematocrit 31.8 % (39.0-53.0) Mean Corpuscular Volume 88 fL (79-100) Mean Corpuscular Hemoglobin 30 pg (25-35) Mean Corpuscular Hemoglobin Concent 34 g/dL (31-37) Red Cell Distribution Width 14.1 % (11.5-14.5) Platelet Count 68 x10^3/uL (140-400) Neutrophils (%) (Auto) 79 % (31-73) Lymphocytes (%) (Auto) 13 % (24-48) Monocytes (%) (Auto) 8 % (0-9) Eosinophils (%) (Auto) 0 % (0-3) Basophils (%) (Auto) 0 % (0-3) Neutrophils # (Auto) 4.5 x10^3uL (1.8-7.7) Lymphocytes # (Auto) 0.8 x10^3/uL (1.0-4.8) Monocytes # (Auto) 0.4 x10^3/uL (0.0-1.1) Eosinophils # (Auto) 0.0 x10^3/uL (0.0-0.7) Basophils # (Auto) 0.0 x10^3/uL (0.0-0.2) Test 02/02/17 10:07 02/02/17 10:15 02/02/17 11:29 02/02/17 13:01 Glucose (Fingerstick) 158 mg/dL (70-99) 154 mg/dL (70-99) 133 mg/dL (70-99) White Blood Count 6.3 x10^3/uL (4.0-11.0) Red Blood Count 3.54 x10^6/uL (4.30-5.70) Hemoglobin 10.4 g/dL (13.0-17.5) Hematocrit 31.2 % (39.0-53.0) Mean Corpuscular Volume 88 fL (79-100) Mean Corpuscular Hemoglobin 30 pg (25-35) Mean Corpuscular Hemoglobin Concent 33 g/dL (31-37) Red Cell Distribution Width 14.0 % (11.5-14.5) Platelet Count 68 x10^3/uL (140-400) Neutrophils (%) (Auto) 81 % (31-73) Lymphocytes (%) (Auto) 11 % (24-48) Monocytes (%) (Auto) 7 % (0-9) Eosinophils (%) (Auto) 0 % (0-3) Basophils (%) (Auto) 0 % (0-3) Neutrophils # (Auto) 5.1 x10^3uL (1.8-7.7) Lymphocytes # (Auto) 0.7 x10^3/uL (1.0-4.8) Monocytes # (Auto) 0.5 x10^3/uL (0.0-1.1) Eosinophils # (Auto) 0.0 x10^3/uL (0.0-0.7) Basophils # (Auto) 0.0 x10^3/uL (0.0-0.2) Sodium Level 138 mmol/L (136-145) Potassium Level 3.7 mmol/L (3.5-5.1) Chloride Level 102 mmol/L (98-107) Carbon Dioxide Level 26 mmol/L (21-32) Anion Gap 10 (6-14) Blood Urea Nitrogen 15 mg/dL (8-26) Creatinine 0.7 mg/dL (0.7-1.3) Estimated GFR (Cockcroft-Gault) 118.4 Glucose Level 154 mg/dL (70-99) Calcium Level 7.9 mg/dL (8.5-10.1) Magnesium Level 1.9 mg/dL (1.8-2.4) Test 02/02/17 17:16 02/02/17 20:44 02/03/17 12:28 Glucose (Fingerstick) 111 mg/dL (70-99) 200 mg/dL (70-99) 195 mg/dL (70-99) Laboratory Tests Test 02/02/17 13:01 02/02/17 17:16 02/02/17 20:44 02/03/17 12:28 Glucose (Fingerstick) 133 mg/dL (70-99) 111 mg/dL (70-99) 200 mg/dL (70-99) 195 mg/dL (70-99) Medications Current Medications Heparin Sodium/ Sodium Chloride 500 ml @ As Directed STK-MED ONCE .ROUTE ; Start 01/29/17 at 09:21; Stop 01/29/17 at 09:22; Status DC Iohexol (Omnipaque 300 Mg/ml) 100 ml STK-MED ONCE .ROUTE ; Start 01/29/17 at 09 :22; Stop 01/29/17 at 09:23; Status DC Lidocaine HCl 20 ml STK-MED ONCE .ROUTE ; Start 01/29/17 at 09:22; Stop at 09:23; Status DC Fentanyl Citrate (Fentanyl 2ml Vial) 100 mcg STK-MED ONCE .ROUTE ; Start at 09:36; Stop 01/29/17 at 09:37; Status DC Midazolam HCl (Versed) 2 mg STK-MED ONCE .ROUTE ; Start 01/29/17 at 09:36; Stop 01/29/17 at 09:37; Status DC Heparin Sodium/ Sodium Chloride 1,000 unit 1X ONCE IART Last administered on 01/29/17 10:16; Start 01/29/17 at 10:15; Stop 01/29/17 at 10:16; Status DC Midazolam HCl (Versed) 2 mg 1X ONCE IV Last administered on 01/29/17 10:17; Start 01/29/17 at 10:15; Stop 01/29/17 at 10:16; Status DC Fentanyl Citrate (Fentanyl 2ml Vial) 100 mcg 1X ONCE IV Last administered on 01/29/17 10:17; Start 01/29/17 at 10:15; Stop 01/29/17 at 10:16; Status DC Iohexol (Omnipaque 300 Mg/ml) 100 ml 1X ONCE IART Last administered on 10:16; Start 01/29/17 at 10:15; Stop 01/29/17 at 10:16; Status DC Lidocaine HCl 17 ml 1X ONCE IJ Last administered on 01/29/17 10:16; Start 01/29/17 at 10:15; Stop 01/29/17 at 10:16; Status DC Sodium Chloride (Normal Saline Flush) 3 ml QSHIFT PRN IV AFTER MEDS AND BLOOD DRAWS; Start 01/29/17 at 10:15; Stop 01/30/17 at 10:14; Status DC Nitroglycerin (Nitrostat) 0.4 mg PRN Q5MIN PRN SL CHEST PAIN; Start 01/29/17 at 10:15; Stop 01/30/17 at 10:14; Status DC Gemfibrozil (Lopid) 600 mg DAILY PO Last administered on 02/03/17 08:18; Start 01/29/17 at 12:30 Fish Oil (Fish Oil) 1,000 mg DAILY PO Last administered on 02/03/17 08:18; Start 01/29/17 at 12:30 Atorvastatin Calcium (Lipitor) 10 mg QHS PO Last administered on 02/02/17 20: 46; Start 01/29/17 at 21:00 Insulin Aspart (NovoLOG) 0-5 UNITS TIDWMEALS SQ Last administered on 11:41; Start 01/29/17 at 12:30; Stop 02/02/17 at 13:19; Status DC Dextrose (Dextrose 50%-Water Syringe) 12.5 gm PRN Q15MIN PRN IV SEE COMMENTS; Start 01/29/17 at 11:45 Pneumococcal Polyvalent Vaccine (Do NOT chart on this placeholder) 1 each PRN 1X PRN MC SEE COMMENTS; Start 01/29/17 at 12:30; Status UNV Pneumococcal Polyvalent Vaccine (Pneumovax 23) 0.5 ml ONCE ONCE VAX IM ; Start 01/29/17 at 13:00; Stop 01/29/17 at 13:01; Status DC Lisinopril (Prinivil) 10 mg DAILY PO ; Start 01/29/17 at 15:30; Stop 01/29/17 at 18:09; Status DC Metoprolol Tartrate (Lopressor) 25 mg BID PO Last administered on 02/03/17 08 :18; Start 01/29/17 at 21:00 Zolpidem Tartrate (Ambien) 5 mg PRN QHS PRN PO INSOMNIA, MAY REPEAT IN 1HR Last administered on 02/02/17 20:47; Start 01/29/17 at 18:15 Cefazolin Sodium/ Dextrose 50 ml @ 100 mls/hr 1X ONCE IV ; Start 01/30/17 at 06:00; Stop 01/30/17 at 06:29; Status DC Cefazolin Sodium/ Dextrose 50 ml @ 100 mls/hr 1X PREOP ONCE IV ; Start at 06:00; Stop 01/30/17 at 09:48; Status DC Ondansetron HCl (Zofran) 4 mg PRN Q6HRS PRN IV NAUSEA/VOMITING; Start at 07:00; Stop 02/01/17 at 06:59; Status DC Fentanyl Citrate (Fentanyl 2ml Vial) 25 mcg PRN Q5MIN PRN IV MILD PAIN; Start 01/31/17 at 07:00; Stop 02/01/17 at 06:59; Status DC Fentanyl Citrate (Fentanyl 2ml Vial) 50 mcg PRN Q5MIN PRN IV MODERATE PAIN; Start 01/31/17 at 07:00; Stop 02/01/17 at 06:59; Status DC Morphine Sulfate 1 mg PRN Q10MIN PRN IV SEVERE PAIN; Start 01/31/17 at 07:00; Stop 02/01/17 at 06:59; Status DC Ringer's Solution 1,000 ml @ 30 mls/hr Q24H IV Last administered on 15:25; Start 01/31/17 at 07:00; Stop 01/31/17 at 18:59; Status DC Lidocaine HCl (Xylocaine-Mpf 1% Vial) 2 ml PRN 1X PRN ID IV START; Start 01/31 at 07:00; Stop 02/01/17 at 06:59; Status DC Hydromorphone HCl (Dilaudid) 0.5 mg PRN Q10MIN PRN IV SEV PAIN, Second choice; Start 01/31/17 at 07:00; Stop 02/01/17 at 06:59; Status DC Prochlorperazine Edisylate (Compazine) 5 mg PACU PRN PRN IV NAUSEA, MRX1; Start 01/31/17 at 07:00; Stop 02/01/17 at 06:59; Status DC Heparin Sodium (Porcine) 30,000 unit STK-MED ONCE .ROUTE ; Start 01/31/17 at 06 :36; Stop 01/31/17 at 06:37; Status DC Rocuronium [place] (Zemuron) 100 mg STK-MED ONCE .ROUTE ; Start 01/31/17 at 06: 37; Stop 01/31/17 at 06:38; Status DC Ephedrine Sulfate (Akovaz) 50 mg STK-MED ONCE .ROUTE ; Start 01/31/17 at 06:37 ; Stop 01/31/17 at 06:38; Status DC Nitroglycerin/ Dextrose 250 ml @ As Directed STK-MED ONCE IV ; Start 01/31/17 at 06:39; Stop 01/31/17 at 06:40; Status DC Aminocaproic Acid (Amicar) 5,000 mg STK-MED ONCE IV ; Start 01/31/17 at 06:41; Stop 01/31/17 at 06:42; Status DC Etomidate (Amidate) 20 mg STK-MED ONCE IV ; Start 01/31/17 at 06:41; Stop at 06:42; Status DC Lidocaine HCl (Lidocaine Pf 2% Vial) 5 ml STK-MED ONCE .ROUTE ; Start 01/31/17 at 06:41; Stop 01/31/17 at 06:42; Status DC Phenylephrine HCl (Ramy-Synephrine Inj) 10 mg STK-MED ONCE .ROUTE ; Start at 06:41; Stop 01/31/17 at 06:42; Status DC Sufentanil Citrate (Sufenta) 100 mcg STK-MED ONCE .ROUTE ; Start 01/31/17 at 06 :42; Stop 01/31/17 at 06:43; Status DC Midazolam HCl (Versed) 2 mg STK-MED ONCE .ROUTE ; Start 01/31/17 at 06:43; Stop 01/31/17 at 06:44; Status DC Vancomycin HCl (Vanco) 10 gm STK-MED ONCE .ROUTE Last administered on 08:19; Start 01/31/17 at 07:10; Stop 01/31/17 at 07:11; Status DC Cellulose 1 each STK-MED ONCE .ROUTE Last administered on 01/31/17 08:19; Start 01/31/17 at 07:10; Stop 01/31/17 at 07:11; Status DC Papaverine HCl 60 mg STK-MED ONCE .ROUTE Last administered on 01/31/17 08:19 ; Start 01/31/17 at 07:10; Stop 01/31/17 at 07:11; Status DC Aspirin (Aspirin) 300 mg STK-MED ONCE .ROUTE Last administered on 01/31/17 14 :45; Start 01/31/17 at 07:10; Stop 01/31/17 at 07:11; Status DC Sodium Chloride (Sodium Chloride) 50 ml STK-MED ONCE IJ Last administered on 08:19; Start 01/31/17 at 07:10; Stop 01/31/17 at 07:11; Status DC Cefazolin Sodium/ Dextrose 50 ml @ As Directed STK-MED ONCE IV ; Start at 07:20; Stop 01/31/17 at 07:21; Status DC Albumin Human 200 ml @ As Directed STK-MED ONCE IV ; Start 01/31/17 at 07:27; Stop 01/31/17 at 07:28; Status DC Mannitol (Mannitol) 12.5 g STK-MED ONCE .ROUTE ; Start 01/31/17 at 07:28; Stop 01/31/17 at 07:29; Status DC Magnesium Sulfate 5 gm STK-MED ONCE .ROUTE ; Start 01/31/17 at 07:28; Stop at 07:29; Status DC Calcium Chloride 1,000 mg STK-MED ONCE IV ; Start 01/31/17 at 07:28; Stop at 07:29; Status DC Heparin Sodium (Porcine) 30,000 unit STK-MED ONCE .ROUTE ; Start 01/31/17 at 07 :29; Stop 01/31/17 at 07:30; Status DC Potassium Chloride 70 meq/ Sodium Bicarbonate 12.5 meq/Lidocaine HCl 24 ml/ Parenteral Electrolytes 571.5 ml @ 571.5 mls/ hr 1X PERIOP ONCE IRR ; Start 01/31/17 at 08:00; Stop 01/31/17 at 08:59; Status DC Potassium Chloride 15 meq/ Sodium Bicarbonate 12.5 meq/Parenteral Electrolytes 520 ml @ 520 mls/hr 1X PERIOP ONCE IRR ; Start 01/31/17 at 08:00; Stop 01/31 at 08:59; Status DC Heparin Sodium (Porcine) 51031 unit/Ringer's Solution 1,020 ml @ 1,020 mls/hr 1X PERIOP ONCE IRR Last administered on 01/31/17 08:19; Start 01/31/17 at 08:00; Stop 01/31/17 at 08:59; Status DC Cefazolin Sodium 1 gm/Sodium Chloride 500 ml @ 500 mls/hr 1X PERIOP ONCE IRR Last administered on 01/31/17 08:19; Start 01/31/17 at 08:00; Stop 01/31/17 at 08:59; Status DC Albumin Human 1,000 ml @ As Directed STK-MED ONCE IV ; Start 01/31/17 at 08:00 ; Stop 01/31/17 at 08:03; Status DC Heparin Sodium (Porcine) 800 unit/ Nitroglycerin 4 mg/Verapamil HCl 8 mg/Sodium Bicarbonate 0.34 meq/Ringer's Solution 512.34 ml @ 512.34 mls/hr 1X PERIOP ONCE IRR Last administered on 01/31/17 08:19; Start 01/31/17 at 08:30; Stop 01/31/17 at 09:29; Status DC Sufentanil Citrate (Sufenta) 100 mcg STK-MED ONCE .ROUTE ; Start 01/31/17 at 08 :16; Stop 01/31/17 at 08:17; Status DC Heparin Sodium (Porcine) (Heparin Sodium) 10,000 unit STK-MED ONCE .ROUTE ; Start 01/31/17 at 08:28; Stop 01/31/17 at 08:29; Status DC Rocuronium [place] (Zemuron) 100 mg STK-MED ONCE .ROUTE ; Start 01/31/17 at 08: 48; Stop 01/31/17 at 08:49; Status DC Sufentanil Citrate (Sufenta) 100 mcg STK-MED ONCE .ROUTE ; Start 01/31/17 at 09 :45; Stop 01/31/17 at 09:46; Status DC Norepinephrine Bitartrate 250 ml @ 1.875 mls/ hr 1X ONCE IV ; Start 01/31/17 at 10:15; Stop 02/02/17 at 13:15; Status DC Insulin Human Regular 150 unit/ Sodium Chloride 151.5 ml @ 0 mls/hr 1X ONCE IV ; Start 01/31/17 at 10:15; Stop 01/31/17 at 10:16; Status DC Cefazolin Sodium 100 ml @ As Directed STK-MED ONCE IV ; Start 01/31/17 at 10: 06; Stop 01/31/17 at 10:07; Status DC Rocuronium [place] (Zemuron) 100 mg STK-MED ONCE .ROUTE ; Start 01/31/17 at 11: 23; Stop 01/31/17 at 11:24; Status DC Midazolam HCl (Versed) 5 mg STK-MED ONCE .ROUTE ; Start 01/31/17 at 11:23; Stop 01/31/17 at 11:24; Status DC Midazolam HCl (Versed) 5 mg STK-MED ONCE .ROUTE ; Start 01/31/17 at 11:51; Stop 01/31/17 at 11:52; Status DC Sufentanil Citrate (Sufenta) 100 mcg STK-MED ONCE .ROUTE ; Start 01/31/17 at 12 :48; Stop 01/31/17 at 12:49; Status DC Rocuronium [place] (Zemuron) 50 mg STK-MED ONCE .ROUTE ; Start 01/31/17 at 13: 23; Stop 01/31/17 at 13:24; Status DC Mannitol (Mannitol) 12.5 g STK-MED ONCE .ROUTE ; Start 01/31/17 at 13:40; Stop 01/31/17 at 13:41; Status DC Clevidipine 100 ml @ 0 mls/hr CONT PRN IV PER PROTOCOL Last administered on t 15:57; Start 01/31/17 at 14:30; Stop 02/02/17 at 13:15; Status DC Sodium Chloride (Normal Saline Flush) 3 ml PRN Q12HR PRN IV AFTER MEDS AND BLOOD DRAWS; Start 01/31/17 at 15:00 Ringer's Solution 1,000 ml @ 30 mls/hr Q24H IV Last administered on 18:02; Start 01/31/17 at 14:51 Albumin Human 250 ml @ 60 mls/hr PRN Q4HRS PRN IV SEE I/O RECORD Last administered on 02/01/17 20:13; Start 01/31/17 at 15:00 Insulin Human Regular 150 unit/ Sodium Chloride 151.5 ml @ 0 mls/hr CONT PRN PRN IV SEE I/O RECORD Last administered on 02/01/17 19:36; Start 01/31/17 at 15:00 Dextrose (Dextrose 50%-Water Syringe) 25 gm PRN Q15MIN PRN IV LOW BLOOD SUGAR; Start 01/31/17 at 15:00 Amiodarone HCl 150 mg/Dextrose 103 ml @ 200 mls/hr STAT STAT IV Last administered on 01/31/17 15:16; Start 01/31/17 at 14:51; Stop 01/31/17 at 15 :24; Status DC Amiodarone HCl 900 mg/Dextrose 518 ml @ 33.33 mls/ hr CONT PRN IV I/O Last administered on 01/31/17 15:16; Start 01/31/17 at 15:00; Stop 02/02/17 at 13 :15; Status DC Info 1 ea CONT PRN PRN MC SEE COMMENTS; Start 01/31/17 at 15:00 Info 1 ea CONT PRN PRN MC SEE COMMENTS; Start 01/31/17 at 15:00; Stop at 13:15; Status DC Magnesium Sulfate/ Dextrose 100 ml @ 100 mls/hr PRN DAILY PRN IV FOR MAG < 2.2 ; Start 01/31/17 at 15:00 Famotidine (Pepcid Vial) 20 mg BID IVP Last administered on 02/03/17 08:20; Start 01/31/17 at 21:00 Ondansetron HCl (Zofran) 4 mg PRN Q4HRS PRN IV NAUSEA/VOMITING Last administered on 02/02/17 18:53; Start 01/31/17 at 15:00 Prochlorperazine Edisylate (Compazine) 10 mg PRN Q6HRS PRN IV NAUSEA/VOMITING ( 2ND Choice); Start 01/31/17 at 15:00 Morphine Sulfate 2 mg PRN Q1HR PRN IV PAIN Last administered on 02/01/17 01: 09; Start 01/31/17 at 15:00 Acetaminophen (Tylenol) 650 mg PRN Q4HRS PRN PO MILD PAIN / TEMP; Start at 15:00 Acetaminophen (Acetaminophen Supp) 650 mg PRN Q4HRS PRN RI MILD PAIN / TEMP; Start 01/31/17 at 15:00 Meperidine HCl (Demerol) 12.5 mg PRN Q15MIN PRN IV SHIVERING; Start 01/31/17 at 15:00; Stop 02/01/17 at 14:51; Status DC Propofol 100 ml @ 0 mls/hr CONT PRN PRN IV POSTOP SEDATION UNTIL EXTUBATE; Start 01/31/17 at 15:00; Stop 02/02/17 at 13:16; Status DC Bisacodyl (Dulcolax Supp) 10 mg PRN DAILY PRN RI NO BOWEL MOVEMENT; Start at 15:00 Aspirin (Ecotrin) 325 mg DAILYWBKFT PO Last administered on 02/03/17 08:20; Start 01/31/17 at 16:00 Albuterol Sulfate (Ventolin Neb Soln) 2.5 mg PRN Q4HRS PRN NEB SHORTNESS OF BREATH; Start 01/31/17 at 15:00 Metoprolol Tartrate (Lopressor) 25 mg BID PO ; Start 01/31/17 at 16:00; Stop 02/02/17 at 13:16; Status DC Nicardipine HCl 50 mg/Sodium Chloride 270 ml @ 0 mls/hr CONT PRN PRN IV PER PROTOCOL; Start 01/31/17 at 15:00; Stop 02/02/17 at 13:16; Status DC Oxycodone/ Acetaminophen (Percocet 5/325) 1 tab PRN Q4HRS PRN PO MILD PAIN Last administered on 02/02/17 08:05; Start 01/31/17 at 15:00 Oxycodone/ Acetaminophen (Percocet 5/325) 2 tab PRN Q4HRS PRN PO MODERATE PAIN , SEVERE PAIN Last administered on 02/03/17 11:39; Start 01/31/17 at 15:00 Cefazolin Sodium/ Dextrose 50 ml @ 100 mls/hr Q8H IV Last administered on 06:24; Start 01/31/17 at 22:00; Stop 02/02/17 at 06:29; Status DC Polyethylene Glycol (miraLAX PACKET) 17 gm QHS PO Last administered on 20:47; Start 02/01/17 at 21:00 Morphine Sulfate 1 mg PRN Q10MIN PRN IV PAIN; Start 01/31/17 at 15:15; Stop 02/02/17 at 15:36; Status DC Morphine Sulfate 10 mg STK-MED ONCE .ROUTE ; Start 01/31/17 at 15:09; Stop at 15:10; Status DC Magnesium Sulfate/ Dextrose 50 ml @ 25 mls/hr 1X ONCE IV Last administered on 01/31/17 17:55; Start 01/31/17 at 17:45; Stop 01/31/17 at 19:44; Status DC Potassium Chloride 50 ml @ 50 mls/hr 1X ONCE IV Last administered on 17:54; Start 01/31/17 at 17:45; Stop 01/31/17 at 18:44; Status DC Sodium Bicarbonate 50 meq 1X ONCE IV Last administered on 01/31/17 20:39; Start 01/31/17 at 20:30; Stop 01/31/17 at 20:31; Status DC Potassium Chloride 50 ml @ 50 mls/hr 1X ONCE IV Last administered on 22:18; Start 01/31/17 at 22:15; Stop 01/31/17 at 23:14; Status DC Ketorolac Tromethamine (Toradol) 15 mg Q6H IV Last administered on 02/02/17 11:27; Start 01/31/17 at 23:00; Stop 02/02/17 at 12:44; Status DC Potassium Chloride 50 ml @ 50 mls/hr 1X ONCE IV Last administered on 07:59; Start 02/01/17 at 08:00; Stop 02/01/17 at 08:59; Status DC Magnesium Sulfate/ Dextrose 50 ml @ 25 mls/hr 1X ONCE IV Last administered on 02/01/17 07:59; Start 02/01/17 at 08:00; Stop 02/01/17 at 09:59; Status DC Morphine Sulfate 10 mg STK-MED ONCE .ROUTE ; Start 01/31/17 at 15:00; Stop at 08:40; Status DC Furosemide (Lasix) 20 mg 1X ONCE IVP Last administered on 02/01/17 13:25; Start 02/01/17 at 11:45; Stop 02/01/17 at 11:46; Status DC Amiodarone HCl (Cordarone) 200 mg BID PO Last administered on 02/03/17 08:19 ; Start 02/01/17 at 16:00 Magnesium Sulfate/ Dextrose 100 ml @ 100 mls/hr 1X ONCE IV Last administered on 02/01/17 22:50; Start 02/01/17 at 21:15; Stop 02/01/17 at 22:14; Status DC Potassium Chloride 50 ml @ 50 mls/hr Q1H IV Last administered on 02/01/17 23: 25; Start 02/01/17 at 21:15; Stop 02/01/17 at 23:14; Status DC Albumin Human 500 ml @ 250 mls/hr 1X ONCE IV Last administered on 02/02/17 01:29; Start 02/02/17 at 01:30; Stop 02/02/17 at 03:29; Status DC Albumin Human 250 ml @ 62.5 mls/hr 1X ONCE IV Last administered on 06:24; Start 02/02/17 at 05:45; Stop 02/02/17 at 09:44; Status DC Potassium Chloride 50 ml @ 50 mls/hr 1X ONCE IV Last administered on 12:19; Start 02/02/17 at 11:00; Stop 02/02/17 at 11:59; Status DC Magnesium Sulfate/ Dextrose 50 ml @ 25 mls/hr 1X ONCE IV Last administered on 02/02/17 12:19; Start 02/02/17 at 11:00; Stop 02/02/17 at 12:59; Status DC Albumin Human 250 ml @ 62.5 mls/hr 1X ONCE IV Last administered on 12:31; Start 02/02/17 at 12:00; Stop 02/02/17 at 15:59; Status DC Sodium Chloride 1,000 ml @ 75 mls/hr [id number] IV Last administered on 01:20; Start 02/02/17 at 12:00 Insulin Aspart (NovoLOG) 0-7 UNITS TIDWMEALS SQ Last administered on 12:33; Start 02/02/17 at 17:00 Sodium Chloride 1,000 ml @ 75 mls/hr [id number] IV Last administered on 06:21; Start 02/02/17 at 17:30 Active Scripts Active Reported Gemfibrozil 600 Mg Tablet 1 Tab PO DAILY Xigduo Xr 5 mg-500 mg Tablet (Dapagliflozin/Metformin HCl) 1 Each Tab.bp.24h 1 Each PO BID [place] 3 Fish Oil Softgel ([place]-3 Fatty Acids/Fish Oil) 1 Each Capsule.dr 1 Each PO DAILY Pravastatin Sodium 40 Mg Tablet 40 Mg PO DAILY Lisinopril 10 Mg Tablet 10 Mg PO DAILY Vitals/I & O Vital Sign - Last 24 Hours 02/02/17 02/02/17 02/02/17 02/02/17 15:00 15:24 19:00 19:50 Temp 98.6 98.4 98.6 98.4 Pulse 81 82 Resp 20 16 B/P (MAP) 125/75 (92) 112/68 (83) Pulse Ox 96 91 O2 Delivery Room Air Room Air Room Air Room Air O2 Flow Rate 2.0 02/02/17 02/02/17 02/02/17 02/02/17 20:46 20:47 22:33 22:33 Temp 97.7 97.7 Pulse 82 82 77 Resp 16 16 B/P (MAP) 112/68 112/68 101/65 (77) Pulse Ox 95 95 O2 Delivery Room Air Room Air 02/02/17 02/03/17 02/03/17 02/03/17 23:35 06:22 06:29 07:51 Temp 98.8 98.8 Pulse 75 Resp 16 16 16 B/P (MAP) 122/71 (88) Pulse Ox 92 92 92 O2 Delivery Room Air Room Air Room Air O2 Flow Rate 2.0 02/03/17 02/03/17 02/03/17 02/03/17 08:18 08:19 08:49 11:13 Temp 99.7 99.7 Pulse 75 75 70 Resp 17 B/P (MAP) 122/71 122/71 107/61 (76) Pulse Ox 91 O2 Delivery Room Air Room Air 02/03/17 11:39 Resp 16 Pulse Ox 91 O2 Delivery Room Air O2 Flow Rate 2.0 Intake and Output 02/03/17 02/03/17 02/04/17 15:00 23:00 07:00 Intake Total 400 ml Balance 400 ml ASIF BOWDEN MD Feb 03, 2017 12:56
--- NOTE | 2017-02-03 14:18 | PDOC ---
Progress Note Subjective Subjective Doing very well. Normotensive and in sinus rhythm. Minimal pain. Improved po intake ROS ROS No nausea No vomiting No SOB No pain No rash Vital Sign Vital Signs Vital Signs Date Time Temp Pulse Resp B/P (MAP) Pulse Ox O2 Delivery O2 Flow Rate FiO2 02/03/17 13:09 16 91 Room Air 2.0 02/03/17 11:13 99.7 70 107/61 (76) 99.7 Physical Exam PHYSICAL EXAM GENERAL: NAD, Alert HEENT: PERRL, OC/OP NECK: Supple, no JVD, no LN LUNGS: Clear HEART: S1S2, no gallop, no murmur INCISIONS: intact, clean ABD: Soft, NT, no organomegaly, no rebound EXT: No edema, no cyanosis REALTIME CAPTIONER: Alert, oriented x 3, no focal neurologic deficit SKIN: No rash IV: ok Labs Lab Laboratory Tests Test 02/02/17 17:16 02/02/17 20:44 02/03/17 12:28 Glucose (Fingerstick) 111 mg/dL (70-99) 200 mg/dL (70-99) 195 mg/dL (70-99) Objective Assessment POD#3, s/p CABG x 4 (AMAYA to LAD, radial to D1, SVG to OM, SVG to RPDA) Doing very well. Normotensive and in sinus rhythm. Minimal pain. Improved po intake Plan Plan of Care D/c IV fluids Oral amiodarone for A. fib prophylaxis, stop before discharge ASA, b gallo and statin Ambulation and pulmonary toilet OK to shower D/c home Sunday, or tomorrow if he would like Bowel regimen SB MOMIN MD Feb 03, 2017 14:18
[2017-02-03] MEDS: IV RINGERS,LACTATED 1000ML 1,000 ML IV SCH (14:51)
--- NOTE | 2017-02-03 14:54 | RAD ---
AP PORTABLE CHEST Clinical Indication: s/p CABG 01/31. Comparison: AP chest, 2 days ago.. Findings: Right IJ sheath has been removed. Mediastinal drain and left chest tubes have been removed. Stable median sternotomy wires and changes of CABG. The cardiomediastinal silhouette is unchanged. Mild bibasilar airspace disease is probably atelectasis. There are small bilateral pleural effusions. There is no pneumothorax. IMPRESSION: 1. Removal of tubes and lines. 2. Small bilateral pleural effusions. Mild bibasilar atelectasis.
[2017-02-03 15:10] VITALS: BP 123/69
[2017-02-03] MEDS: SENNOSIDES/DOCUSATE 8.6/50MG TABLET. PO PRN (16:13)
[2017-02-03 18:19] VITALS: BP 119/71
[2017-02-03] MEDS: ONDANSETRON PF 4 MG/2 ML VIAL. IV PRN (19:14)
[2017-02-03] MEDS: ATORVASTATIN CALCIUM 10 MG TABLET. PO SCH (20:17)
[2017-02-03] MEDS: POLYETHYLENE GLYCOL 3350 17 GM PACKET. PO SCH (20:17)
[2017-02-03] MEDS: ZOLPIDEM 5 MG TABLET. PO PRN (20:17)
[2017-02-03 22:56] VITALS: BP 116/68
[2017-02-04 03:00] VITALS: BP 113/66
[2017-02-04 05:25] LABS: BASO % 1 % (0-3); EOS % 2 % (0-3); HEMATOCRIT 32.8 % (39.0-53.0); LYMPH # 1.6 x10^3/uL (1.0-4.8); LYMPH % 30 % (24-48); MEAN CORPUSCULAR HEMOGLOBIN 30 pg (25-35); MEAN CORPUSCULAR HGB CONC 34 g/dL (31-37); MEAN CORPUSCULAR VOLUME 88 fL (79-100); MONO % 10 % (0-9); NEUT % 58 % (31-73); PLATELET COUNT 119 x10^3/uL (140-400); RED BLOOD COUNT 3.72 x10^6/uL (4.30-5.70); WHITE BLOOD COUNT 5.2 x10^3/uL (4.0-11.0)
[2017-02-04 06:02] LABS: CALCIUM 8.6 mg/dL (8.5-10.1); CREATININE 0.7 mg/dL (0.7-1.3); GFR 118.4; POTASSIUM 3.8 mmol/L (3.5-5.1)
[2017-02-04 06:23] VITALS: BP 105/68
[2017-02-04] MEDS: INSULIN ASPART 300 UNITS/3 ML INSULN.PEN SQ SCH ×3 (08:00→17:00)
[2017-02-04] MEDS: SENNOSIDES/DOCUSATE 8.6/50MG TABLET. PO PRN (08:26)
[2017-02-04] MEDS: OMEGA-3 FATTY ACIDS/FISH OIL 1,000 MG CAPSULE. PO SCH (08:26)
[2017-02-04] MEDS: ASPIRIN ENTERIC COATED 325 MG TABLET.DR. PO SCH (08:26)
[2017-02-04] MEDS: GEMFIBROZIL 600 MG TABLET. PO SCH (08:26)
[2017-02-04] MEDS: AMIODARONE HCL 200 MG TABLET. PO SCH ×2 (08:27→20:56)
[2017-02-04] MEDS: oxyCODONE/APAP 5/325 1 TAB TABLET PO PRN (08:28)
[2017-02-04] MEDS: FAMOTIDINE 20 MG/2 ML VIAL IVP SCH (08:32)
[2017-02-04] MEDS: METOPROLOL TART IMMED RELEASE 25 MG TABLET. PO SCH ×2 (10:02→20:55)
[2017-02-04 11:00] VITALS: BP 130/73
--- NOTE | 2017-02-04 11:57 | PDOC ---
PROGRESS NOTES Subjective Subjective Patient is ambulating more today. His BP was a little low earlier. Objective Objective Vital Signs Date Time Temp Pulse Resp B/P (MAP) Pulse Ox O2 Delivery O2 Flow Rate FiO2 02/04/17 10:02 82 135/72 02/04/17 09:28 18 96 Room Air 02/04/17 06:23 98.7 98.7 02/03/17 17:16 2.0 Physical Exam Physical Exam No significant changes in cardiac exam Assessment Assessment The patient seems to be improving. I'm going to decrease the metoprolol to 12.5 mg because of the labile blood pressure. If stable may go home in a.m. Comment Review of Relevant I have reviewed the following items nguyễn (where applicable) has been applied. Labs Laboratory Tests Test 02/02/17 13:01 02/02/17 17:16 02/02/17 20:44 02/03/17 08:16 Glucose (Fingerstick) 133 mg/dL (70-99) 111 mg/dL (70-99) 200 mg/dL (70-99) 109 mg/dL (70-99) Test 02/03/17 12:28 02/03/17 17:20 02/03/17 20:16 02/04/17 03:00 Glucose (Fingerstick) 195 mg/dL (70-99) 131 mg/dL (70-99) 157 mg/dL (70-99) White Blood Count 5.2 x10^3/uL (4.0-11.0) Red Blood Count 3.72 x10^6/uL (4.30-5.70) Hemoglobin 11.0 g/dL (13.0-17.5) Hematocrit 32.8 % (39.0-53.0) Mean Corpuscular Volume 88 fL (79-100) Mean Corpuscular Hemoglobin 30 pg (25-35) Mean Corpuscular Hemoglobin Concent 34 g/dL (31-37) Red Cell Distribution Width 14.0 % (11.5-14.5) Platelet Count 119 x10^3/uL (140-400) Neutrophils (%) (Auto) 58 % (31-73) Lymphocytes (%) (Auto) 30 % (24-48) Monocytes (%) (Auto) 10 % (0-9) Eosinophils (%) (Auto) 2 % (0-3) Basophils (%) (Auto) 1 % (0-3) Neutrophils # (Auto) 3.0 x10^3uL (1.8-7.7) Lymphocytes # (Auto) 1.6 x10^3/uL (1.0-4.8) Monocytes # (Auto) 0.5 x10^3/uL (0.0-1.1) Eosinophils # (Auto) 0.1 x10^3/uL (0.0-0.7) Basophils # (Auto) 0.0 x10^3/uL (0.0-0.2) Sodium Level 139 mmol/L (136-145) Potassium Level 3.8 mmol/L (3.5-5.1) Chloride Level 103 mmol/L (98-107) Carbon Dioxide Level 30 mmol/L (21-32) Anion Gap 6 (6-14) Blood Urea Nitrogen 10 mg/dL (8-26) Creatinine 0.7 mg/dL (0.7-1.3) Estimated GFR (Cockcroft-Gault) 118.4 Glucose Level 150 mg/dL (70-99) Calcium Level 8.6 mg/dL (8.5-10.1) Test 02/04/17 07:42 02/04/17 11:50 Glucose (Fingerstick) 129 mg/dL (70-99) 194 mg/dL (70-99) Laboratory Tests Test 02/03/17 12:28 02/03/17 17:20 02/03/17 20:16 02/04/17 03:00 Glucose (Fingerstick) 195 mg/dL (70-99) 131 mg/dL (70-99) 157 mg/dL (70-99) White Blood Count 5.2 x10^3/uL (4.0-11.0) Red Blood Count 3.72 x10^6/uL (4.30-5.70) Hemoglobin 11.0 g/dL (13.0-17.5) Hematocrit 32.8 % (39.0-53.0) Mean Corpuscular Volume 88 fL (79-100) Mean Corpuscular Hemoglobin 30 pg (25-35) Mean Corpuscular Hemoglobin Concent 34 g/dL (31-37) Red Cell Distribution Width 14.0 % (11.5-14.5) Platelet Count 119 x10^3/uL (140-400) Neutrophils (%) (Auto) 58 % (31-73) Lymphocytes (%) (Auto) 30 % (24-48) Monocytes (%) (Auto) 10 % (0-9) Eosinophils (%) (Auto) 2 % (0-3) Basophils (%) (Auto) 1 % (0-3) Neutrophils # (Auto) 3.0 x10^3uL (1.8-7.7) Lymphocytes # (Auto) 1.6 x10^3/uL (1.0-4.8) Monocytes # (Auto) 0.5 x10^3/uL (0.0-1.1) Eosinophils # (Auto) 0.1 x10^3/uL (0.0-0.7) Basophils # (Auto) 0.0 x10^3/uL (0.0-0.2) Sodium Level 139 mmol/L (136-145) Potassium Level 3.8 mmol/L (3.5-5.1) Chloride Level 103 mmol/L (98-107) Carbon Dioxide Level 30 mmol/L (21-32) Anion Gap 6 (6-14) Blood Urea Nitrogen 10 mg/dL (8-26) Creatinine 0.7 mg/dL (0.7-1.3) Estimated GFR (Cockcroft-Gault) 118.4 Glucose Level 150 mg/dL (70-99) Calcium Level 8.6 mg/dL (8.5-10.1) Test 02/04/17 07:42 02/04/17 11:50 Glucose (Fingerstick) 129 mg/dL (70-99) 194 mg/dL (70-99) Medications Current Medications Heparin Sodium/ Sodium Chloride 500 ml @ As Directed STK-MED ONCE .ROUTE ; Start 01/29/17 at 09:21; Stop 01/29/17 at 09:22; Status DC Iohexol (Omnipaque 300 Mg/ml) 100 ml STK-MED ONCE .ROUTE ; Start 01/29/17 at 09 :22; Stop 01/29/17 at 09:23; Status DC Lidocaine HCl 20 ml STK-MED ONCE .ROUTE ; Start 01/29/17 at 09:22; Stop at 09:23; Status DC Fentanyl Citrate (Fentanyl 2ml Vial) 100 mcg STK-MED ONCE .ROUTE ; Start at 09:36; Stop 01/29/17 at 09:37; Status DC Midazolam HCl (Versed) 2 mg STK-MED ONCE .ROUTE ; Start 01/29/17 at 09:36; Stop 01/29/17 at 09:37; Status DC Heparin Sodium/ Sodium Chloride 1,000 unit 1X ONCE IART Last administered on 01/29/17 10:16; Start 01/29/17 at 10:15; Stop 01/29/17 at 10:16; Status DC Midazolam HCl (Versed) 2 mg 1X ONCE IV Last administered on 01/29/17 10:17; Start 01/29/17 at 10:15; Stop 01/29/17 at 10:16; Status DC Fentanyl Citrate (Fentanyl 2ml Vial) 100 mcg 1X ONCE IV Last administered on 01/29/17 10:17; Start 01/29/17 at 10:15; Stop 01/29/17 at 10:16; Status DC Iohexol (Omnipaque 300 Mg/ml) 100 ml 1X ONCE IART Last administered on 10:16; Start 01/29/17 at 10:15; Stop 01/29/17 at 10:16; Status DC Lidocaine HCl 17 ml 1X ONCE IJ Last administered on 01/29/17 10:16; Start 01/29/17 at 10:15; Stop 01/29/17 at 10:16; Status DC Sodium Chloride (Normal Saline Flush) 3 ml QSHIFT PRN IV AFTER MEDS AND BLOOD DRAWS; Start 01/29/17 at 10:15; Stop 01/30/17 at 10:14; Status DC Nitroglycerin (Nitrostat) 0.4 mg PRN Q5MIN PRN SL CHEST PAIN; Start 01/29/17 at 10:15; Stop 01/30/17 at 10:14; Status DC Gemfibrozil (Lopid) 600 mg DAILY PO Last administered on 02/04/17 08:26; Start 01/29/17 at 12:30 Fish Oil (Fish Oil) 1,000 mg DAILY PO Last administered on 02/04/17 08:26; Start 01/29/17 at 12:30 Atorvastatin Calcium (Lipitor) 10 mg QHS PO Last administered on 02/03/17 20: 17; Start 01/29/17 at 21:00 Insulin Aspart (NovoLOG) 0-5 UNITS TIDWMEALS SQ Last administered on 11:41; Start 01/29/17 at 12:30; Stop 02/02/17 at 13:19; Status DC Dextrose (Dextrose 50%-Water Syringe) 12.5 gm PRN Q15MIN PRN IV SEE COMMENTS; Start 01/29/17 at 11:45 Pneumococcal Polyvalent Vaccine (Do NOT chart on this placeholder) 1 each PRN 1X PRN MC SEE COMMENTS; Start 01/29/17 at 12:30; Status UNV Pneumococcal Polyvalent Vaccine (Pneumovax 23) 0.5 ml ONCE ONCE VAX IM Last administered on 02/03/17 16:18; Start 01/29/17 at 13:00; Stop 01/29/17 at 13 :01; Status DC Lisinopril (Prinivil) 10 mg DAILY PO ; Start 01/29/17 at 15:30; Stop 01/29/17 at 18:09; Status DC Metoprolol Tartrate (Lopressor) 25 mg BID PO Last administered on 02/04/17 10 :02; Start 01/29/17 at 21:00 Zolpidem Tartrate (Ambien) 5 mg PRN QHS PRN PO INSOMNIA, MAY REPEAT IN 1HR Last administered on 02/03/17 20:17; Start 01/29/17 at 18:15 Cefazolin Sodium/ Dextrose 50 ml @ 100 mls/hr 1X ONCE IV ; Start 01/30/17 at 06:00; Stop 01/30/17 at 06:29; Status DC Cefazolin Sodium/ Dextrose 50 ml @ 100 mls/hr 1X PREOP ONCE IV ; Start at 06:00; Stop 01/30/17 at 09:48; Status DC Ondansetron HCl (Zofran) 4 mg PRN Q6HRS PRN IV NAUSEA/VOMITING; Start at 07:00; Stop 02/01/17 at 06:59; Status DC Fentanyl Citrate (Fentanyl 2ml Vial) 25 mcg PRN Q5MIN PRN IV MILD PAIN; Start 01/31/17 at 07:00; Stop 02/01/17 at 06:59; Status DC Fentanyl Citrate (Fentanyl 2ml Vial) 50 mcg PRN Q5MIN PRN IV MODERATE PAIN; Start 01/31/17 at 07:00; Stop 02/01/17 at 06:59; Status DC Morphine Sulfate 1 mg PRN Q10MIN PRN IV SEVERE PAIN; Start 01/31/17 at 07:00; Stop 02/01/17 at 06:59; Status DC Ringer's Solution 1,000 ml @ 30 mls/hr Q24H IV Last administered on t 15:25; Start 01/31/17 at 07:00; Stop 01/31/17 at 18:59; Status DC Lidocaine HCl (Xylocaine-Mpf 1% Vial) 2 ml PRN 1X PRN ID IV START; Start 01/31 at 07:00; Stop 02/01/17 at 06:59; Status DC Hydromorphone HCl (Dilaudid) 0.5 mg PRN Q10MIN PRN IV SEV PAIN, Second choice; Start 01/31/17 at 07:00; Stop 02/01/17 at 06:59; Status DC Prochlorperazine Edisylate (Compazine) 5 mg PACU PRN PRN IV NAUSEA, MRX1; Start 01/31/17 at 07:00; Stop 02/01/17 at 06:59; Status DC Heparin Sodium (Porcine) 30,000 unit STK-MED ONCE .ROUTE ; Start 01/31/17 at 06 :36; Stop 01/31/17 at 06:37; Status DC Rocuronium [place] (Zemuron) 100 mg STK-MED ONCE .ROUTE ; Start 01/31/17 at 06: 37; Stop 01/31/17 at 06:38; Status DC Ephedrine Sulfate (Akovaz) 50 mg STK-MED ONCE .ROUTE ; Start 01/31/17 at 06:37 ; Stop 01/31/17 at 06:38; Status DC Nitroglycerin/ Dextrose 250 ml @ As Directed STK-MED ONCE IV ; Start 01/31/17 at 06:39; Stop 01/31/17 at 06:40; Status DC Aminocaproic Acid (Amicar) 5,000 mg STK-MED ONCE IV ; Start 01/31/17 at 06:41; Stop 01/31/17 at 06:42; Status DC Etomidate (Amidate) 20 mg STK-MED ONCE IV ; Start 01/31/17 at 06:41; Stop at 06:42; Status DC Lidocaine HCl (Lidocaine Pf 2% Vial) 5 ml STK-MED ONCE .ROUTE ; Start 01/31/17 at 06:41; Stop 01/31/17 at 06:42; Status DC Phenylephrine HCl (Ramy-Synephrine Inj) 10 mg STK-MED ONCE .ROUTE ; Start at 06:41; Stop 01/31/17 at 06:42; Status DC Sufentanil Citrate (Sufenta) 100 mcg STK-MED ONCE .ROUTE ; Start 01/31/17 at 06 :42; Stop 01/31/17 at 06:43; Status DC Midazolam HCl (Versed) 2 mg STK-MED ONCE .ROUTE ; Start 01/31/17 at 06:43; Stop 01/31/17 at 06:44; Status DC Vancomycin HCl (Vanco) 10 gm STK-MED ONCE .ROUTE Last administered on 08:19; Start 01/31/17 at 07:10; Stop 01/31/17 at 07:11; Status DC Cellulose 1 each STK-MED ONCE .ROUTE Last administered on 01/31/17 08:19; Start 01/31/17 at 07:10; Stop 01/31/17 at 07:11; Status DC Papaverine HCl 60 mg STK-MED ONCE .ROUTE Last administered on 01/31/17 08:19 ; Start 01/31/17 at 07:10; Stop 01/31/17 at 07:11; Status DC Aspirin (Aspirin) 300 mg STK-MED ONCE .ROUTE Last administered on 01/31/17 14 :45; Start 01/31/17 at 07:10; Stop 01/31/17 at 07:11; Status DC Sodium Chloride (Sodium Chloride) 50 ml STK-MED ONCE IJ Last administered on 08:19; Start 01/31/17 at 07:10; Stop 01/31/17 at 07:11; Status DC Cefazolin Sodium/ Dextrose 50 ml @ As Directed STK-MED ONCE IV ; Start at 07:20; Stop 01/31/17 at 07:21; Status DC Albumin Human 200 ml @ As Directed STK-MED ONCE IV ; Start 01/31/17 at 07:27; Stop 01/31/17 at 07:28; Status DC Mannitol (Mannitol) 12.5 g STK-MED ONCE .ROUTE ; Start 01/31/17 at 07:28; Stop 01/31/17 at 07:29; Status DC Magnesium Sulfate 5 gm STK-MED ONCE .ROUTE ; Start 01/31/17 at 07:28; Stop at 07:29; Status DC Calcium Chloride 1,000 mg STK-MED ONCE IV ; Start 01/31/17 at 07:28; Stop at 07:29; Status DC Heparin Sodium (Porcine) 30,000 unit STK-MED ONCE .ROUTE ; Start 01/31/17 at 07 :29; Stop 01/31/17 at 07:30; Status DC Potassium Chloride 70 meq/ Sodium Bicarbonate 12.5 meq/Lidocaine HCl 24 ml/ Parenteral Electrolytes 571.5 ml @ 571.5 mls/ hr 1X PERIOP ONCE IRR ; Start 01/31/17 at 08:00; Stop 01/31/17 at 08:59; Status DC Potassium Chloride 15 meq/ Sodium Bicarbonate 12.5 meq/Parenteral Electrolytes 520 ml @ 520 mls/hr 1X PERIOP ONCE IRR ; Start 01/31/17 at 08:00; Stop 01/31 at 08:59; Status DC Heparin Sodium (Porcine) 04777 unit/Ringer's Solution 1,020 ml @ 1,020 mls/hr 1X PERIOP ONCE IRR Last administered on 01/31/17 08:19; Start 01/31/17 at 08:00; Stop 01/31/17 at 08:59; Status DC Cefazolin Sodium 1 gm/Sodium Chloride 500 ml @ 500 mls/hr 1X PERIOP ONCE IRR Last administered on 01/31/17 08:19; Start 01/31/17 at 08:00; Stop 01/31/17 at 08:59; Status DC Albumin Human 1,000 ml @ As Directed STK-MED ONCE IV ; Start 01/31/17 at 08:00 ; Stop 01/31/17 at 08:03; Status DC Heparin Sodium (Porcine) 800 unit/ Nitroglycerin 4 mg/Verapamil HCl 8 mg/Sodium Bicarbonate 0.34 meq/Ringer's Solution 512.34 ml @ 512.34 mls/hr 1X PERIOP ONCE IRR Last administered on 01/31/17t 08:19; Start 01/31/17 at 08:30; Stop 01/31/17 at 09:29; Status DC Sufentanil Citrate (Sufenta) 100 mcg STK-MED ONCE .ROUTE ; Start 01/31/17 at 08 :16; Stop 01/31/17 at 08:17; Status DC Heparin Sodium (Porcine) (Heparin Sodium) 10,000 unit STK-MED ONCE .ROUTE ; Start 01/31/17 at 08:28; Stop 01/31/17 at 08:29; Status DC Rocuronium [place] (Zemuron) 100 mg STK-MED ONCE .ROUTE ; Start 01/31/17 at 08: 48; Stop 01/31/17 at 08:49; Status DC Sufentanil Citrate (Sufenta) 100 mcg STK-MED ONCE .ROUTE ; Start 01/31/17 at 09 :45; Stop 01/31/17 at 09:46; Status DC Norepinephrine Bitartrate 250 ml @ 1.875 mls/ hr 1X ONCE IV ; Start 01/31/17 at 10:15; Stop 02/02/17 at 13:15; Status DC Insulin Human Regular 150 unit/ Sodium Chloride 151.5 ml @ 0 mls/hr 1X ONCE IV ; Start 01/31/17 at 10:15; Stop 01/31/17 at 10:16; Status DC Cefazolin Sodium 100 ml @ As Directed STK-MED ONCE IV ; Start 01/31/17 at 10: 06; Stop 01/31/17 at 10:07; Status DC Rocuronium [place] (Zemuron) 100 mg STK-MED ONCE .ROUTE ; Start 01/31/17 at 11: 23; Stop 01/31/17 at 11:24; Status DC Midazolam HCl (Versed) 5 mg STK-MED ONCE .ROUTE ; Start 01/31/17 at 11:23; Stop 01/31/17 at 11:24; Status DC Midazolam HCl (Versed) 5 mg STK-MED ONCE .ROUTE ; Start 01/31/17 at 11:51; Stop 01/31/17 at 11:52; Status DC Sufentanil Citrate (Sufenta) 100 mcg STK-MED ONCE .ROUTE ; Start 01/31/17 at 12 :48; Stop 01/31/17 at 12:49; Status DC Rocuronium [place] (Zemuron) 50 mg STK-MED ONCE .ROUTE ; Start 01/31/17 at 13: 23; Stop 01/31/17 at 13:24; Status DC Mannitol (Mannitol) 12.5 g STK-MED ONCE .ROUTE ; Start 01/31/17 at 13:40; Stop 01/31/17 at 13:41; Status DC Clevidipine 100 ml @ 0 mls/hr CONT PRN IV PER PROTOCOL Last administered on 15:57; Start 01/31/17 at 14:30; Stop 02/02/17 at 13:15; Status DC Sodium Chloride (Normal Saline Flush) 3 ml PRN Q12HR PRN IV AFTER MEDS AND BLOOD DRAWS; Start 01/31/17 at 15:00 Ringer's Solution 1,000 ml @ 30 mls/hr Q24H IV Last administered on 18:02; Start 01/31/17 at 14:51; Stop 02/03/17 at 17:16; Status DC Albumin Human 250 ml @ 60 mls/hr PRN Q4HRS PRN IV SEE I/O RECORD Last administered on 02/01/17 20:13; Start 01/31/17 at 15:00 Insulin Human Regular 150 unit/ Sodium Chloride 151.5 ml @ 0 mls/hr CONT PRN PRN IV SEE I/O RECORD Last administered on 02/01/17 19:36; Start 01/31/17 at 15:00 Dextrose (Dextrose 50%-Water Syringe) 25 gm PRN Q15MIN PRN IV LOW BLOOD SUGAR; Start 01/31/17 at 15:00 Amiodarone HCl 150 mg/Dextrose 103 ml @ 200 mls/hr STAT STAT IV Last administered on 01/31/17 15:16; Start 01/31/17 at 14:51; Stop 01/31/17 at 15 :24; Status DC Amiodarone HCl 900 mg/Dextrose 518 ml @ 33.33 mls/ hr CONT PRN IV I/O Last administered on 01/31/17 15:16; Start 01/31/17 at 15:00; Stop 02/02/17 at 13 :15; Status DC Info 1 ea CONT PRN PRN MC SEE COMMENTS; Start 01/31/17 at 15:00 Info 1 ea CONT PRN PRN MC SEE COMMENTS; Start 01/31/17 at 15:00; Stop at 13:15; Status DC Magnesium Sulfate/ Dextrose 100 ml @ 100 mls/hr PRN DAILY PRN IV FOR MAG < 2.2 ; Start 01/31/17 at 15:00 Famotidine (Pepcid Vial) 20 mg BID IVP Last administered on 02/04/17 08:32; Start 01/31/17 at 21:00 Ondansetron HCl (Zofran) 4 mg PRN Q4HRS PRN IV NAUSEA/VOMITING Last administered on 02/03/17 19:14; Start 01/31/17 at 15:00 Prochlorperazine Edisylate (Compazine) 10 mg PRN Q6HRS PRN IV NAUSEA/VOMITING ( 2ND Choice); Start 01/31/17 at 15:00 Morphine Sulfate 2 mg PRN Q1HR PRN IV PAIN Last administered on 02/01/17 01: 09; Start 01/31/17 at 15:00 Acetaminophen (Tylenol) 650 mg PRN Q4HRS PRN PO MILD PAIN / TEMP; Start at 15:00 Acetaminophen (Acetaminophen Supp) 650 mg PRN Q4HRS PRN [place] MILD PAIN / TEMP; Start 01/31/17 at 15:00 Meperidine HCl (Demerol) 12.5 mg PRN Q15MIN PRN IV SHIVERING; Start 01/31/17 at 15:00; Stop 02/01/17 at 14:51; Status DC Propofol 100 ml @ 0 mls/hr CONT PRN PRN IV POSTOP SEDATION UNTIL EXTUBATE; Start 01/31/17 at 15:00; Stop 02/02/17 at 13:16; Status DC Bisacodyl (Dulcolax Supp) 10 mg PRN DAILY PRN [place] NO BOWEL MOVEMENT; Start at 15:00 Aspirin (Ecotrin) 325 mg DAILYWBKFT PO Last administered on 02/04/17 08:26; Start 01/31/17 at 16:00 Albuterol Sulfate (Ventolin Neb Soln) 2.5 mg PRN Q4HRS PRN NEB SHORTNESS OF BREATH; Start 01/31/17 at 15:00 Metoprolol Tartrate (Lopressor) 25 mg BID PO ; Start 01/31/17 at 16:00; Stop 02/02/17 at 13:16; Status DC Nicardipine HCl 50 mg/Sodium Chloride 270 ml @ 0 mls/hr CONT PRN PRN IV PER PROTOCOL; Start 01/31/17 at 15:00; Stop 02/02/17 at 13:16; Status DC Oxycodone/ Acetaminophen (Percocet 5/325) 1 tab PRN Q4HRS PRN PO MILD PAIN Last administered on 02/02/17 08:05; Start 01/31/17 at 15:00 Oxycodone/ Acetaminophen (Percocet 5/325) 2 tab PRN Q4HRS PRN PO MODERATE PAIN , SEVERE PAIN Last administered on 02/04/17 08:28; Start 01/31/17 at 15:00 Cefazolin Sodium/ Dextrose 50 ml @ 100 mls/hr Q8H IV Last administered on 06:24; Start 01/31/17 at 22:00; Stop 02/02/17 at 06:29; Status DC Polyethylene Glycol (miraLAX PACKET) 17 gm QHS PO Last administered on 20:17; Start 02/01/17 at 21:00 Morphine Sulfate 1 mg PRN Q10MIN PRN IV PAIN; Start 01/31/17 at 15:15; Stop 02/02/17 at 15:36; Status DC Morphine Sulfate 10 mg STK-MED ONCE .ROUTE ; Start 01/31/17 at 15:09; Stop at 15:10; Status DC Magnesium Sulfate/ Dextrose 50 ml @ 25 mls/hr 1X ONCE IV Last administered on 01/31/17 17:55; Start 01/31/17 at 17:45; Stop 01/31/17 at 19:44; Status DC Potassium Chloride 50 ml @ 50 mls/hr 1X ONCE IV Last administered on 17:54; Start 01/31/17 at 17:45; Stop 01/31/17 at 18:44; Status DC Sodium Bicarbonate 50 meq 1X ONCE IV Last administered on 01/31/17 20:39; Start 01/31/17 at 20:30; Stop 01/31/17 at 20:31; Status DC Potassium Chloride 50 ml @ 50 mls/hr 1X ONCE IV Last administered on 22:18; Start 01/31/17 at 22:15; Stop 01/31/17 at 23:14; Status DC Ketorolac Tromethamine (Toradol) 15 mg Q6H IV Last administered on 02/02/17 11:27; Start 01/31/17 at 23:00; Stop 02/02/17 at 12:44; Status DC Potassium Chloride 50 ml @ 50 mls/hr 1X ONCE IV Last administered on 07:59; Start 02/01/17 at 08:00; Stop 02/01/17 at 08:59; Status DC Magnesium Sulfate/ Dextrose 50 ml @ 25 mls/hr 1X ONCE IV Last administered on 02/01/17 07:59; Start 02/01/17 at 08:00; Stop 02/01/17 at 09:59; Status DC Morphine Sulfate 10 mg STK-MED ONCE .ROUTE ; Start 01/31/17 at 15:00; Stop at 08:40; Status DC Furosemide (Lasix) 20 mg 1X ONCE IVP Last administered on 02/01/17 13:25; Start 02/01/17 at 11:45; Stop 02/01/17 at 11:46; Status DC Amiodarone HCl (Cordarone) 200 mg BID PO Last administered on 02/04/17 08:27 ; Start 02/01/17 at 16:00 Magnesium Sulfate/ Dextrose 100 ml @ 100 mls/hr 1X ONCE IV Last administered on 02/01/17 22:50; Start 02/01/17 at 21:15; Stop 02/01/17 at 22:14; Status DC Potassium Chloride 50 ml @ 50 mls/hr Q1H IV Last administered on 02/01/17 23: 25; Start 02/01/17 at 21:15; Stop 02/01/17 at 23:14; Status DC Albumin Human 500 ml @ 250 mls/hr 1X ONCE IV Last administered on 02/02/17 01:29; Start 02/02/17 at 01:30; Stop 02/02/17 at 03:29; Status DC Albumin Human 250 ml @ 62.5 mls/hr 1X ONCE IV Last administered on 06:24; Start 02/02/17 at 05:45; Stop 02/02/17 at 09:44; Status DC Potassium Chloride 50 ml @ 50 mls/hr 1X ONCE IV Last administered on 12:19; Start 02/02/17 at 11:00; Stop 02/02/17 at 11:59; Status DC Magnesium Sulfate/ Dextrose 50 ml @ 25 mls/hr 1X ONCE IV Last administered on 02/02/17 12:19; Start 02/02/17 at 11:00; Stop 02/02/17 at 12:59; Status DC Albumin Human 250 ml @ 62.5 mls/hr 1X ONCE IV Last administered on 12:31; Start 02/02/17 at 12:00; Stop 02/02/17 at 15:59; Status DC Sodium Chloride 1,000 ml @ 75 mls/hr [id number] IV Last administered on 01:20; Start 02/02/17 at 12:00; Stop 02/03/17 at 17:16; Status DC Insulin Aspart (NovoLOG) 0-7 UNITS TIDWMEALS SQ Last administered on 12:33; Start 02/02/17 at 17:00 Sodium Chloride 1,000 ml @ 75 mls/hr [id number] IV Last administered on 06:21; Start 02/02/17 at 17:30; Stop 02/03/17 at 18:52; Status DC Senna/Docusate Sodium (Senna Plus) 1 tab PRN BID PRN PO CONSTIPATION Last administered on 02/04/17 08:26; Start 02/03/17 at 14:30 Active Scripts Active Reported Gemfibrozil 600 Mg Tablet 1 Tab PO DAILY Xigduo Xr 5 mg-500 mg Tablet (Dapagliflozin/Metformin HCl) 1 Each Tab.bp.24h 1 Each PO BID [place] 3 Fish Oil Softgel ([place]-3 Fatty Acids/Fish Oil) 1 Each Capsule.dr 1 Each PO DAILY Pravastatin Sodium 40 Mg Tablet 40 Mg PO DAILY Lisinopril 10 Mg Tablet 10 Mg PO DAILY Vitals/I & O Vital Sign - Last 24 Hours 02/03/17 02/03/17 02/03/17 02/03/17 15:10 16:13 17:16 18:19 Temp 97.9 98.0 97.9 98.0 Pulse 76 76 Resp 18 16 16 B/P (MAP) 123/69 (87) 119/71 (87) Pulse Ox 94 94 94 O2 Delivery Room Air Room Air Room Air O2 Flow Rate 2.0 2.0 02/03/17 02/03/17 02/03/17 02/03/17 19:05 20:17 20:18 20:27 Pulse 76 76 Resp 16 B/P (MAP) 119/71 119/71 Pulse Ox 93 O2 Delivery Room Air Room Air 02/03/17 02/04/17 02/04/17 02/04/17 22:56 03:00 06:23 08:10 Temp 98.5 98.4 98.7 98.5 98.4 98.7 Pulse 70 69 75 Resp 16 16 16 B/P (MAP) 116/68 (84) 113/66 (82) 105/68 (80) Pulse Ox 96 96 96 O2 Delivery Room Air Room Air Room Air Room Air 02/04/17 02/04/17 02/04/17 02/04/17 08:27 08:28 09:28 10:02 Pulse 75 82 Resp 18 18 B/P (MAP) 105/68 135/72 Pulse Ox 96 96 O2 Delivery Room Air Room Air ASIF BOWDEN MD Feb 04, 2017 11:57
[2017-02-04] MEDS: PANTOPRAZOLE 40 MG TABLET.DR. PO SCH (13:00)
[2017-02-04 15:20] VITALS: BP 116/67
[2017-02-04 19:40] VITALS: BP 115/73
[2017-02-04] MEDS: ATORVASTATIN CALCIUM 10 MG TABLET. PO SCH (20:55)
[2017-02-04] MEDS: POLYETHYLENE GLYCOL 3350 17 GM PACKET. PO SCH (20:56)
[2017-02-04 22:40] VITALS: BP 117/77
[2017-02-05] MEDS: ZOLPIDEM 5 MG TABLET. PO PRN (00:16)
[2017-02-05 03:00] VITALS: BP 116/69
[2017-02-05 07:45] VITALS: BP 105/63
[2017-02-05] MEDS: INSULIN ASPART 300 UNITS/3 ML INSULN.PEN SQ SCH ×2 (08:00→12:00)
[2017-02-05] MEDS: METOPROLOL TART IMMED RELEASE 25 MG TABLET. PO SCH (09:00)
[2017-02-05] MEDS: GEMFIBROZIL 600 MG TABLET. PO SCH (09:21)
[2017-02-05] MEDS: OMEGA-3 FATTY ACIDS/FISH OIL 1,000 MG CAPSULE. PO SCH (09:21)
[2017-02-05] MEDS: ASPIRIN ENTERIC COATED 325 MG TABLET.DR. PO SCH (09:21)
[2017-02-05] MEDS: PANTOPRAZOLE 40 MG TABLET.DR. PO SCH (09:21)
[2017-02-05] MEDS: SENNOSIDES/DOCUSATE 8.6/50MG TABLET. PO PRN (09:22)
[2017-02-05] MEDS: AMIODARONE HCL 200 MG TABLET. PO SCH (09:22)
--- NOTE | 2017-02-05 09:24 | PDOC ---
PROGRESS NOTES Subjective Subjective Patient doing well this morning. Sitting up comfortably in bed with family member at his side. Denies any CP, SOB, or increased LE edema this AM. Patient has been ambulating around the halls without difficulty. Is using his IS appropriately. Patient is eager to go home. No additional concerns at this time. Objective Objective Vital Signs Date Time Temp Pulse Resp B/P (MAP) Pulse Ox O2 Delivery O2 Flow Rate FiO2 02/05/17 08:00 Room Air 02/05/17 07:45 99.0 80 18 105/63 (77) 94 99.0 02/03/17 17:16 2.0 Intake and Output 02/05/17 06:59 Intake Total 1000 ml Balance 1000 ml Intake Oral 1000 ml # Voids 7 # Bowel Movements 1 Physical Exam COMMENT Alert, Awake, Oriented No changes in cardiac exam Lungs CTAB No edema in LE b/l Assessment Assessment Triple Vessel Disease and Unstable Angina. S/p CABG x 4 (AMAYA to LAD, radial to D1, SVG to OM, SVG to RPDA), Left radial artery harvest, and Left endoscopic greater saphenous vein harvest Plan Plan of Care Triple Vessel Disease s/p CABG x 4- Patient continues to improve. Doing well today. Metoprolol decreased to 12.5mg; BP still low this AM. Patient asymptomatic. Will not change dosage at this time. Plan for d/c to home this AM Comment Review of Relevant I have reviewed the following items nguyễn (where applicable) has been applied. Labs Laboratory Tests Test 02/03/17 12:28 02/03/17 17:20 02/03/17 20:16 02/04/17 03:00 Glucose (Fingerstick) 195 mg/dL (70-99) 131 mg/dL (70-99) 157 mg/dL (70-99) White Blood Count 5.2 x10^3/uL (4.0-11.0) Red Blood Count 3.72 x10^6/uL (4.30-5.70) Hemoglobin 11.0 g/dL (13.0-17.5) Hematocrit 32.8 % (39.0-53.0) Mean Corpuscular Volume 88 fL (79-100) Mean Corpuscular Hemoglobin 30 pg (25-35) Mean Corpuscular Hemoglobin Concent 34 g/dL (31-37) Red Cell Distribution Width 14.0 % (11.5-14.5) Platelet Count 119 x10^3/uL (140-400) Neutrophils (%) (Auto) 58 % (31-73) Lymphocytes (%) (Auto) 30 % (24-48) Monocytes (%) (Auto) 10 % (0-9) Eosinophils (%) (Auto) 2 % (0-3) Basophils (%) (Auto) 1 % (0-3) Neutrophils # (Auto) 3.0 x10^3uL (1.8-7.7) Lymphocytes # (Auto) 1.6 x10^3/uL (1.0-4.8) Monocytes # (Auto) 0.5 x10^3/uL (0.0-1.1) Eosinophils # (Auto) 0.1 x10^3/uL (0.0-0.7) Basophils # (Auto) 0.0 x10^3/uL (0.0-0.2) Sodium Level 139 mmol/L (136-145) Potassium Level 3.8 mmol/L (3.5-5.1) Chloride Level 103 mmol/L (98-107) Carbon Dioxide Level 30 mmol/L (21-32) Anion Gap 6 (6-14) Blood Urea Nitrogen 10 mg/dL (8-26) Creatinine 0.7 mg/dL (0.7-1.3) Estimated GFR (Cockcroft-Gault) 118.4 Glucose Level 150 mg/dL (70-99) Calcium Level 8.6 mg/dL (8.5-10.1) Test 02/04/17 07:42 02/04/17 11:50 02/04/17 17:13 02/04/17 21:02 Glucose (Fingerstick) 129 mg/dL (70-99) 194 mg/dL (70-99) 138 mg/dL (70-99) 173 mg/dL (70-99) Test 02/05/17 07:49 Glucose (Fingerstick) 135 mg/dL (70-99) Laboratory Tests Test 02/04/17 11:50 02/04/17 17:13 02/04/17 21:02 02/05/17 07:49 Glucose (Fingerstick) 194 mg/dL (70-99) 138 mg/dL (70-99) 173 mg/dL (70-99) 135 mg/dL (70-99) Medications Current Medications Heparin Sodium/ Sodium Chloride 500 ml @ As Directed STK-MED ONCE .ROUTE ; Start 01/29/17 at 09:21; Stop 01/29/17 at 09:22; Status DC Iohexol (Omnipaque 300 Mg/ml) 100 ml STK-MED ONCE .ROUTE ; Start 01/29/17 at 09 :22; Stop 01/29/17 at 09:23; Status DC Lidocaine HCl 20 ml STK-MED ONCE .ROUTE ; Start 01/29/17 at 09:22; Stop at 09:23; Status DC Fentanyl Citrate (Fentanyl 2ml Vial) 100 mcg STK-MED ONCE .ROUTE ; Start at 09:36; Stop 01/29/17 at 09:37; Status DC Midazolam HCl (Versed) 2 mg STK-MED ONCE .ROUTE ; Start 01/29/17 at 09:36; Stop 01/29/17 at 09:37; Status DC Heparin Sodium/ Sodium Chloride 1,000 unit 1X ONCE IART Last administered on 01/29/17 10:16; Start 01/29/17 at 10:15; Stop 01/29/17 at 10:16; Status DC Midazolam HCl (Versed) 2 mg 1X ONCE IV Last administered on 01/29/17 10:17; Start 01/29/17 at 10:15; Stop 01/29/17 at 10:16; Status DC Fentanyl Citrate (Fentanyl 2ml Vial) 100 mcg 1X ONCE IV Last administered on 01/29/17 10:17; Start 01/29/17 at 10:15; Stop 01/29/17 at 10:16; Status DC Iohexol (Omnipaque 300 Mg/ml) 100 ml 1X ONCE IART Last administered on 10:16; Start 01/29/17 at 10:15; Stop 01/29/17 at 10:16; Status DC Lidocaine HCl 17 ml 1X ONCE IJ Last administered on 01/29/17 10:16; Start 01/29/17 at 10:15; Stop 01/29/17 at 10:16; Status DC Sodium Chloride (Normal Saline Flush) 3 ml QSHIFT PRN IV AFTER MEDS AND BLOOD DRAWS; Start 01/29/17 at 10:15; Stop 01/30/17 at 10:14; Status DC Nitroglycerin (Nitrostat) 0.4 mg PRN Q5MIN PRN SL CHEST PAIN; Start 01/29/17 at 10:15; Stop 01/30/17 at 10:14; Status DC Gemfibrozil (Lopid) 600 mg DAILY PO Last administered on 02/04/17 08:26; Start 01/29/17 at 12:30 Fish Oil (Fish Oil) 1,000 mg DAILY PO Last administered on 02/04/17 08:26; Start 01/29/17 at 12:30 Atorvastatin Calcium (Lipitor) 10 mg QHS PO Last administered on 02/04/17 20: 55; Start 01/29/17 at 21:00 Insulin Aspart (NovoLOG) 0-5 UNITS TIDWMEALS SQ Last administered on 11:41; Start 01/29/17 at 12:30; Stop 02/02/17 at 13:19; Status DC Dextrose (Dextrose 50%-Water Syringe) 12.5 gm PRN Q15MIN PRN IV SEE COMMENTS; Start 01/29/17 at 11:45 Pneumococcal Polyvalent Vaccine (Do NOT chart on this placeholder) 1 each PRN 1X PRN MC SEE COMMENTS; Start 01/29/17 at 12:30; Status UNV Pneumococcal Polyvalent Vaccine (Pneumovax 23) 0.5 ml ONCE ONCE VAX IM Last administered on 02/03/17 16:18; Start 01/29/17 at 13:00; Stop 01/29/17 at 13 :01; Status DC Lisinopril (Prinivil) 10 mg DAILY PO ; Start 01/29/17 at 15:30; Stop 01/29/17 at 18:09; Status DC Metoprolol Tartrate (Lopressor) 25 mg BID PO Last administered on 02/04/17 10 :02; Start 01/29/17 at 21:00; Stop 02/04/17 at 15:54; Status DC Zolpidem Tartrate (Ambien) 5 mg PRN QHS PRN PO INSOMNIA, MAY REPEAT IN 1HR Last administered on 02/05/17 00:16; Start 01/29/17 at 18:15 Cefazolin Sodium/ Dextrose 50 ml @ 100 mls/hr 1X ONCE IV ; Start 01/30/17 at 06:00; Stop 01/30/17 at 06:29; Status DC Cefazolin Sodium/ Dextrose 50 ml @ 100 mls/hr 1X PREOP ONCE IV ; Start at 06:00; Stop 01/30/17 at 09:48; Status DC Ondansetron HCl (Zofran) 4 mg PRN Q6HRS PRN IV NAUSEA/VOMITING; Start at 07:00; Stop 02/01/17 at 06:59; Status DC Fentanyl Citrate (Fentanyl 2ml Vial) 25 mcg PRN Q5MIN PRN IV MILD PAIN; Start 01/31/17 at 07:00; Stop 02/01/17 at 06:59; Status DC Fentanyl Citrate (Fentanyl 2ml Vial) 50 mcg PRN Q5MIN PRN IV MODERATE PAIN; Start 01/31/17 at 07:00; Stop 02/01/17 at 06:59; Status DC Morphine Sulfate 1 mg PRN Q10MIN PRN IV SEVERE PAIN; Start 01/31/17 at 07:00; Stop 02/01/17 at 06:59; Status DC Ringer's Solution 1,000 ml @ 30 mls/hr Q24H IV Last administered on t 15:25; Start 01/31/17 at 07:00; Stop 01/31/17 at 18:59; Status DC Lidocaine HCl (Xylocaine-Mpf 1% Vial) 2 ml PRN 1X PRN ID IV START; Start 01/31 at 07:00; Stop 02/01/17 at 06:59; Status DC Hydromorphone HCl (Dilaudid) 0.5 mg PRN Q10MIN PRN IV SEV PAIN, Second choice; Start 01/31/17 at 07:00; Stop 02/01/17 at 06:59; Status DC Prochlorperazine Edisylate (Compazine) 5 mg PACU PRN PRN IV NAUSEA, MRX1; Start 01/31/17 at 07:00; Stop 02/01/17 at 06:59; Status DC Heparin Sodium (Porcine) 30,000 unit STK-MED ONCE .ROUTE ; Start 01/31/17 at 06 :36; Stop 01/31/17 at 06:37; Status DC Rocuronium [place] (Zemuron) 100 mg STK-MED ONCE .ROUTE ; Start 01/31/17 at 06: 37; Stop 01/31/17 at 06:38; Status DC Ephedrine Sulfate (Akovaz) 50 mg STK-MED ONCE .ROUTE ; Start 01/31/17 at 06:37 ; Stop 01/31/17 at 06:38; Status DC Nitroglycerin/ Dextrose 250 ml @ As Directed STK-MED ONCE IV ; Start 01/31/17 at 06:39; Stop 01/31/17 at 06:40; Status DC Aminocaproic Acid (Amicar) 5,000 mg STK-MED ONCE IV ; Start 01/31/17 at 06:41; Stop 01/31/17 at 06:42; Status DC Etomidate (Amidate) 20 mg STK-MED ONCE IV ; Start 01/31/17 at 06:41; Stop at 06:42; Status DC Lidocaine HCl (Lidocaine Pf 2% Vial) 5 ml STK-MED ONCE .ROUTE ; Start 01/31/17 at 06:41; Stop 01/31/17 at 06:42; Status DC Phenylephrine HCl (Ramy-Synephrine Inj) 10 mg STK-MED ONCE .ROUTE ; Start at 06:41; Stop 01/31/17 at 06:42; Status DC Sufentanil Citrate (Sufenta) 100 mcg STK-MED ONCE .ROUTE ; Start 01/31/17 at 06 :42; Stop 01/31/17 at 06:43; Status DC Midazolam HCl (Versed) 2 mg STK-MED ONCE .ROUTE ; Start 01/31/17 at 06:43; Stop 01/31/17 at 06:44; Status DC Vancomycin HCl (Vanco) 10 gm STK-MED ONCE .ROUTE Last administered on 08:19; Start 01/31/17 at 07:10; Stop 01/31/17 at 07:11; Status DC Cellulose 1 each STK-MED ONCE .ROUTE Last administered on 01/31/17 08:19; Start 01/31/17 at 07:10; Stop 01/31/17 at 07:11; Status DC Papaverine HCl 60 mg STK-MED ONCE .ROUTE Last administered on 01/31/17 08:19 ; Start 01/31/17 at 07:10; Stop 01/31/17 at 07:11; Status DC Aspirin (Aspirin) 300 mg STK-MED ONCE .ROUTE Last administered on 01/31/17 14 :45; Start 01/31/17 at 07:10; Stop 01/31/17 at 07:11; Status DC Sodium Chloride (Sodium Chloride) 50 ml STK-MED ONCE IJ Last administered on 08:19; Start 01/31/17 at 07:10; Stop 01/31/17 at 07:11; Status DC Cefazolin Sodium/ Dextrose 50 ml @ As Directed STK-MED ONCE IV ; Start at 07:20; Stop 01/31/17 at 07:21; Status DC Albumin Human 200 ml @ As Directed STK-MED ONCE IV ; Start 01/31/17 at 07:27; Stop 01/31/17 at 07:28; Status DC Mannitol (Mannitol) 12.5 g STK-MED ONCE .ROUTE ; Start 01/31/17 at 07:28; Stop 01/31/17 at 07:29; Status DC Magnesium Sulfate 5 gm STK-MED ONCE .ROUTE ; Start 01/31/17 at 07:28; Stop at 07:29; Status DC Calcium Chloride 1,000 mg STK-MED ONCE IV ; Start 01/31/17 at 07:28; Stop at 07:29; Status DC Heparin Sodium (Porcine) 30,000 unit STK-MED ONCE .ROUTE ; Start 01/31/17 at 07 :29; Stop 01/31/17 at 07:30; Status DC Potassium Chloride 70 meq/ Sodium Bicarbonate 12.5 meq/Lidocaine HCl 24 ml/ Parenteral Electrolytes 571.5 ml @ 571.5 mls/ hr 1X PERIOP ONCE IRR ; Start 01/31/17 at 08:00; Stop 01/31/17 at 08:59; Status DC Potassium Chloride 15 meq/ Sodium Bicarbonate 12.5 meq/Parenteral Electrolytes 520 ml @ 520 mls/hr 1X PERIOP ONCE IRR ; Start 01/31/17 at 08:00; Stop 01/31 at 08:59; Status DC Heparin Sodium (Porcine) 30255 unit/Ringer's Solution 1,020 ml @ 1,020 mls/hr 1X PERIOP ONCE IRR Last administered on 01/31/17 08:19; Start 01/31/17 at 08:00; Stop 01/31/17 at 08:59; Status DC Cefazolin Sodium 1 gm/Sodium Chloride 500 ml @ 500 mls/hr 1X PERIOP ONCE IRR Last administered on 01/31/17 08:19; Start 01/31/17 at 08:00; Stop 01/31/17 at 08:59; Status DC Albumin Human 1,000 ml @ As Directed STK-MED ONCE IV ; Start 01/31/17 at 08:00 ; Stop 01/31/17 at 08:03; Status DC Heparin Sodium (Porcine) 800 unit/ Nitroglycerin 4 mg/Verapamil HCl 8 mg/Sodium Bicarbonate 0.34 meq/Ringer's Solution 512.34 ml @ 512.34 mls/hr 1X PERIOP ONCE IRR Last administered on 01/31/17 08:19; Start 01/31/17 at 08:30; Stop 01/31/17 at 09:29; Status DC Sufentanil Citrate (Sufenta) 100 mcg STK-MED ONCE .ROUTE ; Start 01/31/17 at 08 :16; Stop 01/31/17 at 08:17; Status DC Heparin Sodium (Porcine) (Heparin Sodium) 10,000 unit STK-MED ONCE .ROUTE ; Start 01/31/17 at 08:28; Stop 01/31/17 at 08:29; Status DC Rocuronium [place] (Zemuron) 100 mg STK-MED ONCE .ROUTE ; Start 01/31/17 at 08: 48; Stop 01/31/17 at 08:49; Status DC Sufentanil Citrate (Sufenta) 100 mcg STK-MED ONCE .ROUTE ; Start 01/31/17 at 09 :45; Stop 01/31/17 at 09:46; Status DC Norepinephrine Bitartrate 250 ml @ 1.875 mls/ hr 1X ONCE IV ; Start 01/31/17 at 10:15; Stop 02/02/17 at 13:15; Status DC Insulin Human Regular 150 unit/ Sodium Chloride 151.5 ml @ 0 mls/hr 1X ONCE IV ; Start 01/31/17 at 10:15; Stop 01/31/17 at 10:16; Status DC Cefazolin Sodium 100 ml @ As Directed STK-MED ONCE IV ; Start 01/31/17 at 10: 06; Stop 01/31/17 at 10:07; Status DC Rocuronium [place] (Zemuron) 100 mg STK-MED ONCE .ROUTE ; Start 01/31/17 at 11: 23; Stop 01/31/17 at 11:24; Status DC Midazolam HCl (Versed) 5 mg STK-MED ONCE .ROUTE ; Start 01/31/17 at 11:23; Stop 01/31/17 at 11:24; Status DC Midazolam HCl (Versed) 5 mg STK-MED ONCE .ROUTE ; Start 01/31/17 at 11:51; Stop 01/31/17 at 11:52; Status DC Sufentanil Citrate (Sufenta) 100 mcg STK-MED ONCE .ROUTE ; Start 01/31/17 at 12 :48; Stop 01/31/17 at 12:49; Status DC Rocuronium [place] (Zemuron) 50 mg STK-MED ONCE .ROUTE ; Start 01/31/17 at 13: 23; Stop 01/31/17 at 13:24; Status DC Mannitol (Mannitol) 12.5 g STK-MED ONCE .ROUTE ; Start 01/31/17 at 13:40; Stop 01/31/17 at 13:41; Status DC Clevidipine 100 ml @ 0 mls/hr CONT PRN IV PER PROTOCOL Last administered on 15:57; Start 01/31/17 at 14:30; Stop 02/02/17 at 13:15; Status DC Sodium Chloride (Normal Saline Flush) 3 ml PRN Q12HR PRN IV AFTER MEDS AND BLOOD DRAWS; Start 01/31/17 at 15:00 Ringer's Solution 1,000 ml @ 30 mls/hr Q24H IV Last administered on 18:02; Start 01/31/17 at 14:51; Stop 02/03/17 at 17:16; Status DC Albumin Human 250 ml @ 60 mls/hr PRN Q4HRS PRN IV SEE I/O RECORD Last administered on 02/01/17 20:13; Start 01/31/17 at 15:00 Insulin Human Regular 150 unit/ Sodium Chloride 151.5 ml @ 0 mls/hr CONT PRN PRN IV SEE I/O RECORD Last administered on 02/01/17 19:36; Start 01/31/17 at 15:00 Dextrose (Dextrose 50%-Water Syringe) 25 gm PRN Q15MIN PRN IV LOW BLOOD SUGAR; Start 01/31/17 at 15:00 Amiodarone HCl 150 mg/Dextrose 103 ml @ 200 mls/hr STAT STAT IV Last administered on 01/31/17 15:16; Start 01/31/17 at 14:51; Stop 01/31/17 at 15 :24; Status DC Amiodarone HCl 900 mg/Dextrose 518 ml @ 33.33 mls/ hr CONT PRN IV I/O Last administered on 01/31/17 15:16; Start 01/31/17 at 15:00; Stop 02/02/17 at 13 :15; Status DC Info 1 ea CONT PRN PRN MC SEE COMMENTS; Start 01/31/17 at 15:00 Info 1 ea CONT PRN PRN MC SEE COMMENTS; Start 01/31/17 at 15:00; Stop at 13:15; Status DC Magnesium Sulfate/ Dextrose 100 ml @ 100 mls/hr PRN DAILY PRN IV FOR MAG < 2.2 ; Start 01/31/17 at 15:00 Famotidine (Pepcid Vial) 20 mg BID IVP Last administered on 02/04/17 08:32; Start 01/31/17 at 21:00; Stop 02/04/17 at 12:12; Status DC Ondansetron HCl (Zofran) 4 mg PRN Q4HRS PRN IV NAUSEA/VOMITING Last administered on 02/03/17 19:14; Start 01/31/17 at 15:00 Prochlorperazine Edisylate (Compazine) 10 mg PRN Q6HRS PRN IV NAUSEA/VOMITING ( 2ND Choice); Start 01/31/17 at 15:00 Morphine Sulfate 2 mg PRN Q1HR PRN IV PAIN Last administered on 02/01/17 01: 09; Start 01/31/17 at 15:00 Acetaminophen (Tylenol) 650 mg PRN Q4HRS PRN PO MILD PAIN / TEMP; Start at 15:00 Acetaminophen (Acetaminophen Supp) 650 mg PRN Q4HRS PRN AL MILD PAIN / TEMP; Start 01/31/17 at 15:00 Meperidine HCl (Demerol) 12.5 mg PRN Q15MIN PRN IV SHIVERING; Start 01/31/17 at 15:00; Stop 02/01/17 at 14:51; Status DC Propofol 100 ml @ 0 mls/hr CONT PRN PRN IV POSTOP SEDATION UNTIL EXTUBATE; Start 01/31/17 at 15:00; Stop 02/02/17 at 13:16; Status DC Bisacodyl (Dulcolax Supp) 10 mg PRN DAILY PRN AL NO BOWEL MOVEMENT; Start at 15:00 Aspirin (Ecotrin) 325 mg DAILYWBKFT PO Last administered on 02/04/17 08:26; Start 01/31/17 at 16:00 Albuterol Sulfate (Ventolin Neb Soln) 2.5 mg PRN Q4HRS PRN NEB SHORTNESS OF BREATH; Start 01/31/17 at 15:00 Metoprolol Tartrate (Lopressor) 25 mg BID PO ; Start 01/31/17 at 16:00; Stop 02/02/17 at 13:16; Status DC Nicardipine HCl 50 mg/Sodium Chloride 270 ml @ 0 mls/hr CONT PRN PRN IV PER PROTOCOL; Start 01/31/17 at 15:00; Stop 02/02/17 at 13:16; Status DC Oxycodone/ Acetaminophen (Percocet 5/325) 1 tab PRN Q4HRS PRN PO MILD PAIN Last administered on 02/02/17 08:05; Start 01/31/17 at 15:00 Oxycodone/ Acetaminophen (Percocet 5/325) 2 tab PRN Q4HRS PRN PO MODERATE PAIN , SEVERE PAIN Last administered on 02/04/17 08:28; Start 01/31/17 at 15:00; Stop 02/04/17 at 12:12; Status DC Cefazolin Sodium/ Dextrose 50 ml @ 100 mls/hr Q8H IV Last administered on 06:24; Start 01/31/17 at 22:00; Stop 02/02/17 at 06:29; Status DC Polyethylene Glycol (miraLAX PACKET) 17 gm QHS PO Last administered on 20:56; Start 02/01/17 at 21:00 Morphine Sulfate 1 mg PRN Q10MIN PRN IV PAIN; Start 01/31/17 at 15:15; Stop 02/02/17 at 15:36; Status DC Morphine Sulfate 10 mg STK-MED ONCE .ROUTE ; Start 01/31/17 at 15:09; Stop at 15:10; Status DC Magnesium Sulfate/ Dextrose 50 ml @ 25 mls/hr 1X ONCE IV Last administered on 01/31/17 17:55; Start 01/31/17 at 17:45; Stop 01/31/17 at 19:44; Status DC Potassium Chloride 50 ml @ 50 mls/hr 1X ONCE IV Last administered on 17:54; Start 01/31/17 at 17:45; Stop 01/31/17 at 18:44; Status DC Sodium Bicarbonate 50 meq 1X ONCE IV Last administered on 01/31/17 20:39; Start 01/31/17 at 20:30; Stop 01/31/17 at 20:31; Status DC Potassium Chloride 50 ml @ 50 mls/hr 1X ONCE IV Last administered on 22:18; Start 01/31/17 at 22:15; Stop 01/31/17 at 23:14; Status DC Ketorolac Tromethamine (Toradol) 15 mg Q6H IV Last administered on 02/02/17 11:27; Start 01/31/17 at 23:00; Stop 02/02/17 at 12:44; Status DC Potassium Chloride 50 ml @ 50 mls/hr 1X ONCE IV Last administered on 07:59; Start 02/01/17 at 08:00; Stop 02/01/17 at 08:59; Status DC Magnesium Sulfate/ Dextrose 50 ml @ 25 mls/hr 1X ONCE IV Last administered on 02/01/17 07:59; Start 02/01/17 at 08:00; Stop 02/01/17 at 09:59; Status DC Morphine Sulfate 10 mg STK-MED ONCE .ROUTE ; Start 01/31/17 at 15:00; Stop at 08:40; Status DC Furosemide (Lasix) 20 mg 1X ONCE IVP Last administered on 02/01/17 13:25; Start 02/01/17 at 11:45; Stop 02/01/17 at 11:46; Status DC Amiodarone HCl (Cordarone) 200 mg BID PO Last administered on 02/04/17 20:56 ; Start 02/01/17 at 16:00 Magnesium Sulfate/ Dextrose 100 ml @ 100 mls/hr 1X ONCE IV Last administered on 02/01/17 22:50; Start 02/01/17 at 21:15; Stop 02/01/17 at 22:14; Status DC Potassium Chloride 50 ml @ 50 mls/hr Q1H IV Last administered on 02/01/17 23: 25; Start 02/01/17 at 21:15; Stop 02/01/17 at 23:14; Status DC Albumin Human 500 ml @ 250 mls/hr 1X ONCE IV Last administered on 02/02/17 01:29; Start 02/02/17 at 01:30; Stop 02/02/17 at 03:29; Status DC Albumin Human 250 ml @ 62.5 mls/hr 1X ONCE IV Last administered on 06:24; Start 02/02/17 at 05:45; Stop 02/02/17 at 09:44; Status DC Potassium Chloride 50 ml @ 50 mls/hr 1X ONCE IV Last administered on 12:19; Start 02/02/17 at 11:00; Stop 02/02/17 at 11:59; Status DC Magnesium Sulfate/ Dextrose 50 ml @ 25 mls/hr 1X ONCE IV Last administered on 02/02/17 12:19; Start 02/02/17 at 11:00; Stop 02/02/17 at 12:59; Status DC Albumin Human 250 ml @ 62.5 mls/hr 1X ONCE IV Last administered on 12:31; Start 02/02/17 at 12:00; Stop 02/02/17 at 15:59; Status DC Sodium Chloride 1,000 ml @ 75 mls/hr [id number] IV Last administered on 01:20; Start 02/02/17 at 12:00; Stop 02/03/17 at 17:16; Status DC Insulin Aspart (NovoLOG) 0-7 UNITS TIDWMEALS SQ Last administered on 12:35; Start 02/02/17 at 17:00 Sodium Chloride 1,000 ml @ 75 mls/hr [id number] IV Last administered on 06:21; Start 02/02/17 at 17:30; Stop 02/03/17 at 18:52; Status DC Senna/Docusate Sodium (Senna Plus) 1 tab PRN BID PRN PO CONSTIPATION Last administered on 02/04/17 08:26; Start 02/03/17 at 14:30 Pantoprazole Sodium (Protonix) 40 mg DAILYAC PO ; Start 02/04/17 at 13:00 Metoprolol Tartrate (Lopressor) 12.5 mg BID PO Last administered on 02/04/17 20:55; Start 02/04/17 at 21:00 Active Scripts Active Reported Gemfibrozil 600 Mg Tablet 1 Tab PO DAILY Xigduo Xr 5 mg-500 mg Tablet (Dapagliflozin/Metformin HCl) 1 Each Tab.bp.24h 1 Each PO BID [place] 3 Fish Oil Softgel ([place]-3 Fatty Acids/Fish Oil) 1 Each Capsule. 1 Each PO DAILY Pravastatin Sodium 40 Mg Tablet 40 Mg PO DAILY Lisinopril 10 Mg Tablet 10 Mg PO DAILY Vitals/I & O Vital Sign - Last 24 Hours 02/04/17 02/04/17 02/04/17 02/04/17 09:28 10:02 11:00 15:20 Temp 98.1 98.5 98.1 98.5 Pulse 82 72 75 Resp B/P (MAP) 135/72 130/73 (92) 116/67 (83) Pulse Ox 96 95 95 O2 Delivery Room Air Room Air Room Air 02/04/17 02/04/17 02/04/17 02/04/17 19:40 19:40 20:55 20:56 Temp 99.0 99.0 Pulse 83 83 83 Resp 20 B/P (MAP) 115/73 (87) 115/73 115/73 Pulse Ox 96 O2 Delivery Room Air Room Air 02/04/17 02/05/17 02/05/17 02/05/17 22:40 03:00 07:45 08:00 Temp 99.2 98.5 99.0 99.2 98.5 99.0 Pulse 78 76 80 Resp 20 18 18 B/P (MAP) 117/77 (90) 116/69 (85) 105/63 (77) Pulse Ox 96 92 94 O2 Delivery Room Air Room Air Room Air Room Air Intake and Output 02/04/17 02/04/17 02/05/17 14:59 22:59 06:59 Intake Total 1000 ml Balance 1000 ml ASIF BOWDEN MD Feb 05, 2017 09:24
[2017-02-05] MEDS ORDERED: METO25TA4 PO (09:56)
[2017-02-05 11:00] VITALS: BP 104/62
[2017-02-05] MEDS ORDERED: AMIO200T2 PO (11:37)
[2017-02-05] MEDS ORDERED: ASPI325T11 PO (12:01)
== END 2017-02-05 16:08 | disposition home or self-care (01) | DRG 234 ==
LOC: CCL 08:22 → 2 NORTH 10:54 → 1 WEST ICU 01-31 09:03 → 2 SOUTH 02-02 13:13
PROVIDERS: ADMIT Internal Medicine Cardiovascular Disease; ATTEND Internal Medicine Cardiovascular Disease
PROC: 4A023N7 Measurement of Cardiac Sampling and Pressure, Left Heart, Percutaneous Approach (ICD-10-PCS; 2017-01-29)
PROC: B2111ZZ Fluoroscopy of Multiple Coronary Arteries using Low Osmolar Contrast (ICD-10-PCS; 2017-01-29)
PROC: B2151ZZ Fluoroscopy of Left Heart using Low Osmolar Contrast (ICD-10-PCS; 2017-01-29)
PROC: 02100AW Bypass Coronary Artery, One Artery from Aorta with Autologous Arterial Tissue, Open Approach (ICD-10-PCS; 2017-01-31)
PROC: 06BQ4ZZ Excision of Left Saphenous Vein, Percutaneous Endoscopic Approach (ICD-10-PCS; 2017-01-31)
PROC: 5A1221Z Performance of Cardiac Output, Continuous (ICD-10-PCS; 2017-01-31)
PROC: 0W9B30Z Drainage of Left Pleural Cavity with Drainage Device, Percutaneous Approach (ICD-10-PCS; 2017-01-31)
PROC: 021109W Bypass Coronary Artery, Two Arteries from Aorta with Autologous Venous Tissue, Open Approach (ICD-10-PCS; 2017-01-31)
PROC: 02100Z9 Bypass Coronary Artery, One Artery from Left Internal Mammary, Open Approach (ICD-10-PCS; principal; 2017-01-31 07:30)
DX: I25.110 Atherosclerotic heart disease of native coronary artery with unstable angina pectoris (principal); I11.0 Hypertensive heart disease with heart failure; I50.9 Heart failure, unspecified; E11.9 Type 2 diabetes mellitus without complications; E78.5 Hyperlipidemia, unspecified; Z95.5 Presence of coronary angioplasty implant and graft
CPT/HCPCS: 36415; 36600; 71010; 71250; 80048; 80053; 80076; 82803; 82805; 82962; 83735; 84132; 85014; 85018; 85025; 85027; 85347; 85384; 85610; 85730; 86850; 86900; 86901; 86920; 87641; 90732; 93005; 93306; 93458; 93880; 93970; 94002; 94660; 99152; 99153; C1769; C1781; C1892; J0282; J0690; J1644; J1815; J1885; J2150; J2250; J2270; J2405; J2440; J3010; J3370; J3475; J3480; J3490; J7030; J7040; J7060; J7120; P9041; P9045; P9046; Q9967; S0028; 97116; 97530; 97535; C9248; J2001

== ENCOUNTER → 2017-02-15 | Outpatient (CLI) | payer OTHER ==
[2017-02-05 11:00] VITALS: BP 104/62
[~2017-02-15] MED LIST changes: +AMIO200T2 PO; +ASPI325T11 PO; +DAPA1TAB PO; +METO25TA4 PO
== END | disposition home or self-care (01) ==
LOC: LAB 15:42
PROVIDERS: ATTEND Family Medicine
DX: R50.9 Fever, unspecified (principal)
CPT/HCPCS: 36415; 87040

== ENCOUNTER → 2017-02-23 | Outpatient (CLI) | payer OTHER ==
[2017-02-05 11:00] VITALS: BP 104/62
--- NOTE | 2017-02-23 13:28 | RAD ---
2 views of the Chest 02/23/2017 2:00 AM Indication: CABG Comparison: None Findings: There is no pneumothorax. The right lung is clear. Heart size is normal. Prior median sternotomy noted. There is a very small left pleural effusion with mild underlying atelectasis. No acute osseous changes are seen. Impression: Very small left pleural effusion with mild underlying atelectasis
== END | disposition home or self-care (01) ==
LOC: RAD 12:14
PROVIDERS: ATTEND Nurse Practitioner
DX: J90 Pleural effusion, not elsewhere classified (principal); Z95.1 Presence of aortocoronary bypass graft
CPT/HCPCS: 71020

== ENCOUNTER 2017-10-30 13:41 | Emergency (ER) | payer OTHER ==
[~2017-10-30] VITALS: Ht 188 cm; Wt 99.8 kg
[~2017-10-30 13:41] MED LIST changes: -AMIO200T2 PO; +AMIO200T4 PO
--- NOTE | 2017-10-30 14:07 | PHYS DOC ---
Past Medical History Past Medical History: CAD Past Surgical History: Coronary Bypass Surgery Adult General Chief Complaint Chief Complaint: SHORTNESS OF BREATH HPI HPI Patient is a 52-year-old male who presents to the emergency department for evaluation. He states that for the past 2 days he has had nasal congestion, and stuffiness in his nose. He is NOT short of breath, but he states that he feels like he is unable to breathe through his nose. When he is breathing through his mouth he has not short of breath at all. He denies having any pain, including any chest pain, he denies any orthopnea, pleuritic pain, fevers, or chills. He has had some mild left otalgia as well. other family members have had similar symptoms. There are no alleviating, or exacerbating factors to his symptoms. Review of Systems Review of Systems Constitutional: Denies fever or chills [] Eyes: Denies change in visual acuity, redness, or eye pain [] HENT: Reports nasal congestion. Denies sore throat [] Respiratory: Denies duct of cough or shortness of breath [] Cardiovascular: The patient denies any shortness of breath, chest pain, palpitations, or orthopnea [] GI: Denies abdominal pain, nausea, vomiting, bloody stools or diarrhea [] : Denies dysuria or hematuria [] Musculoskeletal: Denies back pain or joint pain [] Integument: Denies rash or skin lesions [] Neurologic: Denies headache, Allergies Allergies Allergies Coded Allergies Type Severity Reaction Last Updated Verified No Known Drug Allergies 01/31/17 No Physical Exam Physical Exam PHYSICAL EXAM: CONSTITUTIONAL: Well developed, well nourished HEAD: normocephalic, atraumatic EENT: PERRL, EOMI. Conjunctivae normal color, sclerae non-icteric; moist mucous membranes. Tympanic membranes are normal bilaterally. Oropharynx is nonerythematous. There is mild bogginess to the nasal mucosa. There is no sinus tenderness to palpation. NECK: Supple, non-tender; no meningismus. LUNGS: Lungs CTA, breathing even and unlabored. Normal air movement. HEART: Regular rate and rhythm, no murmur CHEST: No deformity; non-tender ABDOMEN: The abdomen is soft, and non-tender, no masses or bruits. EXTREM: Normal ROM; no deformity, no calf tenderness. Normal pulses palpable in all extremities. There is no pedal edema. SKIN: No rash; no diaphoresis NEURO: Alert; normal speech and cognition; CN's grossly intact; strength grossly intact without focal deficit. BACK: No CVA TTP. Current Patient Data Vital Signs Vital Signs Date Time Temp Pulse Resp B/P (MAP) Pulse Ox O2 Delivery O2 Flow Rate FiO2 10/30/17 13:50 98.2 76 16 146/73 (97) 97 Room Air 98.2 EKG EKG [] Radiology/Procedures Radiology/Procedures [PROCEDURE: CHEST PA & LATERAL Chest, PA and Lateral: Technique: PA and lateral views of the chest were obtained. History: Shortness of breath. Comparison: September 2016. Findings: The heart and pulmonary vasculature appear within normal limits. The lungs are clear. The pleural margins are clear. Median sternotomy wires identified. Impression: No acute chest process is seen. ] Course & Med Decision Making Course & Med Decision Making Pertinent Imaging studies reviewed. (See chart for details) [] Dragon Disclaimer Dragon Disclaimer This electronic medical record was generated, in whole or in part, using a voice recognition dictation system. Departure Departure Impression: Primary Impression: Nasal congestion Additional Impression: Upper respiratory infection Disposition: HOME, SELF-CARE Condition: STABLE Referrals: MARIEL ZAMUDIO MD (PCP) Patient Instructions: Sinusitis, Upper Respiratory Infection, Adult Problem Qualifiers SABINA MARTEL MD Oct 30, 2017 14:07
--- NOTE | 2017-10-30 14:40 | RAD ---
Chest, PA and Lateral: Technique: PA and lateral views of the chest were obtained. History: Shortness of breath. Comparison: September 2016. Findings: The heart and pulmonary vasculature appear within normal limits. The lungs are clear. The pleural margins are clear. Median sternotomy wires identified. Impression: No acute chest process is seen. Electronically signed by: Rodrick Lowe MD (10/30/2017 2:36 PM) [id number]
[2017-10-30 16:00] VITALS: BP 118/71
== END 2017-10-30 16:25 | disposition home or self-care (01) ==
LOC: ER 13:41
DX: J06.9 Acute upper respiratory infection, unspecified (principal); I25.10 Atherosclerotic heart disease of native coronary artery without angina pectoris; Z98.890 Other specified postprocedural states
CPT/HCPCS: 71046; 99284